=== PATIENT | male | born 1960 | race Caucasian/White ===

== ENCOUNTER 2021-02-22 09:54 | Emergency (ER) | payer BC, MEDICARE ==
--- NOTE | 2021-02-22 12:00 | RAD REPORT ---
EXAM DESCRIPTION: RAD - Wrist Right 3 View - 02/22/2021 10:33 am CLINICAL HISTORY: Right wrist pain status post injury FINDINGS: Moderately displaced fracture involves the distal radius. A 3 centimeter lucency is present at the fracture site which may indicate a fractures pathologic. No dislocation
--- NOTE | 2021-02-22 13:39 | ER ---
Nurse's Notes [facility] Name: Andrés Medellin Age: 60 yrs Sex: Male : 1960 Arrival Date: 02/22/2021 Time: 09:57 Bed 23 Private MD: Diagnosis: Pathological fracture, right radius-closed Presentation: 02/22 10:12 Chief complaint: Patient states: "I tripped and fell today and landed right onto my aa5 right wrist". Pt c/o pain to right wrist. Coronavirus screen: At this time, the client does not indicate any symptoms associated with coronavirus-19. Ebola Screen: Patient negative for fever greater than or equal to 101.5 degrees Fahrenheit, and additional compatible Ebola Virus Disease symptoms. Initial Sepsis Screen: Does the patient meet any 2 criteria? No. Patient's initial sepsis screen is negative. Does the patient have a suspected source of infection? No. Patient's initial sepsis screen is negative. Risk Assessment: Do you want to hurt yourself or someone else? Patient reports no desire to harm self or others. Onset of symptoms was February 2021. 10:12 Method Of Arrival: Wheelchair aa5 10:12 Acuity: INGRIS 4 aa5 Historical: - Allergies: 10:14 No Known Allergies; aa5 - PMHx: 10:14 Hypertension; aa5 - PSHx: 10:14 jaw sx; rotator cuff sx; aa5 - Immunization history:: Adult Immunizations unknown. - Social history:: Smoking status: Patient/guardian denies using tobacco, the patient reports quitting approximately 2 years ago. Screenin:40 Abuse screen: Denies threats or abuse. Nutritional screening: No deficits noted. aa5 Tuberculosis screening: No symptoms or risk factors identified. Fall Risk Fall in past 12 months (25 points). Ambulatory Aid- Crutches/Cane/Walker (15 pts). Assessment: 12:40 General: Appears comfortable, Behavior is calm, cooperative. Pain: Complains of pain in aa5 right wrist. Neuro: Level of Consciousness is awake, alert, obeys commands, Oriented to person, place, time, situation. Cardiovascular: Capillary refill < 3 seconds is brisk in bilateral fingers Patient's skin is warm and dry. Respiratory: Airway is patent Respiratory effort is even, unlabored, Respiratory pattern is regular, symmetrical. GI: No signs and/or symptoms were reported involving the gastrointestinal system. : No signs and/or symptoms were reported regarding the genitourinary system. EENT: No signs and/or symptoms were reported regarding the EENT system. Derm: Skin is pink, warm \\T\\ dry. Musculoskeletal: Swelling present in right wrist Reports pain in right wrist. 13:30 Reassessment: Patient is alert, oriented x 3, equal unlabored respirations, skin aa5 warm/dry/pink. 14:00 Reassessment: Patient is alert, oriented x 3, equal unlabored respirations, skin aa5 warm/dry/pink. 14:30 Reassessment: Patient is alert, oriented x 3, equal unlabored respirations, skin aa5 warm/dry/pink. Vital Signs: 10:12 BP 135 / 69; Pulse 83; Resp 18 S; Temp 97.9(TE); Pulse Ox 97% on R/A; Weight 115.67 kg aa5 (R); Height 5 ft. 11 in. (180.34 cm) (R); Pain 8/10; 13:30 BP 151 / 69; Pulse 85; Resp 16 S; Pulse Ox 98% on R/A; aa5 10:12 Body Mass Index 35.57 (115.67 kg, 180.34 cm) aa5 ED Course: 09:57 Patient arrived in ED. as 10:12 Arm band placed on. aa5 10:13 Triage completed. aa5 10:20 X-ray completed. Patient tolerated procedure well. md1 10:33 Wrist Right 3 View XRAY In Process Unspecified. EDMS 12:40 Patient has correct armband on for positive identification. Bed in low position. Call aa5 light in reach. Side rails up X 1. 12:41 Vincent Glasgow MD is Attending Physician. kdr 12:46 Katrin Hardy RN is Primary Nurse. aa5 13:38 Kole Huynh MD is Referral Physician. kdr 14:10 Orthoglass splint: Sugar tong splint applied on right arm. Sling applied to right arm. dh4 14:30 No provider procedures requiring assistance completed. Patient did not have IV access aa5 during this emergency room visit. Administered Medications: 13:30 Drug: TORadol - Ketorolac 15 mg Route: IM; Site: right deltoid; aa5 14:00 Follow up: Response: No adverse reaction aa5 Outcome: 13:38 Discharge ordered by . kdr 14:30 Discharged to home via wheelchair. aa5 14:30 Condition: stable 14:30 Discharge instructions given to patient, Instructed on discharge instructions, follow up and referral plans. medication usage, Demonstrated understanding of instructions, follow-up care, medications, Prescriptions given X 1. 14:32 Patient left the ED. aa5 Signatures: Dispatcher [employer] EDMS Vincent Glasgow MD MD kdr Martinez, Amelia as Calderon, Audri RN RN aa5 Lorene Arcos md1 Praneeth Issa 4 Corrections: (The following items were deleted from the chart) 10:16 10:14 Pulse 83bpm; Resp 18bpm; Spontaneous; Pulse Ox 97% RA; 115.67 kg Reported; Height aa5 5 ft. 11 in. Reported; BMI: 35.5; Pain 8/10; aa5 10:16 10:12 BP 135 / 69; Pulse 83bpm; Resp 18bpm; Spontaneous; Pulse Ox 97% RA; 115.67 kg aa5 Reported; Height 5 ft. 11 in. Reported; BMI: 35.5; Pain 8/10; aa5
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
[2021-02-22] MEDS ORDERED: KETOROLAC 30 MG/ML INJ ONE (13:46)
== END 2021-02-22 14:32 | disposition home or self-care (01) ==
LOC: ER 09:54
PROC: 2W3CX1Z Immobilization of Right Lower Arm using Splint (ICD-10-PCS; principal; 2021-02-22)
DX: S52.91XA Unspecified fracture of right forearm, initial encounter for closed fracture (principal); W19.XXXA Unspecified fall, initial encounter; Y93.9 Activity, unspecified; Y92.009 Unspecified place in unspecified non-institutional (private) residence as the place of occurrence of the external cause; I10 Essential (primary) hypertension
CPT/HCPCS: 96372; 99284

== ENCOUNTER 2022-04-11 13:25 | Emergency (ER) | payer OTHER ==
--- OUTSIDE RECORDS SUMMARY | 2022-04-11 13:30 | XMS REPORT | Continuity of Care Document ---
:1960 Author Organization [facility] t Address [address] [place] [address] Care Team Providers Name Role Phone VLAD DAVIS Primary Care Physician Unavailable SHILO Attending Clinician Unavailable SYSTEM, NOT IN Attending Clinician Unavailable Only, Test Attending Clinician Unavailable Ama GONZALEZ Attending Clinician AMA Attending Clinician Unavailable AMIRA Attending Clinician Unavailable KRISTIN Attending Clinician Unavailable OBEY PERDUE Attending Clinician Unavailable Galileo PARK Attending Clinician Unavailable DESHAUN Attending Clinician Unavailable DESHAUN Attending Clinician Unavailable Doctor Unassigned, Name Attending Clinician Unavailable Jarod GENTILE Attending Clinician Unavailable SETH URIAS Attending Clinician Unavailable Jarod Gentile MD Attending Clinician Gilberto PAZ Attending Clinician Unavailable Javier GONZALEZ Attending Clinician Nick TIWARI Attending Clinician August Varghese MD Attending Clinician Marcelo Grissom Attending Clinician Bolivar Ramírez MD Attending Clinician BOLIVAR RAMÍREZ Attending Clinician Unavailable [place] MD Attending Clinician Delmi Whitman MD Attending Clinician Delmi WHITMAN Attending Clinician Unavailable Marcelo FUNES Attending Clinician Unavailable Marcelo Lloyd Attending Clinician Tangela GONZALEZ Attending Clinician Nick TIWARI Admitting Clinician Payers Payer Name Policy Type Policy Number Effective Date Expiration Date Marcelo BOATENG/REGIS [id number] 2021 MEDICARE ADVANTAGE 00:00:00 [facility] KILO [id number] 2020 00:00:00 Problems Condition Condition Condition Status Onset Resolution Last Treating Co mments Source Name Details Category Date Date Treatment Clinician Date Coronary Coronary Disease Active Unive rs artery artery 6-18 [place] [facility] Atypical Atypical Disease Active Unive rs chest pain chest pain 6-17 it y of 00:00: [address] Obesity Obesity Disease Active Univers (BMI (BMI 6-17 ity of 30-39.9) 30-39.9) 00:00: [address] Essential Essential Disease Active Uni vers hypertensi hypertensi 6-17 it y of on on 00:00: [address] Dyslipidem Dyslipidem Disease Active U elida ia ia 6-17 ity of 00:00: [address] Lung Lung Disease Active Univers cancer cancer 6-15 ity of 00:00: [address] Lung mass Lung mass Disease Active Uni vers 5-20 ity of 00:00: [address] 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 00:00: [place] of right of right 00 Medica l radius due radius due Br anch to to neoplastic neoplastic disease disease with with routine routine healing, healing, subsequent subsequent encounter encounter No known No known Disease Unive rs active active ity of problems problems [facility] Allergies, Adverse Reactions, Alerts Allergy Allergy Status Severity Reaction(s) Onset Inactive Treating Comm ents Source Name Type Date Date Clinician NO KNOWN Drug Active Univers ALLERGIE Class ity of S [facility] Social History Social Habit Start Date Stop Date Quantity Comments Source Exposure to Not sure University of SARS-CoV-2 [facility] (event) Branch Education 2021-05-03 2021-05-03 15 University of 00:00:00 00:00:00 [facility] Tobacco Comment 2021-05-03 2021-05-03 Quit 2.5 years Unive rsity of 00:00:00 00:00:00 ago [facility] Tobacco use and 2021-02-05 2021-02-05 Never used [facility] llege of exposure 00:00:00 00:00:00 Medicine Alcohol intake 2021-02-05 2021-02-05 Current drinker [facility] of 00:00:00 00:00:00 of alcohol Medicine (finding) Sex Ass[birth year] [facility] llege of 00:00:00 00:00:00 Medicine Smoking Status Start Date Stop Date Source Current some day 2021-04-04 00:00:00 [facility] smoker [facility] Former smoker 2021-02-05 00:00:00 2021-02-05 00:00:00 [facility] home of [facility] Medications Ordered Filled Start Stop Current Ordering Indication Dosage Frequency Signature Comments Components Source Medication Medication Date Date Medication? Clinician (SIG) Name Name gadoteridol 2020- No [id number] .2mL/kg 21.7 mL Univers (PROHANCE-2 05-09 (0.2 mL/kg i ty of 0 mL) 16:30: 16:21 ?108.5 [place] injection 00 :00 kg), Medical 21.7 mL Intravenou Branch s, ONCE, 1 dose, Fri05/09/21 at 1130, Routine tc 2020- No [id number] 25i 25 Univer s 99m-medrona 05-07 millicurie i ty of te 16:00: 15:55 , [place] (DRAXIMAGE 00 :00 Intravenou Med ical MDP-25) s, ONCE, 1 Branch injection dose, 05/07/21 at millicurie 1100, Routine aspirin 81 Yes [id number] 81mg Take 1 U nivers mg chewable 6-19 tablet by ity of tablet 00:00: mouth [place] 00 daily. [facility] Branch aspirin 81 Yes [id number] 81mg Take 1 U nivers mg chewable 6-19 tablet by ity of tablet 00:00: mouth [place] 00 daily. [facility] aspirin 81 Yes [id number] 81mg Take 1 U nivers mg chewable 6-19 tablet by ity of tablet 00:00: mouth [place] 00 daily. [facility] aspirin 81 2020-0 Yes [id number] 81mg Take 1 U nivers mg chewable 6-19 tablet by ity of tablet 00:00: mouth [place] 00 daily. Medical Branch aspirin 81 2020-0 Yes [id number] 81mg Take 1 U nivers mg chewable 6-19 tablet by ity of tablet 00:00: mouth [place] 00 daily. Medical Branch aspirin 81 2020-0 Yes [id number] 81mg Take 1 U nivers mg chewable 6-19 tablet by ity of tablet 00:00: mouth [place] 00 daily. Medical Branch aspirin 81 2020-0 Yes [id number] 81mg Take 1 U nivers mg chewable 6-19 tablet by ity of tablet 00:00: mouth [place] 00 daily. Medical Branch aspirin 81 2020-0 Yes [id number] 81mg Take 1 U nivers mg chewable 6-19 tablet by ity of tablet 00:00: mouth [place] 00 daily. [facility] Branch diazePAM 5 0 Yes 10mg Take 10 mg U nivers mg tablet 6-18 by mouth. ity o f 18:53: [address] thyroid 60 2020-0 Yes 60mg Take 60 mg U nivers mg tablet 6-18 by mouth. ity o f 18:53: [address] diazePAM 5 2020-0 Yes 10mg Take 10 mg U nivers mg tablet 6-18 by mouth. ity o f 18:53: [address] thyroid 60 2020-0 Yes 60mg Take 60 mg U nivers mg tablet 6-18 by mouth. ity o f 18:53: [address] diazePAM 5 0 Yes 10mg Take 10 mg U nivers mg tablet 6-18 by mouth. ity o f 18:53: [address] thyroid 60 2020-0 Yes 60mg Take 60 mg U nivers mg tablet 6-18 by mouth. ity o f 18:53: [address] diazePAM 5 2020-0 Yes 10mg Take 10 mg U nivers mg tablet 6-18 by mouth. ity o f 18:53: [address] thyroid 60 2020-0 Yes 60mg Take 60 mg U nivers mg tablet 6-18 by mouth. ity o f 18:53: [address] diazePAM 5 2020-0 Yes 10mg Take 10 mg U nivers mg tablet 6-18 by mouth. ity o f 18:53: [address] thyroid 60 2020-0 Yes 60mg Take 60 mg U nivers mg tablet 6-18 by mouth. ity o f 18:53: [address] diazePAM 5 2020-0 Yes 10mg Take 10 mg U nivers mg tablet 6-18 by mouth. ity o f 18:53: [address] thyroid 60 2020-0 Yes 60mg Take 60 mg U nivers mg tablet 6-18 by mouth. ity o f 18:53: [address] diazePAM 5 2020-0 Yes 10mg Take 10 mg U nivers mg tablet 6-18 by mouth. ity o f 18:53: [address] thyroid 60 2020-0 Yes 60mg Take 60 mg U nivers mg tablet 6-18 by mouth. ity o f 18:53: [address] diazePAM 5 2020-0 Yes 10mg Take 10 mg U nivers mg tablet 6-18 by mouth. ity o f 18:53: [address] thyroid 60 2020-0 Yes 60mg Take 60 mg U nivers mg tablet 6-18 by mouth. ity o f 18:53: [address] sulfur 2020-0 2020- No [id number] 5mL 5 mL, Unive rs hexafluorid 18 05-04 Intravenou i ty of e microsphr 15:30: 15:30 s, ONCE, 1 [place] (LUMASON) 00 :00 dose, Fri Medic al injection 5 05/04/21 at Br anch mL 1030, Routine
cleaning crew member approving Restricted medication : CHINTAN FORD lisinopriL Yes 40mg 40 mg, Unive rs (PRINIVIL,Z 18 Oral, ity of ESTRIL) 14:00: DAILY, [place] tablet 40 00 First dose Medi frances mg on Fri Branch 05/04/21 at 0900, Until Discontinu ed fenofibrate Yes 67mg 67 mg, Univ ers micronized 18 Oral, ity of (LOFIBRA) 14:00: DAILY, [place] capsule 67 00 First dose Med ical mg on Fri Branch 05/04/21 at 0900, Until Discontinu ed aspirin Yes 81mg 81 mg, Univers chewable 6-18 Oral, ity of tablet 81 14:00: DAILY, [place] mg 00 First dose Medical on Fri Branch 05/04/21 at 0900, Until Discontinu ed, Routine diazePAM 5 Yes 10mg Take 10 mg U nivers mg tablet 6-18 by mouth. ity o f 13:53: [address] thyroid 60 2020-0 Yes 60mg Take 60 mg U nivers mg tablet 6-18 by mouth. ity o f 13:53: [address] carvediloL Yes 12.5mg 12.5 mg, U nivers (COREG) 6-18 Oral, BID ity of tablet 12.5 13:00: [place] 00 First dose Medical on Fri Branch 05/04/21 at 0800, Until Discontinu ed, Routine thyroid Yes 60mg 60 mg, Univers (ARMOUR 6-18 Oral, ity of THYROID) 11:00: QAM-0600, [place] tablet 60 00 First dose Medi frances mg on Fri Branch 05/04/21 at 0600, Until Discontinu ed, Routine carvediloL Yes [id number] 12.5mg Take 1 Univers 12.5 mg 6-18 tablet by ity of tablet 00:00: mouth (two) Medical times Branch daily with meals. carvediloL Yes [id number] 12.5mg Take 1 Univers 12.5 mg 6-18 tablet by ity of tablet 00:00: mouth (two) Medical times Branch daily with meals. carvediloL Yes [id number] 12.5mg Take 1 Univers 12.5 mg 6-18 tablet by ity of tablet 00:00: mouth 2 (two) Medical times Branch daily with meals. carvediloL 0 Yes [id number] 12.5mg Take 1 Univers 12.5 mg 6-18 tablet by ity of tablet 00:00: mouth (two) Medical times Branch daily with meals. carvediloL Yes [id number] 12.5mg Take 1 Univers 12.5 mg 6-18 tablet by ity of tablet 00:00: mouth 2 (two) Medical times Branch daily with meals. carvediloL Yes [id number] 12.5mg Take 1 Univers 12.5 mg 6-18 tablet by ity of tablet 00:00: mouth 2 [place] (two) Medical times Branch daily with meals. carvediloL Yes [id number] 12.5mg Take 1 Univers 12.5 mg 6-18 tablet by ity of tablet 00:00: mouth 2 [place] 00 (two) Medical times Branch daily with meals. carvediloL Yes [id number] 12.5mg Take 1 Univers 12.5 mg 6-18 tablet by ity of tablet 00:00: mouth 2 [place] (two) Medical times Branch daily with meals. diazePAM Yes 5mg 5 mg, Univers (VALIUM) 05-03 Oral, ity of tablet 5 mg 23:32: BIDPRN, [place] 44 Starting [facility] 05/03/21 at 1832, Until Discontinu ed, Routine, Agitation, Anxiety hydralAZINE Yes 10mg 10 mg, Univ ers (APRESOLINE 05-03 Slow IV ity o f ) injection 23:21: Push, [place] 10 mg 02 Q6HPRN, Medical Starting Branch [facility] 05/03/21 at 1821, Until Discontinu ed, Routine, DBP=>100; SBP=>160, For SBP > 160
Ind ication: Hypertensi ve Emergency enoxaparin Yes 40mg 40 mg, Unive rs (LOVENOX) 05-03 Subcutaneo ity of injection 22:00: [place], [place], [place] 40 mg 00 First dose Medical on [facility] Branch 05/03/21 at 1700, Until Discontinu ed, Routine morpHINE 2020- No 4mg 4 mg, Slow Un cat injection 4 05-0318 IV Push, ity of mg 21:28: 21:27 Q3HPRN, [place] 53 :53 Starting [facility] 05/03/21 at 1628, Until Fri05/04/21 at 1627, Routine, Pain (scale 7-10) HYDROcodone 2020- No 1{tbl} 1 tablet, Univers -acetaminop 05-0319 Oral, ity of hen (NORCO 21:28: 21:27 Q6HPRN, [place] 5) 5-325 mg 43 :43 Starting Medi frances tablet 1 [facility] [place] tablet 05/03/21 at 1628, Until 05/05/21 at 1627, Routine, Pain (scale 4-6) acetaminoph Yes 650mg 650 mg, Un cat en 05-03 Oral, ity of (TYLENOL) 21:28: Q6HPRN, [place] tablet 650 40 Starting Medic al mg [facility]ie [place] 05/03/21 at 1628, Until Discontinu ed, Routine, Pain (scale 1-3) aspirin 2020- No 325mg 325 mg, Unive rs tablet 325 05-03 Oral, ity of mg 19:15: 18:39 ONCE, 1 [place] 00 :00 dose, [facility] 05/03/21 at [place] 1415, STAT cloNIDine 2020- No .1mg 0.1 mg, Univ ers (CATAPRES) 05-03 Oral, ity of tablet 0.1 19:00: 18:39 ONCE, 1 [place] mg 00 :00 dose, [facility] 05/03/21 at [place] 1400, STAT iopamidol 2020- No [id number] 100mL 100 mL, Univers (ISOVUE 05-03 Intravenou ity o f 370-500 mL) 18:30: 17:21 s, ONCE, 1 [place] injection 00 :00 dose, Jessie Medic al 100 mL 05/03/21 at [place] 1330, Routine hydralAZINE 2020- No PRN, Unive rs (APRESOLINE 5-25 05-25 Starting ity of ) injection 18:40: 18:40 [facility] 00 :00 04/10/21 at [facility] 1340, Branch Until [facility] 04/10/21 at 1340, STAT hydralAZINE 2020- No PRN, Unive rs (APRESOLINE 5-25 05-25 Starting ity of ) injection 18:40: 18:40 [facility] 00 :00 04/10/21 at Medical 1340, Branch Until [facility] 04/10/21 at 1340, STAT gadoteridol 2020- No [id number] .2mL/kg 0.2 mL/kg, Univers (PROHANCE-2 03-29 Intravenou i ty of 0 mL) 20:15: 20:14 s, ONCE, 1 [place] injection 00 :00 dose, Jessie Medic al 0.2 mL/kg 03/29/21 at [facility] 1515, Routine iohexol 2020- No [id number] 120mL 120 mL, Univers (OMNIPAQUE 03-15 Intravenou it y of 350 18:15: 17:50 s, ONCE, 1 [place] BULK-150 00 :00 dose, Jessie Medica l mL) 03/15/21 at Branch injection 1315, 120 mL Routine diazePAM 5 Yes 10mg Take 10 mg U nivers mg tablet 4-13 by mouth. ity o f 19:40: [address] thyroid 60 2020-0 Yes 60mg Take 60 mg U nivers mg tablet 4-13 by mouth. ity o f 19:40: [address] diazePAM 5 0 Yes 10mg Take 10 mg U nivers mg tablet 4-13 by mouth. ity o f 19:40: [address] thyroid 60 0 Yes 60mg Take 60 mg U nivers mg tablet 4-13 by mouth. ity o f 19:40: [address] diazePAM 5 2020-0 Yes 10mg Take 10 mg U nivers mg tablet 4-13 by mouth. ity o f 19:40: [address] thyroid 60 2020-0 Yes 60mg Take 60 mg U nivers mg tablet 4-13 by mouth. ity o f 19:40: [address] diazePAM 5 0 Yes 10mg Take 10 mg U nivers mg tablet 4-13 by mouth. ity o f 19:40: [address] thyroid 60 2020-0 Yes 60mg Take 60 mg U nivers mg tablet 4-13 by mouth. ity o f 19:40: [address] diazePAM 5 2020-0 Yes 10mg Take 10 mg U nivers mg tablet 4-13 by mouth. ity o f 19:40: [address] thyroid 60 2020-0 Yes 60mg Take 60 mg U nivers mg tablet 4-13 by mouth. ity o f 19:40: [address] diazePAM 5 2020-0 Yes 10mg Take 10 mg U nivers mg tablet 4-13 by mouth. ity o f 19:40: [address] thyroid 60 2020-0 Yes 60mg Take 60 mg U nivers mg tablet 4-13 by mouth. ity o f 19:40: [address] diazePAM 5 2020-0 Yes 10mg Take 10 mg U nivers mg tablet 4-13 by mouth. ity o f 19:40: [address] thyroid 60 2020-0 Yes 60mg Take 60 mg U nivers mg tablet 4-13 by mouth. ity o f 19:40: [address] diazePAM 5 2020-0 Yes 10mg Take 10 mg U nivers mg tablet 4-13 by mouth. ity o f 19:40: [address] thyroid 60 2020-0 Yes 60mg Take 60 mg U nivers mg tablet 4-13 by mouth. ity o f 19:40: [address] diazePAM 5 2020-0 Yes 10mg Take 10 mg U nivers mg tablet 4-13 by mouth. ity o f 19:40: [address] thyroid 60 2020-0 Yes 60mg Take 60 mg U nivers mg tablet 4-13 by mouth. ity o f 19:40: [address] diazePAM 5 2020-0 Yes 10mg Take 10 mg U nivers mg tablet 4-13 by mouth. ity o f 19:40: [address] thyroid 60 2020-0 Yes 60mg Take 60 mg U nivers mg tablet 4-13 by mouth. ity o f 19:40: [address] diazePAM 5 2020-0 Yes 10mg Take 10 mg U nivers mg tablet 4-13 by mouth. ity o f 19:40: [address] thyroid 60 2020-0 Yes 60mg Take 60 mg U nivers mg tablet 4-13 by mouth. ity o f 19:40: [address] diazePAM 5 2020-0 Yes 10mg Take 10 mg U nivers mg tablet 4-13 by mouth. ity o f 19:40: [address] thyroid 60 2020-0 Yes 60mg Take 60 mg U nivers mg tablet 4-13 by mouth. ity o f 19:40: [address] diazePAM 5 2020-0 Yes 10mg Take 10 mg U nivers mg tablet 4-13 by mouth. ity o f 19:40: [address] thyroid 60 2020-0 Yes 60mg Take 60 mg U nivers mg tablet 4-13 by mouth. ity o f 19:40: [address] diazePAM 5 2020-0 Yes 10mg Take 10 mg U nivers mg tablet 4-13 by mouth. ity o f 19:40: [address] thyroid 60 2020-0 Yes 60mg Take 60 mg U nivers mg tablet 4-13 by mouth. ity o f 19:40: [address] diazePAM 5 2020-0 Yes 10mg Take 10 mg U nivers mg tablet 4-13 by mouth. ity o f 19:40: [address] thyroid 60 2020-0 Yes 60mg Take 60 mg U nivers mg tablet 4-13 by mouth. ity o f 19:40: [address] diazePAM 5 2020-0 Yes 10mg Take 10 mg U nivers mg tablet 4-13 by mouth. ity o f 19:40: [address] thyroid 60 2020-0 Yes 60mg Take 60 mg U nivers mg tablet 4-13 by mouth. ity o f 19:40: [address] diazePAM 5 2020-0 Yes 10mg Take 10 mg U nivers mg tablet 4-13 by mouth. ity o f 19:40: [address] thyroid 60 2020-0 Yes 60mg Take 60 mg U nivers mg tablet 4-13 by mouth. ity o f 19:40: [address] diazePAM 5 2020-0 Yes 10mg Take 10 mg U nivers mg tablet 4-13 by mouth. ity o f 19:40: [address] thyroid 60 2020-0 Yes 60mg Take 60 mg U nivers mg tablet 4-13 by mouth. ity o f 19:40: [address] diazePAM 5 2020-0 Yes 10mg Take 10 mg U nivers mg tablet 4-13 by mouth. ity o f 19:40: [address] thyroid 60 2020-0 Yes 60mg Take 60 mg U nivers mg tablet 4-13 by mouth. ity o f 19:40: [address] diazePAM 5 2020-0 Yes 10mg Take 10 mg U nivers mg tablet 4-13 by mouth. ity o f 19:40: [address] Branch thyroid 60 2020-0 Yes 60mg Take 60 mg U nivers mg tablet 4-13 by mouth. ity o f 19:40: [address] Branch diazePAM 5 2020-0 Yes 10mg Take 10 mg U nivers mg tablet 4-13 by mouth. ity o f 19:40: [address] thyroid 60 2020-0 Yes 60mg Take 60 mg U nivers mg tablet 4-13 by mouth. ity o f 19:40: [place] [id number] Medical Branch acetaminoph 2020-0 Yes Univer s en-codeine 4-08 ity of 300-30 mg 00:00: [place] tablet 00 Medical Branch acetaminoph 2020-0 Yes Univer s en-codeine 4-08 ity of 300-30 mg 00:00: [place] tablet Medical Branch acetaminoph 2020-0 Yes Univer s en-codeine 4-08 ity of 300-30 mg 00:00: [place] tablet 00 Medical Branch acetaminoph 2021-0 Yes Univer s en-codeine 4-08 ity of 300-30 mg 00:00: [place] tablet 00 Medical Branch acetaminoph 2020-0 Yes Univer s en-codeine 4-08 ity of 300-30 mg 00:00: [place] tablet 00 Medical Branch acetaminoph 1-0 Yes Univer s en-codeine 4-08 ity of 300-30 mg 00:00: [place] tablet 00 Medical Branch acetaminoph 1-0 Yes Univer s en-codeine 4-08 ity of 300-30 mg 00:00: [place] tablet 00 Medical Branch acetaminoph 2021-0 Yes Univer s en-codeine 4-08 ity of 300-30 mg 00:00: [place] tablet 00 Medical Branch acetaminoph 1-0 Yes Univer s en-codeine 4-08 ity of 300-30 mg 00:00: [place] tablet 00 Medical Branch acetaminoph 2021-0 Yes Univer s en-codeine 4-08 ity of 300-30 mg 00:00: [place] tablet 00 Medical Branch acetaminoph 2021-0 Yes Univer s en-codeine 4-08 ity of 300-30 mg 00:00: [place] tablet 00 Medical Branch acetaminoph 2021-0 Yes Univer s en-codeine 4-08 ity of 300-30 mg 00:00: [place] tablet 00 Medical Branch acetaminoph 2021-0 Yes Univer s en-codeine 4-08 ity of 300-30 mg 00:00: [place] tablet 00 Medical Branch acetaminoph 2021-0 Yes Univer s en-codeine 4-08 ity of 300-30 mg 00:00: [place] tablet 00 Medical Branch acetaminoph 2021-0 Yes Univer s en-codeine 4-08 ity of 300-30 mg 00:00: [place] tablet 00 Medical Branch acetaminoph 2021-0 Yes Univer s en-codeine 4-08 ity of 300-30 mg 00:00: [place] tablet 00 Medical Branch acetaminoph 2021-0 Yes Univer s en-codeine 4-08 ity of 300-30 mg 00:00: [place] tablet 00 Medical Branch acetaminoph 2021-0 Yes Univer s en-codeine 4-08 ity of 300-30 mg 00:00: [place] tablet 00 Medical Branch acetaminoph 2021-0 Yes Univer s en-codeine 4-08 ity of 300-30 mg 00:00: [place] tablet 00 Medical Branch acetaminoph 2021-0 Yes Univer s en-codeine 4-08 ity of 300-30 mg 00:00: [place] tablet 00 Medical Branch acetaminoph 2021-0 Yes Univer s en-codeine 4-08 ity of 300-30 mg 00:00: [place] tablet 00 Medical Branch acetaminoph 2021-0 1- No Unive rs en-codeine 4-08 -17 ity of 300-30 mg 00:00: 00:00 [place] tablet 00 :00 Medical Branch acetaminoph 2021-0 1- No Unive rs en-codeine 4-08 -17 ity of 300-30 mg 00:00: 00:00 [place] tablet 00 :00 Medical Branch methylPREDN 2020-0 1- No [id number] B ten [place] 02-05 [employer] acetate 19:30: 19:38 of (DEPO-MEDRO 00 :00 Medicin L) 40 MG/ML e 80 mg, lidocaine 1% (10 mg/mL) 2 mL, bupivacaine (MARCAINE) 0.5 % 2 mL methylPREDN 2020- No [id number] Intra-chance [facility] ISolone 3-22 22 cular, [place] acetate 19:30: 19:38 ONCE, 1 of (DEPO-MEDRO 00 :00 dose, Mon Med icin L) 40 MG/ML 02/05/21 at e 80 mg, 1430 lidocaine 1% (10 mg/mL) 2 mL, bupivacaine (MARCAINE) 0.5 % 2 mL metformin Yes 1000mg Take 1,000 Julio (GLUCOPHAGE 3-22 mg by [place] ) 1000 MG 18:32: mouth. of tablet 37 Medicin e thyroid Yes 60mg Take 60 mg [place] (ARMOUR) 60 -22 by mouth. Col lege MG tablet 18:32: of 37 Medicin e ramipril Yes [facility] (ALTACE) 10 2- College MG capsule 00:00: of 00 Medicin e fenofibrate Yes [facility] (TRICOR) 2- College 145 MG 00:00: of tablet 00 Medicin e fenofibrate Yes Univer s 145 mg 2- ity of tablet 00:00: [place] Medical Branch metformin 2020-0 Yes Univers ER 750 mg 2- ity of 24 hr 00:00: [place] tablet Medical Branch ramipriL 10 0 Yes Univer s mg capsule 2- ity of 00:00: Medical Branch fenofibrate 2020-0 Yes Univer s 145 mg 2- ity of tablet 00:00: [place] Medical Branch metformin 2020-0 Yes Univers ER 750 mg 2- ity of 24 hr 00:00: [place] tablet Medical Branch ramipriL 10 0 Yes Univer s mg capsule 2- ity of 00:00: [place] Medical [facility] fenofibrate 2020-0 Yes Univer s 145 mg 2-01 ity of tablet 00:00: [place] Medical Branch metformin 2020-0 Yes Univers ER 750 mg 2- ity of 24 hr 00:00: [place] tablet 00 Medical Branch ramipriL 10 0 Yes Univer s mg capsule 2- ity of 00:00: Medical Branch fenofibrate 2020-0 Yes Univer s 145 mg 2-01 ity of tablet 00:00: [place] 00 Medical Branch metformin 2021-0 Yes Univers ER 750 mg 2-01 ity of 24 hr 00:00: [place] tablet 00 Medical Branch ramipriL 10 2020-0 Yes Univer s mg capsule 2-01 ity of 00:00: [place] Medical Branch fenofibrate 1-0 Yes Univer s 145 mg 2-01 ity of tablet 00:00: [place] Medical [facility] metformin 1-0 Yes Univers ER 750 mg 2-01 ity of 24 hr 00:00: [place] tablet Medical Branch ramipriL 10 2020-0 Yes Univer s mg capsule 2-01 ity of 00:00: [place] Medical Branch fenofibrate 1-0 Yes Univer s 145 mg 2-01 ity of tablet 00:00: [place] Medical [facility] metformin 1-0 Yes Univers ER 750 mg 2-01 ity of 24 hr 00:00: [place] tablet Medical Branch ramipriL 10 2020-0 Yes Univer s mg capsule 2- ity of 00:00: [place] Medical Branch fenofibrate 1-0 Yes Univer s 145 mg 2-01 ity of tablet 00:00: [place] Medical Branch metformin 1-0 Yes Univers ER 750 mg 2-01 ity of 24 hr 00:00: [place] tablet Medical Branch ramipriL 10 2020-0 Yes Univer s mg capsule 2-01 ity of 00:00: [place] [facility] fenofibrate 1-0 Yes Univer s 145 mg 2-01 ity of tablet 00:00: [place] [facility] metformin 2021-0 Yes Univers ER 750 mg 2-01 ity of 24 hr 00:00: [place] tablet Medical Branch ramipriL 10 1-0 Yes Univer s mg capsule 2-01 ity of 00:00: [place] [facility] fenofibrate 2021-0 Yes Univer s 145 mg 2-01 ity of tablet 00:00: [place] [facility] metformin 2021-0 Yes Univers ER 750 mg 2-01 ity of 24 hr 00:00: [place] tablet 00 Medical Branch ramipriL 10 1-0 Yes Univer s mg capsule 2-01 ity of 00:00: [place] [facility] fenofibrate 2021-0 Yes Univer s 145 mg 2-01 ity of tablet 00:00: [place] 00 Medical Branch metformin 2021-0 Yes Univers ER 750 mg 2-01 ity of 24 hr 00:00: [place] tablet Medical Branch ramipriL 10 1-0 Yes Univer s mg capsule 2- ity of 00:00: [place] [facility] fenofibrate 2021-0 Yes Univer s 145 mg 2-01 ity of tablet 00:00: [place] [facility] metformin 1-0 Yes Univers ER 750 mg 2-01 ity of 24 hr 00:00: [place] tablet Medical Branch ramipriL 10 2020-0 Yes Univer s mg capsule 2- ity of 00:00: [place] [facility] fenofibrate 1-0 Yes Univer s 145 mg 2- ity of tablet 00:00: [place] [facility] metformin 1-0 Yes Univers ER 750 mg 2- ity of 24 hr 00:00: [place] tablet Medical Branch ramipriL 10 2020-0 Yes Univer s mg capsule 2- ity of 00:00: [place] [facility] fenofibrate 1-0 Yes Univer s 145 mg 2- ity of tablet 00:00: [place] Medical Branch metformin 2021-0 Yes Univers ER 750 mg 2-01 ity of 24 hr 00:00: [place] [facility] ramipriL 10 1-0 Yes Univer s mg capsule 2- ity of 00:00: [place] [facility] fenofibrate 2021-0 Yes Univer s 145 mg 2- ity of tablet 00:00: [place] [facility] metformin 2021-0 Yes Univers ER 750 mg 2-01 ity of 24 hr 00:00: [place] [facility] ramipriL 10 1-0 Yes Univer s mg capsule 2-01 ity of 00:00: [place] [facility] fenofibrate 2021-0 Yes Univer s 145 mg 2-01 ity of tablet 00:00: [place] [facility] metformin 2021-0 Yes Univers ER 750 mg 2-01 ity of 24 hr 00:00: [place] [facility] ramipriL 10 1-0 Yes Univer s mg capsule 2-01 ity of 00:00: [place] [facility] fenofibrate 2021-0 Yes Univer s 145 mg 2-01 ity of tablet 00:00: [place] 00 [facility] metformin 2021-0 Yes Univers ER 750 mg 2-01 ity of 24 hr 00:00: [place] tablet 00 Medical Branch ramipriL 10 1-0 Yes Univer s mg capsule 2-01 ity of 00:00: Medical Branch fenofibrate 2021-0 Yes Univer s 145 mg 2-01 ity of tablet 00:00: [place] [facility] metformin 2021-0 Yes Univers ER 750 mg 2-01 ity of 24 hr 00:00: [place] tablet 00 Medical Branch ramipriL 10 1-0 Yes Univer s mg capsule 2- ity of 00:00: [place] [facility] fenofibrate 2021-0 Yes Univer s 145 mg 2-01 ity of tablet 00:00: [place] [facility] metformin 1-0 Yes Univers ER 750 mg 2- ity of 24 hr 00:00: [place] [facility] ramipriL 10 1-0 Yes Univer s mg capsule 2- ity of 00:00: [place] [facility] fenofibrate 1-0 Yes Univer s 145 mg 2- ity of tablet 00:00: [place] [facility] metformin 2021-0 Yes Univers ER 750 mg 2-01 ity of 24 hr 00:00: [place] [facility] ramipriL 10 1-0 Yes Univer s mg capsule 2- ity of 00:00: [place] [facility] fenofibrate 2021-0 Yes Univer s 145 mg 2-01 ity of tablet 00:00: [place] [facility] metformin 2021-0 Yes Univers ER 750 mg 2-01 ity of 24 hr 00:00: [place] [facility] ramipriL 10 1-0 Yes Univer s mg capsule 2-01 ity of 00:00: [place] [facility] fenofibrate 2021-0 Yes Univer s 145 mg 2-01 ity of tablet 00:00: [place] [facility] metformin 2021-0 Yes Univers ER 750 mg 2-01 ity of 24 hr 00:00: [place] [facility] ramipriL 10 1-0 Yes Univer s mg capsule 2-01 ity of 00:00: [place] [facility] fenofibrate 2021-0 Yes Univer s 145 mg 2-01 ity of tablet 00:00: [place] [facility] metformin 2021-0 Yes Univers ER 750 mg 2-01 ity of 24 hr 00:00: [place] [facility] ramipriL 10 2020-0 Yes Univer s mg capsule 2-01 ity of 00:00: Medical Branch fenofibrate 2021-0 Yes Univer s 145 mg 2-01 ity of tablet 00:00: [place] [facility] metformin 2021-0 Yes Univers ER 750 mg 2-01 ity of 24 hr 00:00: [place] [facility] ramipriL 10 2020-0 Yes Univer s mg capsule 2-01 ity of 00:00: [place] [facility] fenofibrate 1-0 Yes Univer s 145 mg 2-01 ity of tablet 00:00: [place] [facility] metformin 1-0 Yes Univers ER 750 mg 2- ity of 24 hr 00:00: [place] [facility] ramipriL 10 2020-0 Yes Univer s mg capsule 2- ity of 00:00: [place] [facility] fenofibrate 1-0 Yes Univer s 145 mg 2-01 ity of tablet 00:00: [place] [facility] metformin 1-0 Yes Univers ER 750 mg 2-01 ity of 24 hr 00:00: [place] [facility] ramipriL 10 2020-0 Yes Univer s mg capsule 2-01 ity of 00:00: [place] [facility] fenofibrate 1-0 Yes Univer s 145 mg 2-01 ity of tablet 00:00: [place] [facility] metformin 2021-0 Yes Univers ER 750 mg 2-01 ity of 24 hr 00:00: [place] [facility] ramipriL 10 1-0 Yes Univer s mg capsule 2-01 ity of 00:00: [place] [facility] fenofibrate 2021-0 Yes Univer s 145 mg 2-01 ity of tablet 00:00: [place] [facility] metformin 2021-0 Yes Univers ER 750 mg 2-01 ity of 24 hr 00:00: [place] [facility] ramipriL 10 2020-0 Yes Univer s mg capsule 2-01 ity of 00:00: [place] [facility] fenofibrate 2021-0 Yes Univer s 145 mg 2-01 ity of tablet 00:00: [place] [facility] metformin 2020-0 Yes Univers ER 750 mg 2-01 ity of 24 hr 00:00: [place] [facility] ramipriL 10 2020-0 Yes Univer s mg capsule 2- ity of 00:00: [place] [facility] fenofibrate 2020-0 Yes Univer s 145 mg 2- ity of tablet 00:00: [place] [facility] metformin 2020-0 Yes Univers ER 750 mg 2- ity of 24 hr 00:00: [place] [facility] ramipriL 10 2020-0 Yes Univer s mg capsule 2- ity of 00:00: [place] [facility] fenofibrate 2020-0 Yes Univer s 145 mg 2- ity of tablet 00:00: [place] [facility] metformin 2020-0 Yes Univers ER 750 mg 2- ity of 24 hr 00:00: [place] [facility] ramipriL 10 2020-0 Yes Univer s mg capsule 2- ity of 00:00: [place] [facility] metoprolol 2020-0 Yes Julio (LOPRESSOR) 1-27 College 50 MG 00:00: of tablet 00 Medicin e metoprolol 0 Yes Univers tartrate 50 1-27 ity of mg tablet 00:00: [place] [facility] metoprolol 2020-0 Yes Univers tartrate 50 1-27 ity of mg tablet 00:00: [place] [facility] metoprolol 2020-0 Yes Univers tartrate 50 1-27 ity of mg tablet 00:00: [place] [facility] metoprolol 2020-0 Yes Univers tartrate 50 1-27 ity of mg tablet 00:00: [place] [facility] metoprolol 2020-0 Yes Univers tartrate 50 1-27 ity of mg tablet 00:00: [place] [facility] [place] metoprolol 2020-0 Yes Univers tartrate 50 1-27 ity of mg tablet 00:00: [place] [facility] metoprolol 2020-0 Yes Univers tartrate 50 1-27 ity of mg tablet 00:00: [place] [facility] metoprolol 2020-0 Yes Univers tartrate 50 1-27 ity of mg tablet 00:00: [place] [facility] metoprolol 2020-0 Yes Univers tartrate 50 1-27 ity of mg tablet 00:00: [place] [address] [facility] [place] metoprolol 0 Yes Univers tartrate 50 1-27 ity of mg tablet 00:00: [place] [facility] metoprolol 2020-0 Yes Univers tartrate 50 1-27 ity of mg tablet 00:00: [place] [facility] metoprolol 2020-0 Yes Univers tartrate 50 1-27 ity of mg tablet 00:00: [place] [facility] metoprolol 2020-0 Yes Univers tartrate 50 1-27 ity of mg tablet 00:00: [place] [facility] metoprolol 2020-0 Yes Univers tartrate 50 1-27 ity of mg tablet 00:00: [place] [facility] metoprolol 0 Yes Univers tartrate 50 1-27 ity of mg tablet 00:00: [place] [facility] metoprolol 0 Yes Univers tartrate 50 1-27 ity of mg tablet 00:00: [place] [facility] metoprolol 2020-0 Yes Univers tartrate 50 1-27 ity of mg tablet 00:00: [place] [facility] metoprolol 0 Yes Univers tartrate 50 1-27 ity of mg tablet 00:00: [place] [facility] metoprolol 0 Yes Univers tartrate 50 1-27 ity of mg tablet 00:00: [place] [facility] metoprolol 2020-0 Yes Univers tartrate 50 1-27 ity of mg tablet 00:00: [place] [facility] metoprolol 0 Yes Univers tartrate 50 1-27 ity of mg tablet 00:00: [place] [facility] metoprolol 0 1- No Univer s tartrate 50 1-27 06-18 ity of mg tablet 00:00: 00:00 [place] 00 :00 [facility] [place] metoprolol 0 1- No Univer s tartrate 50 1-27 06-18 ity of mg tablet 00:00: 00:00 [place] 00 :00 [facility] Vital Signs Vital Name Observation Time Observation Value Comments Source Systolic blood 2021-05-04 12:05:00 131 mm[Hg] Univer sity of pressure [facility] Diastolic blood 2021-05-04 12:05:00 88 mm[Hg] Unive rsity of pressure [facility] Heart rate 2021-05-04 12:05:00 69 /min [facility] [place] [facility] Body temperature 2021-05-04 12:05:00 36.56 Analia Univ ersity of [place] [facility] Respiratory rate 2021-05-04 12:05:00 16 /min Univ ersity of [place] [facility] Oxygen saturation in 2021-05-04 12:05:00 99 /min University of Arterial blood by [place] [facility] Pulse oximetry Branch Body weight 2021-05-04 10:00:00 108.5 kg [facility]i ty [facility] [place] [facility] BMI 2021-05-04 10:00:00 33.38 kg/m2 [facility] [place] [facility] Body height 2021-05-04 01:00:00 180.3 cm [facility]i [facility] [place] [facility] Systolic blood 2021-05-01 19:26:00 232 mm[Hg] Univer sity of pressure [place] [facility] Diastolic blood 2021-05-01 19:26:00 114 mm[Hg] Unive rsity of pressure [place] [facility] Heart rate 2021-05-01 19:26:00 90 /min [facility]i [facility] [place] [facility] Body temperature 2021-05-01 19:26:00 35.78 Analia Univ ersity [facility] [place] [facility] Respiratory rate 2021-05-01 19:26:00 19 /min Univ ersity of [place] [facility] Body height 2021-05-01 19:26:00 180.3 cm [facility] [place] [facility] Body weight 2021-05-01 19:26:00 110.179 kg [facility] [place] [facility] BMI 2021-05-01 19:26:00 33.88 kg/m2 Universi ty [facility] [place] [facility] Oxygen saturation in 2021-05-01 19:26:00 98 /min University of Arterial blood by [facility] frances Pulse oximetry Branch Systolic blood 2021-04-10 18:33:00 212 mm[Hg] Univer sity of pressure [place] [facility] Diastolic blood 2021-04-10 18:33:00 125 mm[Hg] Unive rsity of pressure [place] [facility] Heart rate 2021-04-10 18:33:00 64 /min Universi ty [facility] [place] [facility] Respiratory rate 2021-04-10 18:33:00 16 /min Univ ersity of [place] [facility] Oxygen saturation in 2021-04-10 18:33:00 97 /min University of Arterial blood by [facility] Pulse oximetry Branch Systolic blood 2021-03-12 18:54:00 183 mm[Hg] Univer sity of pressure [facility] Diastolic blood 2021-03-12 18:54:00 81 mm[Hg] Unive rsity of pressure [facility] Heart rate 2021-03-12 18:54:00 66 /min Universi ty of [facility] Body height 2021-03-12 18:48:00 185.4 cm Universi ty of [facility] Body weight 2021-03-12 18:48:00 117.028 kg [facility]i ty [facility] [place] [facility] BMI 2021-03-12 18:48:00 34.04 kg/m2 Universi ty of [facility] Systolic blood 2021-02-27 19:36:00 144 mm[Hg] Univer sity of pressure [facility] Diastolic blood 2021-02-27 19:36:00 90 mm[Hg] Unive rsity of pressure [facility] Heart rate 2021-02-27 19:36:00 66 /min Universi ty of [place] [facility] [place] Body height 2021-02-27 19:36:00 185.4 cm Universi ty of [place] [facility] [place] Body weight 2021-02-27 19:36:00 113.399 kg [facility]i [facility] [place] [facility] BMI 2021-02-27 19:36:00 32.98 kg/m2 Universi ty of [facility] Systolic blood 2021-02-05 18:28:00 196 mm[Hg] [facility] pressure Medicine Diastolic blood 2021-02-05 18:28:00 96 mm[Hg] [facility] of pressure Medicine Heart rate 2021-02-05 18:28:00 66 /min [facility] Body height 2021-02-05 18:28:00 [facility] 2021-02-05 18:28:00 122.471 kg [facility] BMI 2021-02-05 18:28:00 37.66 kg/m2 [facility] Procedures Procedure Date / Time Performing Clinician Source Performed AUTHORIZATION FOR RELEASE 2021-05-24 05:01:00 Doctor Unassigned, [facility] [place] [facility] SCANNED LAB RESULTS 2021-05-10 05:01:00 Doctor Unassigned, [facility] [place] MR BRAIN W WO CONTRAST 2021-05-09 16:39:21 BrendaJovi [facility] NM BONE WHOLE BODY 2021-05-07 19:40:22 [facility] NM BONE WHOLE BODY 2021-05-07 19:40[facility]22 [facility] TRANSTHORACIC ECHO (TTE) 2021-05-04 15:18:16 Austin Romero [facility] COMPLETE W/ CONTRAST Medical [facility] CBC WITH DIFF 2021-05-04 11:09:00 Austin Romero [facility] MAGNESIUM 2021-05-04 11:07:00 Austin Romero [facility] BASIC METABOLIC PANEL 2021-05-04 11:07:00 Austin Romero [facility] (NA, K, CL, CO2, GLUCOSE, Medica l Branch BUN, CREATININE, CA) TROPONIN I 2021-05-04 00:34:00 Austin Romero [facility] LIPID PANEL (70659)(TOTAL 2021-05-04 00:34:00 Austin Romero [facility] CHOLESTEROL, [facility] TRIGLYCERIDES, HDL) CT CHEST PULMONARY 2021-05-03 17:25:18 Demarco Herrera [facility] ANGIOGRAM Medical Branch XR CHEST 1 VW 2021-05-03 16:18:35 Javier Demarco [facility] COVID-19 (ID NOW RAPID 2021-05-03 16:18:00 Demarco Herrera [facility] TESTING) Medical Branch LAB ONLY COVID 2021-05-03 16:18:00 Javier Demarco [facility] INTERPRETATION [facility] TROPONIN I 2021-05-03 16:03:00 Javier Demarco [facility] HEPATIC FUNCTION PANEL 2021-05-03 16:03:00 Demarco Herrera [facility] ([id number]) (ALB,T.PRO,BILI Medical Branch T,BU/BC,ALT,AST,ALK PHOS) BASIC METABOLIC PANEL 2021-05-03 16:03:00 Demarco Herrera [facility] (NA, K, CL, CO2, GLUCOSE, Medica l Branch BUN, CREATININE, CA) LIPID PANEL ([id number])(TOTAL 2021-05-03 16:03:00 Ramu Taylor [facility] CHOLESTEROL, [facility] TRIGLYCERIDES, HDL) CBC WITH DIFF 2021-05-03 16:03:00 Demarco Herrera [facility] GLYCOSYLATED HEMOGLOBIN 2021-05-03 16:03:00 Ramu Taylor [facility] (A1C) [facility] PROTHROMBIN TIME / INR 2021-05-03 16:03:00 Javier Demarco [facility] ACTIVATED PARTIAL 2021-05-03 16:03:00 Demarco Herrera [facility] THRMPLAS TATUM [facility] N-TERMINAL PRO-BNP 2021-05-03 16:03:00 Demarco Herrera [facility] HB ECG ROUTINE & RHYTHM 2021-05-03 15:58:19 Demarco Herrera [facility] STRIP [facility] CONSENT/REFUSAL FOR 2021-05-03 15:44:24 Doctor Krystian, [facility] DIAGNOSIS AND TREATMENT [place] [facility] COVID-19 (ID NOW RAPID 2021-04-30 19:17:00 Maddy Gentile [facility] TESTING) [facility] IR BIOPSY MUSCLE 2021-04-10 19:39:16 Aimee gallagher [facility] PERCUTANEOUS WITH Chloe Bari [facility] ULTRASOUND CYTO ORGAN ASPIRATION-FNA 2021-04-10 19:23:00 Jesus Lind [facility] CT ABDOMEN PELVIS W 2021-03-15 18:08:35 Corey Meade [facility] CONTRAST [facility] CT THORAX W CONTRAST 2021-03-15 18:05:16 Corey Meade [facility] NOTICE OF PRIVACY 2021-03-15 17:17:11 Doctor Krystian, [facility] PRACTICES [place] [facility] [place] CONSENT/REFUSAL FOR 2021-03-15 17:16:56 Doctor Krystian, [facility] DIAGNOSIS AND TREATMENT [place] [facility] [place] ASSIGNMENT OF BENEFITS 2021-03-15 17:16:23 Doctor Unassigned, [facility] [place] [facility] EXTERNAL PROVIDER RECORDS 2021-03-08 05:01:00 Doctor Unassigned, [facility] [place] [facility] Plan of Care Planned Activity Planned Date Details Comments Source Future Scheduled ORT - XR HIP LEFT 2V Ordered: [employer] [facility] (CHARGE ONLY) [code = 02/05/2021 of Med icine 99447] Future Scheduled ORT - XR PELVIS AP Ordered: [employer] [facility] (CHARGE ONLY) [code = 02/05/2021 of Med icine 31183] Future Scheduled Screening for malignant [facility] Test neoplasm of colon of Medicin e (procedure) [code = 899874263] Future Scheduled TETANUS SHOT (ADULT) [employer] [code = TETANUS SHOT of Medi cine (ADULT)] Future Scheduled COVID-19 Vaccine (1) [employer] [facility] [code = COVID-19 Vaccine of Medicine (1)] Future Scheduled BMI FOLLOW UP PLAN [code Julio [employer] Test = BMI FOLLOW UP PLAN] of Med icine Future Scheduled Hepatitis C screening [facility] [employer] [facility] (procedure) [code = of Medic ine 367118304] Future Scheduled Human immunodeficiency [employer] virus screening of Medicine (procedure) [code = 857424751] Future Scheduled ZOSTER VACCINE (1 of 2) [facility] Test [code = ZOSTER VACCINE of Me dicine (1 of 2)] Future Scheduled FLU VACCINE > 6 MONTHS [employer] [facility] [code = FLU VACCINE > 6 of M edicine MONTHS] Future Scheduled MEDICARE IPPE (WELCOME [employer] TO MEDICARE) [code = of Medi cine MEDICARE IPPE (WELCOME TO MEDICARE)] Encounters Start End Encounter Admission Attending Care Care Encounter Source Date/Time Date/Time Type Type Clinicians Facility Department ID 2021-09-17 Emergency [facility] [id number] [facility]05 [facility] LAO, [facility] [id number] [place] 15:40:59 [facility] 2021-03-02 Outpatient SYSTEM, YANDEL HUMPHRIES [id number] 14:18:22 PROVIDER Domingo rowell 2022-01-25 2022-01-25 Laboratory Only, Adc Test [facility] 1.2.840. [id number] Univers 13:00:00 13:15:00 Only Dmitri Serrato [id number] [facility] [id number] [facility] [id number] [address] 2022-01-25 2022-01-25 Outpatient R [facility] [id number] [facility] 13:00:00 13:00:00 [id number] [facility] 2022-01-25 2022-01-25 Outpatient R AMA [facility] [id number] [facility] 13:00:00 13:00:00 DMITRI [facility] 2022-01-23 2022-01-23 Outpatient AMIRA [facility] [id number] [place] 00:00:00 00:00:00 JOANN 281 Method i 2022-01-21 2022-01-21 Outpatient FOSTER, [facility] [id number] [place] 00:00:00 00:00:00 ANDRE 963 Method i 2022-01-21 2022-01-21 Outpatient KRISTIN [facility] [id number] [place] 00:00:00 00:00:00 ANDRE 941 Method i 2021-12-31 2021-12-31 Outpatient [facility] [id number] [place] 00:00:00 00:00:00 544 Method i 2021-12-31 2021-12-31 Outpatient KRISTIN [facility] [id number] [place] 00:00:00 00:00:00 ANDRE 139 Method i 2021-12-31 2021-12-31 Outpatient [facility] [id number] [place] 00:00:00 00:00:00 573 Method i 2021-12-31 2021-12-31 Outpatient [facility] [id number] [place] 00:00:00 00:00:00 535 Method i 2021-08-28 2021-08-28 Outpatient Balaji PERDUE [facility] [id number] Univers 10:30:00 10:30:00 SYLVIA [id number] cece mckoy [facility] 2021-08-23 2021-08-23 Outpatient R MARCO [facility] [id number] Univers 08:00:00 08:00:00 GUILHERME [id number] ity [facility] 2021-06-22 2021-06-22 Outpatient R DESHAUNNADIASorin [facility] [id number] Univers 14:00:00 14:00:00 EDOUARD MEADE [id number] i ty of [facility] 2021-06-22 2021-06-22 Outpatient R DESHAUNNADIASorin [facility] [id number] Univers 14:00:00 14:00:00 EDOUARD MEADE i ty [facility] 2021-05-24 2021-05-24 Orders Doctor JUN [id number] Univers 00:00:00 00:00:00 Only Unassigned, TALHA [id number] ity of [place] [facility] [id number] Jese as [phone] [address] 2021-05-22 2021-05-22 Outpatient R [facility] [id number] Univers 13:00:00 13:00:00 [id number] ity [facility] 2021-05-22 2021-05-22 [facility] [id number] Univers 13:00:00 13:00:00 MADDY [facility] 2021-05-22 2021-05-22 Outpatient R BRIDGETT [facility] [id number] Univers 11:00:00 11:00:00 JOVANNI [facility] 2021-05-22 2021-05-22 Outpatient R BRIDGETT [facility] [id number] Univers 10:00:00 10:00:00 JOVANNI [facility] 2021-05-22 2021-05-22 [facility] [id number] Univers 10:00:00 10:00:00 JOVANNI [facility] 2021-05-10 2021-05-10 Orders Doctor JUN Jaquez.[id number] Univers 00:00:00 00:00:00 Only Unassigned, TALHA [id number] ity of [place] [facility] [id number] Jese as [id number] [address] 2021-05-09 2021-05-09 [facility] 1.2.840.114 [id number] Univers 10:25:57 23:59:00 Encounter Maddy Jarod Ma [id number] ity of [place] [id number] [facility] [id number] [facility] 804 Branch 2021-05-09 2021-05-09 [facility] [id number] Univers 11:00:00 11:00:00 MADDY [id number] ity [facility] 2021-05-09 2021-05-09 [facility] [id number] Univers 00:00:00 00:00:00 MADDY ity [facility] 2021-05-07 2021-05-07 [facility] [id number] [id number] Univers 10:45:56 23:59:00 Encounter Maddy Ma [id number] ity of [place] [id number] [place] [address] [id number] [facility] [address] [place] 2021-05-07 2021-05-07 [facility] 1.2.840.114 [id number] Univers 10:15:00 10:44:00 Encounter Maddy Ma [id number] ity of [place] [id number] [facility] [id number] [facility] 805 Branch 2021-05-07 2021-05-07 [facility] [id number] Univers 10:15:00 10:15:00 MADDY ity [facility] 2021-05-07 2021-05-07 Transition Linh Maciassorin 1.2.840.114 [id number] Univers 00:00:00 00:00:00 of Warren Cruz [id number] it y of [place] [id number] [facility] [id number] [facility] 403 Branch 2021-05-03 2021-05-04 Emergency Demarco Herrera [facility] 1.2.840. 114 [id number] Univers 10:50:00 12:33:00 Austin Romero [id number] ity of [place] [id number] [facility] [id number] [facility] 080 Branch 2021-05-03 2021-05-03 Orders Doctor JUN 1.2.840.114 [id number] Univers 00:00:00 00:00:00 Only Unassigned, TALHA [id number] ity of [place] [facility] [id number] Jese as [id number] [facility] 009 Branch 2021-05-01 2021-05-01 Office Jovi Varghese 1.2.840. 114 [id number] Univers 13:32:13 14:32:13 Visit Maddy Gentile [id number] ity of [facility] [id number] Jese as [id number] [facility] [address] [place] 2021-05-01 2021-05-01 Outpatient R [facility] [id number] Univers 14:00:00 14:00:00 [id number] ity [facility] 2021-05-01 2021-05-01 Outpatient R SEFERINO [facility] [id number] Univers 14:00:00 14:00:00 [facility] 2021-04-30 2021-04-30 Laboratory Only, Adc Test [facility] 1.2.840. 114 [id number] Univers 13:59:04 14:14:04 Only Maddy Gentile [id number] ity of [place] [id number] [facility] [id number] [facility] 353 Branch 2021-04-30 2021-04-30 Outpatient R [facility] [id number] Univers 14:00:00 14:00:00 ity [facility] 2021-04-30 2021-04-30 Outpatient R [facility] [id number] Univers 11:00:00 11:00:00 [id number] ity [facility] 2021-04-25 2021-04-25 Radhames Moura [facility] [id number] Univers 00:00:00 00:00:00 Management Roshan Robertson [facility] [id number] ity of Cancer [id number] [facility] Center - [id number] Med ical [facility] 188 Branch 2021-04-23 2021-04-23 Telephone NARESH Ramírez 1.2.840.114 [id number] Univers 00:00:00 00:00:00 Matthew HEALTH [id number] i ty of [facility] [id number] [facility] [id number] [facility] 188 Branch 2021-04-10 2021-04-10 [facility] 1.2.840.114 [id number] Univers 13:07:15 23:59:00 Encounter Matthew [facility] 350.1.13.10 ity of [facility] 4.2.7.2.686 [facility] AT [phone] Ne aurelianojen TATIANNACarol 803 [facility] 2021-04-10 2021-04-10 Outpatient Balaji RAMÍREZ [facility] [id number] Univers 14:00:00 14:00:00 [facility] [id number] [facility] 2021-04-10 Outpatient Balaji RAMÍREZ [facility] [id number] Univers 00:00:00 00:00:00 MATTHEW [facility] 2021-04-05 2021-04-05 [facility] [id number] Univers 00:00:00 00:00:00 Guilherme BARRONPEC 350.1.13.10 ity of IALTY 4.2.7.2.686 [facility] [id number] [facility] AND PIA [facility] [facility] 2021-04-04 2021-04-04 Outpatient Balaji RAMÍREZ [facility] [id number] Univers 16:15:00 16:15:00 [facility]THEW [id number] [facility] 2021-04-04 2021-04-04 Outpatient Balaji RAMÍREZ [facility] [id number] Univers 16:15:00 16:15:00 MATTHEW itcarol [facility] 2021-04-02 2021-04-02 [facility] [id number] Univers 00:00:00 00:00:00 Matthew Talmage 350.1.13.10 i ty [place] [id number] [address] 2021-04-02 2021-04-02 [facility] [id number] Univers 00:00:00 00:00:00 Matthew Talmage 350.1.13.10 i ty [place] [id number] [address] 2021-03-29 2021-03-29 [facility] [id number] Univers 12:31:22 23:59:00 Encounter Matthew SPECIALTY 350.1.13.10 [place] AT [id number] Ne aureliano[address] 2021-03-29 2021-03-29 [facility] [id number] Univers 14:30:00 14:30:00 [facility] [id number] [facility] 2021-03-29 2021-03-29 [facility] [id number] Univers 12:30:43 12:30:43 Encounter Matthew SPECIALTY 350.1.13.10 it[place] [id number] [address] 2021-03-29 2021-03-29 [facility] [id number] Univers 12:28:47 12:29:00 Encounter Matthew SPECIALTY 350.1.13.10 [place] [phone] Ne dic[address] 2021-03-29 2021-03-29 [facility] [id number] Univers 00:00:00 00:00:00 MATTHEW ity [facility] 2021-03-21 2021-03-21 Outpatient RHYS [facility] [id number] Univers 15:15:00 15:15:00 MATTHEW [id number] ity [facility] 2021-03-15 2021-03-15 [facility] [id number] Univers 12:29:31 23:59:00 Encounter Matthew Talmage 350.1.13.10 ity [facility] 4.2.7.2.686 [facility] [id number] [address] 2021-03-15 2021-03-15 [facility] [id number] Univers 15:30:00 15:30:00 MATTHEW [id number] ity [facility] 2021-03-15 2021-03-15 [facility] [id number] Univers 12:20:40 12:28:00 Encounter Matthew Talmage 350.1.13.10 ity [facility] 4.2.7.2.686 [facility] [id number] [address] 2021-03-15 2021-03-15 [facility] [id number] Univers 00:00:00 00:00:00 MATTHEW [facility] 2021-03-12 2021-03-12 Office [facility] [id number] Univers 13:46:55 14:01:55 Visit [facility] 350.1.13.10 it of Surgical 4.2.7.2.686 [facility] [id number] Ne dical es 198 [facility] 2021-03-12 2021-03-12 Outpatient Balaji RAMÍREZ [facility] [id number] -[id number] Univers 08:30:00 08:30:00 MATTHEW [id number] ity [facility] 2021-03-12 2021-03-12 [facility] [id number] Univers 08:30:00 08:30:00 [facility] 2021-03-08 2021-03-08 Orders Doctor JUN [id number] Univers 00:00:00 00:00:00 Only Unassigned, TALHA 350.1.13.10 ity of [place] [facility] 4.2.7.2.686 Jese as [id number] [facility] [address] 2021-03-01 2021-03-01 Outpatient R ANTONETTE, [facility] [id number] Univers 13:00:00 13:00:00 OTIS [id number] [facility] 2021-02-27 2021-02-27 Outpatient R MARIN [facility] [id number] Univers 15:00:00 15:00:00 CONRADO [facility] 2021-02-27 2021-02-27 Office Marin [facility] [id number] Univers 14:27:47 14:42:47 Visit Conrado [facility] 350.1.13.10 it y of Surgical 4.2.7.2.686 Jese as Specialti [id number] Ne dical es 198 [facility] 2021-02-05 2021-02-05 Office XANDER Honeycutt 1.2.840.114 [id number] [facility] 12:35:44 14:38:10 Visit Ramos AMBULATOR 350.1.13.21 College Y 0.2.7.2.686 of [id number] [facility] 600 e Results Test Description Test Test Results Result Source Time Comments Comments MR BRAIN W WO 2021-04 No acute intracranial University CONTRAST -23 findings or evidence of o f [place] 16:58:3 metastasis. A small Medic al 0 arachnoid cyst is seen in Branch the prepontine region. This is anincidental finding.HISTORY:lung ca mets TECHNIQUE: MRI of the brain was performed with and without IV contrast. COMPARISON: None. FINDINGS: No abnormal intracranial enhancement is seen. A small pre-pontine collection is seen in the prepontine region measuringapproximately 2.5 x 1.1 cm (8:11). This is consistent with an arachnoidcyst, as no enhancement diffusion restriction of gradient blooming is seen. The ventricles and sulci are within normal limits for patient's age. There is no midline shift. The basal cisterns are preserved. There is no diffusion restriction to suggest an acute infarct. No abnormal foci of gradient blooming is identified. Motion degradation is seen on the current exam. [facility], Radiant Results Inft User - 05/09/2021 11:59 AM CDT HISTORY:lung ca mets TECHNIQUE: MRI of the brain was performed with and without IV contrast. COMPARISON: None.FINDINGS:No abnormal intracranial enhancement is seen. A small pre-pontine collection is seen in the prepontine region measuringapproximately 2.5 x 1.1 cm (8:11). This is consistent with an arachnoidcyst, as no enhancement diffusion restriction of gradient blooming is seen.The ventricles and sulci are within normal limits for patient's age.There is no midline shift. The basal cisterns are preserved.There is no diffusion restriction to suggest an acute infarct.No abnormal foci of gradient blooming is identified.Motion degradation is seen on the current exam.IMPRESSIONNo acute intracranial findings or evidence of metastasis.A small arachnoid cyst is seen in the prepontine region. This is anincidental finding. NM BONE WHOLE 2020- 1. ?Increased uptake in University BODY -21 the left iliac bone of [place] 20:34:1 suggests osseous Medical 9 metastasis.This corresponds Branch to the lytic lesion seen on the CT from March 15, 2021. 2. ?Focal uptake seen in the right distal radius corresponds to the massseen on the MRI from March 2021, the biopsy-positive metastatic squamous cellcarcinoma. Preliminary Report Dictated by Resident: Niki Mcclure ?MD. Elma, have reviewed this study and agree with theabove report.EXAM DESCRIPTION: Whole Body Bone Scan INDICATION: Metastatic lung cancer COMPARISON: MR 03/29/2021, CT abdomen pelvis 03/15/2021 RADIOPHARMACEUTICAL: 25 mCi technetium 99m MDP administered intravenously. TECHNIQUE:Anterior and posterior whole body images were acquired 3 hours afterradiopharmaceutical administration. Additional anterior and posterior viewsof the pelvis and upper extremities were obtained. FINDINGS: Increased radiotracer uptake is noted in the left iliac bone and rightradius compatible with the known metastatic lesion seen on the comparisonCT and MR. No additional foci of metastatic disease are identified. Normal physiologic uptake is seen in the soft tissues, kidneys, and urinarybladder. [facility], Radiant Results Inft User - 05/07/2021 3:35 PM CDT EXAM DESCRIPTION: Whole Body Bone ScanINDICATION: Metastatic lung cancerCOMPARISON: MR 03/29/2021, CT abdomen pelvis 1RADIOPHARMACEUTICA L: 25 mCi technetium 99m MDP administered intravenously.TECHNIQUE:Ant erior and posterior whole body images were acquired 3 hours afterradiopharmaceutical administration. Additional anterior and posterior viewsof the pelvis and upper extremities were obtained.FINDINGS:Increased radiotracer uptake is noted in the left iliac bone and rightradius compatible with the known metastatic lesion seen on the comparisonCT and MR. No additional foci of metastatic disease are identified. Normal physiologic uptake is seen in the soft tissues, kidneys, and urinarybladder. IMPRESSION1. Increased uptake in the left iliac bone suggests osseous metastasis.This corresponds to the lytic lesion seen on the CT from March 15, 2021.2. Focal uptake seen in the right distal radius corresponds to the massseen on the MRI from March 2021, the biopsy-positive metastatic squamous cellcarcinoma.Preliminary Report Dictated by Resident: Niki Gonzalez MD., have reviewed this study and agree with theabove report. LAB ONLY COVID 2021-04 [facility] INTERPRETATION -18 InterpretationInterpretatio [facility] 15:18:4 n/Recommendations: Medica l 4 Molecular NAAT Tests for Branch Active Infection with the SARS-CoV-2 Virus: The patient has currently tested negative for the SARS-CoV-2 virus that causes COVID-19 illness. This most likely indicates that the patient does not have an active infection with the SARS-CoV-2 virus. However, infection is not completely ruled out as the false negative rate for molecular NAAT testing using a nasopharyngeal sample can be up to 30%, mostly dependent on the timing of sample collection in relation to illness onset and any deficiencies in sampling techniques. If the patient has symptoms concerning for COVID-19 illness, a repeat NAAT test (PCR, Rapid ID Now, etc.) should be performed, at which time the SARS-CoV-2 virus - if present - may have reached a detectable viral load (usually peaking by the end of the first week of symptoms). Tests for IgM and/or IgG Antibodies to the SARS-CoV-2 Virus: If the patient develops COVID-19 illness in the future, testing for IgM and IgG antibodies approximately 3 weeks after illness onset will likely indicate if the patient has produced antibodies to the SARS-CoV-2 virus. However, some patients may take longer to develop detectable antibodies, while some patients who were infected with SARS-CoV-2 may never develop antibodies. While antibodies to SARS-CoV-2 may provide some degree of immunity, at this time the strength and duration of the antibody response is unknown. Interpretation Result Comments:These interpretation comments are based upon all COVID-19 testing the patient has had at [facility], including molecular NAAT testing (more commonly known as PCR testing and Rapid ID Now testing) and antibody testing. It does not take into account any testing that a patient has had outside of the [facility] medical record. [facility] LABORATORY SERVICESCOVID [id number] Rapid ID NOW (no units) ? ? Date ? Value ? 05/03/2021 ? Not Detected ? ? ? 04/30/2021 ? Not Detected ? [facility] LABORATORY SERVICES CBC WITH DIFF 2021-05-04 12:44:08 Test Item Value Reference Range Interpretation Comme nts WBC (test code = 6690-2) See_Comment L [A utomated message] The system which ge nerated this result transmit bernard reference range: 4.20 - 1 0.70 10*3/?L. The reference r silva was not used to interpr et this result as normal/abnor mal. RBC (test code = 789-8) See_Comment [Au tomated message] The system which ge nerated this result transmit bernard reference range: 4.26 - 5 .52 10*6/?L. The reference r silva was not used to interpr et this result as normal/abnor mal. HGB (test code = 718-7) 13.6 g/dL 12.2-16.4 HCT (test code = 4544-3) 39.0 % 38.4-49.3 MCV (test code = 787-2) 91.5 fL 81.7-95.6 MCH (test code = 785-6) 31.9 pg 26.1-32.7 MCHC (test code = 786-4) 34.9 g/dL 31.2-35.0 RDW-SD (test code = 99945-3) 41.5 fL 38.5-51.6 RDW-CV (test code = 788-0) 12.6 % 12.1-15.4 PLT (test code = 777-3) See_Comment [Au tomated message] The system which ge nerated this result transmit bernard reference range: 150 - 32 8 10*3/?L. The reference range was not used to interpret th is result as normal/abnormal . MPV (test code = 87894-6) 9.2 fL 9.8-13.0 L NRBC/100 WBC (test code = See_Comment [ Automated message] The 1521084610) system which ge nerated this result transmit bernard reference range: 0.0 - 10 .0 /100 WBCs. The reference r silva was not used to interpr et this result as normal/abnor mal. NRBC x10^3 (test code = <0.01 See_Comment [Au tomated message] The 8400977221) system which ge nerated this result transmit bernard reference range: 10*3/?L. The reference range was not u sed to interpret this result as normal/abnormal . GRAN MAT (NEUT) % (test code 42.5 % = 770-8) IMM GRAN % (test code = 0.00 % 7762619005) LYMPH % (test code = 736-9) 35.4 % MONO % (test code = 5905-5) 18.0 % EOS % (test code = 713-8) 3.3 % BASO % (test code = 706-2) 0.8 % GRAN MAT x10^3(ANC) (test 1.56 10*3/uL 1.99-6.95 L code = 4050452697) IMM GRAN x10^3 (test code = <0.03 0.00-0.06 9027509161) LYMPH x10^3 (test code = 1.30 10*3/uL 1.09-3.23 731-0) MONO x10^3 (test code = 0.66 10*3/uL 0.36-1.02 742-7) EOS x10^3 (test code = 0.12 10*3/uL 0.06-0.53 711-2) BASO x10^3 (test code = 0.03 10*3/uL 0.01-0.09 704-7) Lab Interpretation (test Abnormal code = 43380-5) [facility] 12[facility]04:44 Test Item Value Reference Range Interpretation Comments MAGNESIUM (test code = 5389856404) 1.5 mg/dL 1.7-2.4 L Lab Interpretation (test code = Abnormal 33615-1) [facility] (NA, K, CL, CO2, GLUCOSE, BUN, CREATININE, CA)2021-05-04 12:04:29 Test Item Value Reference Range Interpretation Comments NA (test code = 137 mmol/L 135-145 9753065659) K (test code = 3.8 mmol/L 3.5-5.0 9497528487) CL (test code = 105 mmol/L 98-108 2031095509) CO2 TOTAL (test code = 27 mmol/L 23-31 4932677187) AGAP (test code = 2-16 5604105150) BUN (test code = 13 mg/dL 7-23 5001952450) GLUCOSE (test code = 101 mg/dL 70-110 6137540817) CREATININE (test code = 0.67 mg/dL 0.60-1.25 6572950772) CALCIUM (test code = 10.7 mg/dL 8.6-10.6 H 4068254276) eGFR (test code = mL/min/1.73m2 5173121788) VICENTE (test code = VICENTE) Association of Glomerular Filtration Rate (GFR) and Staging of Kidney Disease* + --+ --+ ------+| GFR (mL/min/1.73 m2) ?| With Kidney Damage ?| ?Without Kidney Damage+ --------+ --------+ +| ?>90 ?| ?Stage one ?| ? Normal ?+ ---+ ---+ -------+| ?60-89 ?| ?Stage two ?| ? Decreased GFR ? + --+ --+ ------+| ?30-59 ?| ?Stage three ?| ? Stage three ? + --+ --+ ------+| ?15-29 ?| ?Stage four ? | ? Stage four ?+ ---+ ---+ -------+| ?<15 (or dialysis) ? ?| ?Stage five ? | ? Stage five ?+ ---+ ---+ -------+ *Each stage assumes the associated GFR level has been in effect for at least three months. ?Stages 1 to 5, with or without kidney disease, indicate chronic kidney disease. Notes: Determination of stages one and two (with eGFR >59mL/min/1.73 m2) requires estimation of kidney damage for at least three months as defined by structural or functional abnormalities of the kidney, manifested by either:Pathological abnormalities or Markers of kidney damage (including abnormalities in the composition of the blood or urine or abnormalities in imaging tests). Lab Interpretation Abnormal (test code = 10743-5) [facility] [id number] 01:31:30 Test Item Value Reference Range Interpretation Comments TROPONIN I (test 0.009 ng/mL See_Comment [Automated code = 1827666349) message] The system which generated this result transmitted reference range : <=0.034. The reference range was not used to interpret this result as normal/abnormal . VICENTE (test code = Equal or Less than VICENTE) 0.034 ng/ml---Normal ?Note: Cardiac troponin begins to rise 3-4 hours after the onset of ischemia. Repeat in 4-6 hours if the sample was drawn within 3-4 hours of the onset of the symptom and found normal. Between 0.035 and 0.120 ng/mL--- Borderline. Questionable myocardial injury or necrosis ? ?Note: Serial measurement may be necessary to confirm or exclude the diagnosis of myocardial injury or necrosis; Clinical correlation (symptoms, EKGs, imaging studies, and others) required; Repeat in 4-6 hours if clinically indicated. ? Equal or Higher than 0.121 ng/mL---Abnormal. Myocardial Injury or Necrosis Likely ? Biotin has been reported to cause a negative bias, interpret results relative to patient's use of biotin. ? Lab Interpretation Normal (test code = 63339-5) [facility] (27557)(TOTAL CHOLESTEROL, TRIGLYCERIDES, HDL)2021-05-04 01:19:31 Test Item Value Reference Range Interpretation Comments CHOL (test code = 147 mg/dL 120-200 0806185757) HDL (test code = 37 mg/dL >40 L 6481074214) HDLC RATIO (test code = See_Comment [Au tomated message] 6526236238) The system [employer] generated this result transmit bernard reference range : <=5.0. The refe rence range was not u sed to interpret th is result as normal/abnormal . TRIG (test code = 140 mg/dL 30-170 5134654256) LDL CHOL (test code = 82 mg/dL See_Comment [Auto mated message] 14596-1) The system [employer] generated this result transmit bernard reference range : <=160. The refe rence range was not u sed to interpret th is result as normal/abnormal . VLDL (test code = 28 mg/dL 5-60 6505790440) Lab Interpretation (test Abnormal code = 80938-1) [facility]YCOSYL[facility] HEMOGLOBIN (A1C)2021-05-03 23:30:45 Test Item Value Reference Range Interpretation Comments HGB A1C (test code = 4.9 % 4.0-5.7 4548-4) VICENTE (test code = VICENTE) Reference RangesNormal: <5.7%Prediabetes: 5.7 - 6.4%Diabetes: > 6.5% Lab Interpretation (test Normal code = 05603-5) [facility] (10480)(TOTAL CHOLESTEROL, TRIGLYCERIDES, HDL)2021-05-03 23:08:32 Test Item Value Reference Range Interpretation Comments CHOL (test code = 174 mg/dL 120-200 2793176838) HDL (test code = 42 mg/dL >40 3983533866) HDLC RATIO (test code = See_Comment [Au tomated message] 6433576067) The system [employer] generated this result transmit bernard reference range : <=5.0. The refe rence range was not u sed to interpret th is result as normal/abnormal . TRIG (test code = 154 mg/dL 30-170 8507350337) LDL CHOL (test code = 101 mg/dL See_Comment [Auto mated message] 82385-2) The system [employer] generated this result transmit bernard reference range : <=160. The refe rence range was not u sed to interpret th is result as normal/abnormal . VLDL (test code = 31 mg/dL 5-60 7368012505) Lab Interpretation (test Normal code = 89496-7) [facility] (ID NOW RAPID TESTING)2021-05-03 17:45:21 Test Item Value Reference Range Interpretation Comments SARS-CoV-2 Rapid ID NOW Not Detected Not Detected (test code = 19398-3) VICENTE (test code = VICENTE) ID NOW COVID-19 Assay is an isothermal nucleic acid amplification test intended for the qualitative detection of nucleic acid from SARS-CoV-2 viral RNA in nasopharyngeal (PHARMACIST IN CHARGE OWNER) specimens. It is used under Emergency Use Authorization (EUA) by FDA. The limit of detection (LOD) of the assay is 125 Genome Equivalents/mL. A positive result is indicative of the presence of SARS-CoV-2 RNA. ?Clinical correlation with patient history and other diagnostic information is necessary to determine patient infection status. A negative (Not Detected) result does not preclude SARS-CoV-2 infection. In patients with clinical symptoms and other tests that are consistent with SARS-CoV-2 infection, negative results should be treated as presumptive negative and a new specimen should be tested with alternative PCR molecular test. Invalid: Please collect a new specimen for repeat patient testing if clinically indicated. Lab Interpretation Normal (test code = 98777-8) [facility] [id number] 17:36:29HISTORY: Rule out out P.E. TECHNIQUE: Contrast-enhanced 64-mutidetector CT scan of the chest wascompleted with intravenous injection of ?non ionic contrast medium.Subsequently numerous sagittal, coronal and MIP reformations weregenerated. FINDINGS: Comparison made with 03/15/2021 CT chest study. Visuali zed portions of the thyroid gland appear unremarkable. Trachea andcentral bronchial airways appear normal. Air is detected throughoutesophagus which could be a sign of gastroesophageal reflux. No acutepulmonary thromboembolism detected. Diffuse triple vessel coronaryatherosclerosis noted including frances cifications seen in the left maincoronary artery. Focal saccular aneurysm, diffuse moderately enlarged hilar/mediastinallymph nodes, infiltrating tumor in the left suprahilar region noted. Thereis someinterval improvement in the infiltrating tumor of the leftsuprahilar region. No other significant interval change is detected. Numerous scattered bilateral pulmonary nodules again noted, largest is inthe right lower lung near the diaphragm. No pleural effusion or pericardialeffusion. Visualized upper abdominal organs show diffuse hepatic steatosis. Normaladrenal glands are seen.Unchanged lesion in the right humerus again noted. CONCLUSIONS:1. No acute pulmonary thromboembolism.2. Slight interval improvement suspected in the infiltrating leftsuprahilar tumor 03/15/2021 study.3. No significant interval change in enlarged hilar/mediastinal lymph nodesand bilateral pulmonary nodules.4. Triple vessel coronary atherosclerosis including calcification noted inleft main coronary artery. [facility], Radiant Results Inft User - 05/03/2021 12:37 PM CDT HISTORY: Rule out out P.E.TECHNIQUE: Contrast-enhanced 64-mutidetector CT scan of the chest wascompleted with intravenous injection of non ionic contrast medium.Subsequently numerous sagittal, coronaland MIP reformations weregenerated.FINDINGS: Comparison made with 03/15/2021 CT chest study.Visualized portions of the thyroid gland appear unremarkable. Trachea andcentral bronchial airways appear normal. Air is detected throughoutesophagus which could be a sign of gastroesophageal reflux.No acute pulmonary thromboembolism detected. Diffuse triple vessel coronaryatherosclerosis noted including calcifications seen in the left maincoronary artery.Focal saccular aneurysm, diffuse moderately enlarged hil ar/mediastinallymph nodes, infiltrating tumor in the left suprahilar region noted. Thereis some interval improvement in the infiltrating tumor of the leftsuprahilar region. No other significant interval change is detected.Numerous scattered bilateral pulmonary nodules again noted, largest is inthe right lower lung near the diaphragm. No pleural effusion or pericardialeffusion.Visualized upper abdominal organs show diffuse hepatic steatosis. Normaladrenal glands are seen.Unchanged lesion in the righthumerus again noted.CONCLUSIONS:1. No acute pulmonary thromboembolism.2. Slight interval improvementsuspected in the infiltrating leftsuprahilar tumor 03/15/2021 study.3. No significant interval changein enlarged hilar/mediastinal lymph nodesand bilateral pulmonary nodules.4. Triple vessel coronary atherosclerosis including calcification noted inleft main coronary artery.[facility] NorthwestTrop[facility] I 2021-05-03 16:38:15 Test Item Value Reference Range Interpretation Comments TROPONIN I (test 0.012 ng/mL See_Comment [Automated code = [id number]) message] The system which generated this result transmitted reference range : <=0.034. The reference range was not used to interpret this result as normal/abnormal . VICENTE (test code = Equal or Less than VICENTE) 0.034 ng/ml---Normal ?Note: Cardiac troponin begins to rise 3-4 hours after the onset of ischemia. Repeat in 4-6 hours if the sample was drawn within 3-4 hours of the onset of the symptom and found normal. Between 0.035 and 0.120 ng/mL--- Borderline. Questionable myocardial injury or necrosis ? ?Note: Serial measurement may be necessary to confirm or exclude the diagnosis of myocardial injury or necrosis; Clinical correlation (symptoms, EKGs, imaging studies, and others) required; Repeat in 4-6 hours if clinically indicated. ? Equal or Higher than 0.121 ng/mL---Abnormal. Myocardial Injury or Necrosis Likely ? Biotin has been reported to cause a negative bias, interpret results relative to patient's use of biotin. ? Lab Interpretation Normal (test code = 25527-4) [id number] 16:34:52 Test Item Value Reference Range Interpretation Comments NT-proBNP (test code 226 pg/mL See_Comment H [Autom ated = [id number]) message] The system which generated this result transmitted reference range : <=125. The reference range was not used to interpret this result as normal/abnormal . VICENTE (test code = VICENTE) Biotin has been reported to cause a negative bias, interpret results relative to patient's use of biotin. Lab Interpretation Abnormal (test code = 61781-4) [facility] (NA, K, CL, CO2, GLUCOSE, BUN, CREATININE, CA)2021-05-03 16:28:54 Test Item Value Reference Range Interpretation Comments NA (test code = 137 mmol/L 135-145 4368842490) K (test code = 3.7 mmol/L 3.5-5.0 8606572931) CL (test code = 104 mmol/L 98-108 1238435648) CO2 TOTAL (test code = 23 mmol/L 23-31 1264781951) AGAP (test code = 2-16 7209352571) BUN (test code = 13 mg/dL 7-23 8948371137) GLUCOSE (test code = 123 mg/dL 70-110 H 3211613755) CREATININE (test code = 0.82 mg/dL 0.60-1.25 1719595594) CALCIUM (test code = 12.0 mg/dL 8.6-10.6 H 7885496222) eGFR (test code = mL/min/1.73m2 0167145375) VICENTE (test code = VICENTE) Association of Glomerular Filtration Rate (GFR) and Staging of Kidney Disease* + --+ --+ ------+| GFR (mL/min/1.73 m2) ?| With Kidney Damage ?| ?Without Kidney Damage+ --------+ --------+ +| ?>90 ?| ?Stage one ?| ? Normal ?+ ---+ ---+ -------+| ?60-89 ?| ?Stage two ?| ? Decreased GFR ? + --+ --+ ------+| ?30-59 ?| ?Stage three ?| ? Stage three ? + --+ --+ ------+| ?15-29 ?| ?Stage four ? | ? Stage four ?+ ---+ ---+ -------+| ?<15 (or dialysis) ? ?| ?Stage five ? | ? Stage five ?+ ---+ ---+ -------+ *Each stage assumes the associated GFR level has been in effect for at least three months. ?Stages 1 to 5, with or without kidney disease, indicate chronic kidney disease. Notes: Determination of stages one and two (with eGFR >59mL/min/1.73 m2) requires estimation of kidney damage for at least three months as defined by structural or functional abnormalities of the kidney, manifested by either:Pathological abnormalities or Markers of kidney damage (including abnormalities in the composition of the blood or urine or abnormalities in imaging tests). Lab Interpretation Abnormal (test code = 11488-1) [facility] (ALB, T.PRO, BILI T, BU/BC, ALT, AST, ALK PHOS)2021-05-03 16:28:14 Test Item Value Reference Range Interpretation Comments TOTAL BILI (test code = 5547037952) 1.2 mg/dL 0.1-1.1 H BILI UNCON (test code = 1435901431) 1.0 mg/dL 0.1-1.1 BILI CONJ (test code = 2823942439) 0.0 mg/dL 0.0-0.3 T PROTEIN (test code = 7813845608) 8.2 g/dL 6.3-8.2 ALBUMIN (test code = 3844522389) 4.6 g/dL 3.5-5.0 ALK PHOS (test code = 8490840789) 93 U/L 34-122 ALTv (test code = 1742-6) 41 U/L 5-50 AST(SGOT) (test code = 8657107757) 44 U/L 13-40 H Lab Interpretation (test code = Abnormal 04608-9) [facility]2021-[facility] 16:27:33 Test Item Value Reference Range Interpretation Comments APTT Patient (test See_Comment [Automat ed code = 3173-2) message] The system which generated this result transmitted reference range : 23 - 38 Seconds . The reference range was not used to interpr et this result as normal/abnormal . VICENTE (test code = VICENTE) The [facility] patient population mean normal value for aPTT is 30 seconds. Lab Interpretation Normal (test code = 38250-3) [facility]thrombin Time (PT) / [id number] 16:25:10 Test Item Value Reference Range Interpretation Comments PROTIME PATIENT (test See_Comment [Auto mated message] code = 5964-2) The system wh ich generated this result transmitted ref erence range: 12.0 - 1 4.7 Seconds. The re ference range was not u sed to interpret this result as normal/abnor mal. INR (test code = 6301-6) Nor mal INR <1.1; Warfarin Therap eutic range 2.0 to 3. 0 or 2.5 to 3.5, dep ending upon the indica tions. Lab Interpretation (test Normal code = 91791-3) [facility] 1 [id number] 16:19:49HISTORY: Chest pain. TECHNIQUE: Portable AP erect view of the chest is obtained. No prior cheststudyavailable for comparison. FINDINGS: No acute pneumonia. No pneumothorax or pleural effusion orpulmonary congestion detected. Cardiac size is within normal limits. Smallcalcified granulomas noted in left upper lung and right lower lung.Metallic anchors are seen in the head of the right humerus. CONCLUSIONS: No signs of acute cardiopulmonary disease.[facility], Radiant Results Inft User - 05/03/2021 11:20 AMCDT HISTORY: Chest pain.TECHNIQUE: Portable AP erect view of the chest is obtained. No prior cheststudy available for comparison.FINDINGS: No acute pneumonia. No pneumothorax or pleural effusion orpulmonary congestion detected. Cardiac size is within normal limits. Smallcalcified granulomas noted in left upper lung and right lower lung.Metallic anchors are seen in the head of the right humerus.CONCLUSIONS: No signs of acute cardiopulmonary disease. [facility] with [id number] 16:11:47 Test Item Value Reference Range Interpretation Comments WBC (test code = See_Comment [Automated 4090-2) message] The sy stem which generated this result transmitted reference range : 4.20 - 10.70 10*3/?L. The reference range was not used to interpret this result as normal/abnormal . RBC (test code = See_Comment [Automated 269-8) message] The sy stem which generated this result transmitted reference range : 4.26 - 5.52 10*6/?L. The reference range was not used to interpret this result as normal/abnormal . HGB (test code = 15.2 g/dL 12.2-16.4 718-7) HCT (test code = 42.5 % 38.4-49.3 4544-3) MCV (test code = 89.3 fL 81.7-95.6 787-2) MCH (test code = 31.9 pg 26.1-32.7 785-6) MCHC (test code = 35.8 g/dL 31.2-35.0 H 786-4) RDW-SD (test code = 40.7 fL 38.5-51.6 15929-1) RDW-CV (test code = 12.3 % 12.1-15.4 788-0) PLT (test code = See_Comment [Automated 777-3) message] The sy stem which generated this result transmitted reference range : 150 - 328 10*3/ ?L. The reference r silva was not used to interpret this result as normal/abnormal . MPV (test code = 9.1 fL 9.8-13.0 L 37798-9) NRBC/100 WBC (test See_Comment [Automat ed code = 5685089952) message] The system which generated this result transmitted reference range : 0.0 - 10.0 /100 WBCs. The refer ence range was not u sed to interpret th is result as normal/abnormal . NRBC x10^3 (test code <0.01 See_Comment [Auto mated = 7492033835) message] The s ystem which generated this result transmitted reference range : 10*3/?L. The reference range was not used to interpret this result as normal/abnormal . GRAN MAT (NEUT) % 61.5 % (test code = 770-8) IMM GRAN % (test code 0.20 % = 6935691652) LYMPH % (test code = 18.0 % 736-9) MONO % (test code = 18.0 % 5905-5) EOS % (test code = 1.7 % 713-8) BASO % (test code = 0.6 % 706-2) GRAN MAT x10^3(ANC) 2.96 10*3/uL 1.99-6.95 (test code = 4240376340) IMM GRAN x10^3 (test <0.03 0.00-0.06 code = 7344187639) LYMPH x10^3 (test code 0.87 10*3/uL 1.09-3.23 L = 731-0) MONO x10^3 (test code 0.87 10*3/uL 0.36-1.02 = 742-7) EOS x10^3 (test code = 0.08 10*3/uL 0.06-0.53 711-2) BASO x10^3 (test code 0.03 10*3/uL 0.01-0.09 = 704-7) Lab Interpretation Abnormal (test code = 18405-7) [facility] (ID NOW RAPID TESTING)2021-04-30 19:37:46 Test Item Value Reference Range Interpretation Comments SARS-CoV-2 Rapid ID NOW Not Detected Not Detected (test code = 86821-0) VICENTE (test code = VICENTE) ID NOW COVID-19 Assay is an isothermal nucleic acid amplification test intended for the qualitative detection of nucleic acid from SARS-CoV-2 viral RNA in nasopharyngeal (PHARMACIST IN CHARGE OWNER) specimens. It is used under Emergency Use Authorization (EUA) by FDA. The limit of detection (LOD) of the assay is 125 Genome Equivalents/mL. A positive result is indicative of the presence of SARS-CoV-2 RNA. ?Clinical correlation with patient history and other diagnostic information is necessary to determine patient infection status. A negative (Not Detected) result does not preclude SARS-CoV-2 infection. In patients with clinical symptoms and other tests that are consistent with SARS-CoV-2 infection, negative results should be treated as presumptive negative and a new specimen should be tested with alternative PCR molecular test. Invalid: Please collect a new specimen for repeat patient testing if clinically indicated. Lab Interpretation Normal (test code = 10242-8) [facility] NorthwestCY[facility] ORGAN [id number] 15:11:44 Test Item Value Reference Range Interpretation Comments Case Report (test FNA Cytology ? code = 2480834442) ?Case: [id number] ?Authorizing Provider: ?Jesus Lind MD ? ? Collected: ? 04/10/2021 1423 ?Ordering Location: ? ? [facility] ? ?Received: ?04/10/2021 1445 ? [place] [facility] ? Radiology ?Specimen: ? ?SOFT TISSUE, OTHER, FOREARM, RIGHT; ULTRASOUND (US) IMAGE-GUIDED FINE NEEDLE ? ASPIRATION ? Final Diagnosis (test r8qfnEDoKVYlp4inRWEdwMFu code = 2229351178) ZzEwMzNcZnRuYmpcdWMxIHtc cnRmMVxlcGljOTQwMlxhbnNp JYVkrLJuI8BlkodbYZihXM1y DK3zzLingMRbzHUdIZRzCmLe h4ueh587xTSgl1iyURDCmnvb bHf7tXjnH19ir4A4ObbrY54e jVZsVBW1EIXcBQOnhIGqVPRy CGX3VJCkyMNoT6doNAUsGW4n bffyUJjhXOckFCSywQO1BCFf fGNpD3TbTZInVZnjOPWvnkp5 YkNgVb5svSQktFxfFUsfPMYl XHBsYWluXGJcZnMyMCBBLiAg M59VMTZIVNAPQMWpFR6RBARY ZBUTO3ESMIFNAHDAS5xAVaAQ BFLCASMUDQ5OAArVFqarQF2X B0KaC4XTHTQLOWOGRmEzRhSG NNrMIKUMWWbFMQSFH30oFZ5V IENPUkUgQklPUFNZXHBhciAg MWEcDG6hD5RCGG4JNUCyL5DP MANUTTNJOI6XYYMeFL7JFFGQ FONSOZSqRToQUOEpP69XPHMP KZsyLRHseq51SUD4BsSxx2X5 LEKdDiOyYTLlAF1nvKdrFXRo SH1jAHDvO9gcjQ9cvxy2YeLg EDNeIcO2PSGlakQ0Zkk1LQHg SOioz8baz2KxE8IddHIsvGc6 d9exMGInHxE2jLGyNFkzO2jf ehFesYEeHOSqSRu0yMfsYwTq QXYwk1edapPxObLvZPUhPMRs RTFuqPormii7yM88CSVegK0j lUApPHrydaCcFdJ5AGkyPXVe UhL8BVQidBFqPTVoQ9vkCKGa HKyqPOQwTPbfoZMmKPS4eDoy o2Q5wIZwnDWodPavLsOhXcZw QLZOr8TtDPz6gDaeJ6LoQSDi FfC1xGTxTPRnFOlyXIUaGZRl wcO1sC62NVyqvxF1cCEli6Jm g38xd703wG1dlSOzCWB4MEYj KUYjiPZiLURaNAQ0XMXdjBEo L8lpZBLpGD7wcqdcYBwuIUzm PGQpsSY1AUGbbEQbD6GvJDSs UEryPJRxyyw2FqSgDq7oqIQh nDceDJyrs4ycw3qicVObWtz6 OZUfGiVyQdrlKWmku7Vri7xd ZQKitd6jLNW7eFOtqNrrc9M9 bGUxXGRudGJsbnNiZGJcZmV0 YNtxMI0suo20DMSqRBZ3nn8q kTTrsHduvzJtmGZtSNlzY3Hb IWWqz020NZJtQ6CeCMLde9H1 drJhHiBqQRSadIE5ggV5XYTt YEn7zYVxkmF1yvWhmVHkQ3xa vQ1eHEExQU4dutrvo5anYNqf VVlhUSSjtGS3tzK3ZGJqaOBh X1JhmZ3mIJBxETlkHUSfgze1 VuScUs1gxOCxhVstMJsdNsid YWdlXHBnbmNvbnRccGduZGVj XHBsYWluXHBsYWluXGYwXGZz LeYqyGltiOhwmC2mPyDnKsNg SXgmWW9yOUCvH0gpvRYrWGAz SOUgK5pkOgZjiL9niRyhEKfq ZjJcZnMyMFxwYXIgSSBoYXZl IWPjncRxscRznLnkmzB1gVL7 PBPzZQzmVDIgVESopLVxhp1s gRzeYDVmQP8zIRHnegByDVsc fGqoHSlrREV6UODftTDxoLYg bWFkZSBieSByZXNpZGVudHMs KXKulBpoh3Hxr1KmiSS2mI9t q5aha2BnYFTafJO7KM49dzW3 zL0aWZMxBY8qWTBhHC4jiSMy tNMpLVTxq70ivAbxudMaEJSf cnQuXHBsYWluXGYyXGZzMjhc bGFuZzEwMzNcaGljaFxmMlxk AaRoCILpDWnpI8rzCkClFaJa PSitSEV4oE== Final Diagnosis y1kwhIAlANUojHQ6LATeQATa Comment (test code = c5bdg5FvjXLdtLTdXXusiHPa 1497165746) jxZbzy08sSA1mT26MP9yRGPn SiA8HCRhuoH4Mcl4MWKtMCBa rJAsU233k0iru9uzomFpkYR7 dIeaNKRoklbkPeR7UFfkHGVu xrscHJy7PLvvTTAhrJD8BYAq lCNuM7JpVONpLJ7gryf9HSX3 HZfjAIZzVdD4TOBuvLGgJEFi fSiwQJsca891PFX1JkEeUUSy kbWsy3fuWxQwh9zubNg9YTrc bGFpblxmczIwIFRoZSBzbWVh ohVjw3lzlyKfLBbjK72ahnEl V8OsfBJdnR3fnCeiIHNmR4uu om70ioPdl0CnGBJ8seOuuuBn oiCbqw6ehTFmVWJIfHRryGEx mCvwJR23OBRgdZpiBYLike0s j7kbXSEmMZSrFMDmsE8ugUPo Q6GjyUSsKJFxAFLmnF84UHFm rXDzq7OyRGXyIiLvjkYkdCqm uScnwhvew0z0dHWyxONybPdz a23xh3CeUHQbger7DVNwe22l w9k4bYAck14eOVNbnZ6kmBch OtXcuwJpoUPjSTu1fCPjAWOu bmxhcmdlZCwgaHlwZXJjaHJv fQP6cJSpsfHzlFSiEiVLeJLd E1QpuMPbdZ4bnvLpheYgU83f JMVqzH3nq0tls5hrw9KcrQUk gKooWJ30DOFvcKxtTQwkPDSd VXY8uvJ4jTAhIDDtg04tnHR8 XTDmmaArrn2ukCQtUHUkacje RHWcq1ilEGIxzFQgsCJhADmm RCJnqXhjf1waUhOdrH93tw3r wZHftdMgu8HiDVCwZDVoj5Oq OUPkl16uSvhsO1ifGLIdt8f2 fDP5kUGlUq1acK06yO5fSDBs f0XgyNJ3MGZhxlszWVYcZKRN QAQvMsZ1HASou7a4iUMbZPYv uqNfKZ8lzTKuBiHQe8MzsCd1 SS0oSRVwusywWOKmNH9qL1ib NzogTmVnYXRpdmUuIFxwYXIg ICAtIENLIDIwOiBOZWdhdGl2 FR5eZIXfjaCyCM5iDHOMEJG9 XZ3nL4G6kMMdDqAedWYmWYOr bvFSuEVxYKTeHAE9jHPrSAE0 cMPzfeXduDibCEVpr9VnOUGv KOzqs8Fwqq6wxVOjCIZqlepv hsVnWjUbt2ByePb5CGLlzpIf jnRsJXKwjjZyU43tnGMxxMWo y8PjWOCikEiuWqRmbS9jfO7q lSUgUXMgehTDhAUhxO9zyPec sG0ljFKuzIKculBmwZ4msR9f sVlzcZ7bdFXqbWHxnUWfji5n rFawDXncAIKaorPeb5CzuzWq s9r3jWJeIPYoh3ZmrKgsTAGz lPCgi3EkFODzxFdhM9RnZ3re o15qKxPKrAwdgYJbhNYjauOh msDcvI0it5pzR3LuMGVfzcRm rEA6zC7gQZhiLYD0R9fht1Pl UOZ2mmXoHMOmkh0elcOmhIjp NIIcqVQot1Mdj5LdY8ntQsQp cGFyXHBhclxmMCBUaGlzIGNh e4FhbOGiFBXfIM8oozR6gGD9 THVaKancJEJfJkQ0C2dgqObs e4mvKXWlriJ3izOri9o7uME5 yHOrOKuhD24xc4bfZLOkqlkj gYO4FrbalJ05qUEtHNSzhr4= Clinical Information Right forearm mass, (test code = involving distal radius [id number]) Gross Description y7ubtSLmQYHopBIJLJXgSxdd (test code = suWkOKMsfWXvW1KgulryJNso 8740370825) RB9rJR4vyGkxlBLdxFWkNI0J XGRlZmYxXHBhcGVydzEyMjQw NHTmqAUkfQT0RTEpTI7jidhb KFixDCfiTEMbjnX6GGIbpKDo Q5MzXAIhKG8dfcqxQKB0XMko rL6eobEUDdyyUr7gmPRvhWci ZjFcZmNoYXJzZXQwXGZuaWwg SCYaVJx6pE4FPrucRVR3EDKH FgvfMJUtDO6Vu4nbQJDilVJg UNY1LGhtnPQtUSXcIOKmLGy1 JAVfTGkohGHzOC5wnYrzZsku dZxei1GbuVBdRArkTBXcUXVd OWglLDVeJD9MGzNfKTi5QtD6 LgEwIHs3JLn2LX3OGzMoEMDq EIF7QSZ1IaEsGVj9SChnQO5G YXWoEiJ9CFv9EqBlTKK3ZDBo KZh3AHOaTJieSLQoyQPgSHei IbIjUBKtHFsgdZNvPY3lyYak bGFpblxmczIwXHBhciANClxw bGFpblxlcGljTmVzdERvYzEg DQpcbHRycGFyXGxpbjBccmlu MCANClxsdHJjaFxmczIwIEEx EmTwM15ADWGPSAPLJPDcRM4S BENITOAIN8EZPYJNYBKDS4p0 MAABPCNZU73LZqLaILWYGMJG TUFHRSBHVUlERUQgRklORSBO RUVETEUgQVNQSVJBVElPTlxw YXIgDQpSZWNlaXZlZCBmcmVz qTFpqmWoHiRhM4FslxDvTjNq RG4wnBljw9HbIX9ztXKtmFEz VT1zuDUncpUgAGP7FCRgyFwo RRPfs33oFRFnsgDyHLmyMERn z1IfDCSlHWmpOPGzKOrIxjTf YXJlZCAyIHNsaWRlcyAoMSBS a39qpc38f0h4HLJ6CMlhQTSh k74cDENfofnaWK9oOEOaKOOg HI7jZ88xSV25LRB6AOhmUEKq r96rBCXjjdgkJIYcjxCUBepl XLStXDkNWv4iAEOZXbJlIYaT J8PGYVFISKlRBevmMv8ZWFZR GPYHRCrLIcPKYPPSEIJSIL5W VTrVEixaLM0CT8WcP8IHGXBR KtVXC0FGUZSNS0OFVRfcLWSb FWnoKUC9JLoztLelADOtAQud OJ51BAVwr7zgmCGcXoKiXBJb S22lNSMtqD2je9wxayPiTH5f wX0rBUjyNIkappk2yZAqjn5w PKKySMV6bzVvYgkpP22lxHug H1PnWJruLORpyg6woFxzXK7l IDUvMjUvMjAyMSAxNDMwIGhv uHKdEjMhQ7Jip1NePKIxL1Ji lMKnp17mmOWvNv7nuHYrDCG1 ATscC9yikghnQF2utL1hwf6b wBXnPE9EJYCnaPNdXXHpNvBf bGlkZXMgKDIgSCZFIGFuZCA0 ZCczmGNyf7F8HCzlPQMdXXBE IDcsIENLIDIwLCBUVEYtMSwg mZYqCMpolRUiOM1RWWSlzxEJ TdIbStBjX29KJQTBOQVGKTKu UO3PXWGPWRNMU4GLDDXUKQZC O3f6UOAXSYBKS46LPvPeVOEK JPSAJOYDQVECFZeZZTR3ZXBU UkUgQklPUFNZXHBhciANCjIg BXliV6N2D6UmErYsA45oatPk BUD9sHe7GVFnBZGaYTDdq3Rt ZTPbe5GhbKKjLKGllljimwho pU1hcWXwA1IqKEDfv06vXP3n IHRvIDAuNiBjbSBwbGFjZWQg kS0hJc8jnUXmaT7ko82jRZ0a EG2pEUOjOGK1DcZkwJ47eeEc YNVDqi4jbsBvHGDmolammBss sxSxQUQzg5GhWWFwSefuAxUt iRBetATUk1hjw9IrUbsjEYLh DQpQcmVwYXJlZCAyIHNsaWRl cyAoMiBIJkUpXHBhciANClxw BZFvKGvDCA6vMTOUCdFhBAbF T0JVLDMXNWnXYjfwQk5AKVHP OYEURZrHSmFMEKIXPXAJIE7A JTaDFhsbYY1AE3MqO2KBOQYA IEZJTkUgTkVFRExFIEFTUElS SZZPQ915UINLJFqsIstOY4fp dOPbDW9NLjSyEOlxXJZervSg URNgHCfrXV69RZIqKZHbIARb mrPcd5GnSRczhiTqzjM8VrQ0 GaItQrSlAKXtDXSjf0Rqdzyn NR9zNSAcHJPomI3qLCfhhG2u JEblqZi3DVAmKPy3HXfjUO4b VTU8Ho7jnSKcVSReu4EiS3Wr tUHokM3bd7noVDGtEQjGrrNb YXJlZCAyIHNsaWRlcyAoMiBI JkUpXHBhciANClxwYXIgDQpU a6MpaPI2EYEdDHWwaDXye2yy OSKdNIxxvRNqKH1EF0toGYMa UOJsHFWry0mcYUL7zV4rAFF2 YmVzIHdlcmUgbGFiZWxlZCBv qeViiXFvh0b5tJTwTZPgJV12 KY9nqIIjFH4mFGSraLZ6FPIu WKVyyIjiwQUacTywpaJmqJ3w WUDbJDZ6KQIeraFaaUUjQ0F6 kS6eMM9rNQGclZadgxEdlSPo bnRpdHkuIFxmczIyICANClxw bGFpblxlcGljTmVzdERvYzBc jVxnyE23RYCoqPCjBFP8BB0d VHXkytydENUbEKIvIPJ0BLra qH44dIYaCFCaTJVplHFotT7N WXXkGQH4CAejmT80dVGuWN6V DKTwYDJ2YSAwyNJvHOU7VU7k fQ0KfQ== Cytology Rapid x6mndALqYHVdyHOIFCAlRjem Assessment (test code mmJnBJDenPTaN5HlsoraOOpp = [id number]) GO5eGN2jrDyfnYPyqBGfEU2N XGRlZmYxXHBhcGVydzEyMjQw DEQxxDNyfIP6TIYpWA3zhvym QPpzUFvrMZFlqhU0HDWapVOy P7UdJYGiNP7vmlxyXZX9XQdh uM1hafYCXxlqOp0kkAYccSxa ZjFcZmNoYXJzZXQwXGZuaWwg JBCvDBa2aT2GCpsaEEQ4DABX EchiRDHoDT2Uy4qnNYShqVIz GWL5EGdptGTvSLEhQDLdXJp9 MHEfAFkfhNPfZB9vqGhhMtjf yJloq9KjhRFeTIekNGRkEYEr GBiuGRRkKQ8NJaVaKDs2GjL3 OmOdHHm5KOx9JT7YEvZyTBVw XID7QXU6KiZkRMw9VQyaTT8D EEXsYoS4GPX4BCHmOCM4LPTp OOh4HCIlEXvoBWNvgEXkRMig JvWhJHFfEOcwwEGbTS6puWuz bGFpblxmczIwXHBhciANClxw bGFpblxlcGljTmVzdERvYzEg DQpcbHRycGFyXGxpbjBccmlu MCANClxsdHJjaFxmczIwIEEx ItTsB50NXMQAGTEEPKPzEQ3H KCWGWFZEO4XCJJGPSJYJA5d1 OQMLOYUAB39VWfRmRQFOKVYL TUFHRSBHVUlERUQgRklORSBO RUVETEUgQVNQSVJBVElPTlxw QFCiUZoTMBYfVNRudc7acKFy MXD7PJk2VSUlx84dxCZhIj9g cTMtJOE8DQBhEW3ry8frcfeq qMClRH3OCBDjmXUxmOzqidTT tPrlp6QwRIWiGMTjmZVvboHk CZPaYLp6COUHo4ZcwCw0SPMh j2IuoAOycCqfSL40FEUlyLyg DjPhhVZhJZ0KQZAvBWhibMqe GEZ8VPGvnEcaUED2DDl4SBMk p326POEkKFSlyC7wwQRwtgRr iyDgXEWxzBfovaHngoIwH27t eTKhnCEeqCHqlkRmCq13SPvD ClxwbGFpblxlcGljTmVzdERv BpVacPhbwC52KYEozDGkGZY5 AA8pFLFzypmrDUMxJYRdKHE5 IMruoU95pRSmXBVtLUCevOYk gW0LLNMyQEA5RYayzI47sDOy WA8XEWLnLYF3MGUxoOThRDK2 VG3vnI0ZwC== Embedded Images (test code = [id number]) [facility] 2021-04-11 15:25:59Ultrasound and fluoroscopically guided biopsy of right forearmmass, fine-needle aspirate and cores were obtained.Fluoroscopy GUIDED RIGHT FOREARM MASS BIOPSY HISTORY: Biopsy is requested.Right forearm mass with pathologic fx. Pleasebiopsy to establish diagnosis MEDICATIONS: Lidocaine for local analgesia. No moderate sedation wasrequired. I reviewed the patient?s current medication list as noted in thenursing assessment, and the following actions were taken: None [] ATTENDING PRESENCE: ?As the attending radiologist, I was present in theroom during the entire procedure. PROCEDURE: After witnessed signed informed consent, the patient's rightforearm was placed on the table in pronated position and dorsal forearmprepped and draped in the usual sterile fashion. [place] protocol timeoutwas performed verifying correct patient, correct site, and correctprocedure. Fluoroscopy was utilized to localize the lesion, image wassaved. Local lidocaine was administered at the biopsy site under ultrasoundguidance. Using ultrasound guidance, a 25-gauge needle was used to obtain fine needleaspiration, this was submitted to cytopathology who confirmed appropriatelocation for cores. Then, via a 17-gauge coaxial needle, five 18-gaugecores were obtained and submitted in formalin. The patient tolerated the procedure well. COMPLICATIONS: None. ?Estimated Blood Loss : <5 cc [facility], Radiant Results Inft User - 04/11/2021 10:27 AM CDT Fluoroscopy GUIDED RIGHT FOREARM MASS BIOPSYHISTORY: Biopsy is requested.Right forearm mass with pathologic fx. Pleasebiopsy to establish diagnosis MEDICATIONS: Lidocaine for local analgesia. No moderate sedation wasrequired. I reviewed the patient?s current medication list as noted in thenursing assessment, and the following actions were taken: None []ATTENDING PRESENCE: As the attending radiologist, I was present in [facility] during the entire procedure.PROCEDURE: After witnessed signed informed consent, the patient's rightforearm was placed on the table in pronated position and dorsal forearmprepped and draped in theusual sterile fashion. [place] protocol timeoutwas performed verifying correct patient, correct site, and correctprocedure. Fluoroscopy was utilized to localize the lesion, image wassaved. Local lidocaine was administered at the biopsy site under ultrasoundguidance. Using ultrasound guidance, a 25-gauge needle was used to obtain fine needleaspiration, this was submitted to cytopathology who confirmed appropriatelocation for cores. Then, via a 17-gauge coaxial needle, five 18- gaugecores were obtained and submitted in formalin. The patient tolerated the procedure well.COMPLICATIONS: None. Estimated Blood Loss : <5 ccIMPRESSIONUltrasound and fluoroscopically guided biopsy of right forearmmass, fine-needle aspirate and cores were obtained.[facility] CT ABDOMEN PELVIS W [id number] 18:35:31CT Abdomen and Pelvis with intravenous contrast. CLINICAL HISTORY: Assess for metastatic disease. DOSE: Up-to-date CT equipment and radiation dose reduction techniques wereemployed. TECHNIQUE : Contiguous axial imaging from the level of the lung basesthrough the pubic symphysis were performed after the uncomplicatedadministration of Omnipaque contrast material. ?Coronal and sagittalreconstructions were obtained. Auto mA and/or iterative reconstruction wereused to reduce radiation dose. FINDINGS: ? Liver, Gallbladder and Spleen: Liver is enlarged, 20 cm in length andshowed mild diffuse steatosis. Spleen measures approximately 13.5 x 5.5 cm.No focal lesions visualized in the liver or in the spleen.Minimalthickening of the gallbladder wall is noted without any calcifiedgallstones. Biliary ducts and the pancreatic duct appear of normal size. Peritoneum: ?No free air or free fluid. No lymphadenopathy. Pancreas and Adrenals: ?Unremarkable pancreas and adrenal glands. Kidneys and Ureters: Multiple hypodense lesions detected in both kidneys,largest irregular shaped 17 mm lesion in the anterior cortex of the upperpole of the right kidney and the largest lesion is in the anteriorinterpolar left kidney of 25 mm size. Lesions are consistent with Bosniaktype I and type II. 3 mm stone noted in the middle pole of the left kidney. No hydronephrosis. Vessels: Mlkz-gh-prfmbpzf atherosclerosis in the aorta and iliac arteries.Patent hepatic/portal venous circulation and renal veins. Retroperitoneum: No abnormal fluid or lymphadenopathy. Bowel: Mild constipation, diverticulosis of the large bowel noted, moreaffecting the sigmoid and descending colon without any acute changes ofdiverticulitis. Normal appendi x visualized. Bladder and Reproductive Organs:Grossly unremarkable under distended and unopacified urinary bladder.Prostate gland is mildly enlarged. Bones: 3.5 cm size osteolytic lesion in the left iliac bone extending intothe acetabulum.Degenerative disc disease at L4-L5, L5-S1.7 mm dense lesion in the left iliac bone is likely incidental bone island.Bilateral sacroiliac joint arthritis is noted. Soft tissues: Small indirect type of fat-containing bilateral inguinalhernias and 2 x 1 cm size fat-containing umbilical hernia. CONCLUSION:1. 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 Hepatosplenomegaly with hepatic steatosis.3. Multiple Bosniak type I and Bosniak type II bilateral renal cysticlesions. Bosniak type II lesion should be monitored by follow up CT scan in6 months.4. 3 mm nonobstructing stone in the left kidney. [facility], Radiant Results Inft User - 03/15/2021 1:36 PM CDTCT Abdomen and Pelvis with intravenous contrast.CLINICAL HISTORY: Assess for metastatic disease.DOSE: Up-to-date CT equipment and radiation dose reduction techniques wereemployed. TECHNIQUE : Contiguous axial imaging from the levelof the lung basesthrough the pubic symphysis were performed after the uncomplicatedadministration ofOmnipaque contrast material. Coronal and sagittalreconstructions were obtained. Auto mA and/or iterative reconstruction wereused to reduce radiation dose.FINDINGS: Liver, Gallbladder and Spleen: Liver is enlarged, 20 cm in length andshowed mild diffuse steatosis. Spleen measures approximately 13.5 x5.5 cm.No focal lesions visualized in the liver or in the spleen. Minimalthickening of the gallbladder wall is noted without any calcifiedgallstones. Biliary ducts and the pancreatic duct appear of normal size.Peritoneum: No free air or free fluid. No lymphadenopathy.Pancreas and Adrenals: Unremarkable pancreas and adrenal glands.Kidneys and Ureters: Multiple hypodense lesions detected in both kidneys,largest irregular shaped 17 mm lesion in the anterior cortex of the upperpole of the right kidneyand the largest lesion is in the anteriorinterpolar left kidney of 25 mm size. Lesions are consistent with Bosniaktype I and type II.3 mm stone noted in the middle pole of the left kidney. No hydronephrosis. Vessels: [id number] atherosclerosis in the aorta and iliac arteries.Patent hepatic/portal venous circulation and renal veins.Retroperitoneum: No abnormal fluid or lymphadenopathy.Bowel: Mild constipation, diverticulosis of the large bowel noted, moreaffecting the sigmoid and descending colon without any acute changes ofdiverticulitis. Normal appendix visualized.Bladder and Reproductive Org ans:Grossly unremarkable under distended and unopacified urinary bladder.Prostate gland is mildly enlarged.Bones: 3.5 cm size osteolytic lesion in the left iliac bone extending intothe acetabulum.Degenerative disc disease at L4-L5, L5-S1.7 mm dense lesion in the left iliac bone is likely incidental bone island.Bilateral sacroiliac joint arthritis is noted.Soft tissues: Small indirect type of fat-containing bilateral inguinalhernias and 2 x 1 cm size fat- containing umbilical hernia.CONCLUSION:1. 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 Hepatosplenomegaly with hepatic steatosis.3. Multiple Bosniak type I and Bosniak type II bilateral renal cysticlesions. Bosniak type II lesion should be monitored by follow up CTscan in6 months.4. 3 mm nonobstructing stone in the left kidney.[facility] 2021-03-15 18:26:49HISTORY: Evaluate for metastatic disease, pathological fracture of distalright radius TECHNIQUE: Contrast-enhanced 64-mutidetector CT scan of the chest wascompleted with intravenous injection of ?non ionic contrast medium.Subsequently numerous sagittal, coronal and MIP reformations weregenerated. FINDINGS: Visualized thyroid gland showed no focal lesions. Trachea andcentral bronchial airways appear normal.Enlarged lymph nodes are seen surrounding the trachea, in the AP windowregion, in the dhaval and subcarinal space (ranging from less than 1 cm up to1.8 cm in size). Several 2 mm size to 10 mm size nodules detected scattered throughout bothlungs (at least 26 nodules noted in the right lung and at least 17 nodulesin the left lung). An irregular shaped tumor suspected adjacent to left suprahilar regionwhich is encasing left upper lobe bronchial airways causing minimal distalatelectasis. This tumor is approximately 2.9 x 2.1 cm in size. Triple-vessel coronary atherosclerosis is noted. Atherosclerosis is alsonoted in the aortic arch with irregular shaped 2.7 cm size saccularaneurysm along the inferolateral wall of the mid aortic arch. The aneurysmis located adjacent to remote focal aortic dissection. Head of the right humerus showed an irregular shaped 3.2 cm lesion but thelesion appears benign. Prominent Schmorl's node seen in the upper and lowerplates of some of the middle thoracic vertebral bodies. No pathologicallesion or fracture is seen in the thoracic vertebral bodies. CONCLUSIONS:1. 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 Enlarged hilar/mediastinal lymph nodes, worrisome for metastaticdisease.3. Numerous bilateral pulmonary nodules ranging from 2 mm to 1 cm in size,worrisome for metastatic disease.4. 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 Triple vessel coronary atherosclerosis. [facility], Radiant Results Inft User - 03/15/2021 1:27 PM CDTHISTORY: Evaluate for metastatic disease, pathological fracture of distalright radiusTECHNIQUE: Contrast-enhanced 64-mutidetector CT scan of the chest wascompleted with intravenous injection of non ionic contrast medium.Subsequently numerous sagittal, coronal and MIP reformations weregenerated.FINDINGS: Visualized thyroid gland showed no focal lesions. Trachea andcentral bronchial airways appear normal.Enlarged lymph nodes are seen surrounding the trachea, in the AP windowregion, in the dhaval and subcarinal space (ranging from less than 1 cm up to1.8 cm in size).Several 2 mm size to 10 mm size nodules detected scattered throughout bothlungs (at least 26 nodules noted in the right lung and at least 17 nodulesin the left lung).An irregular shaped tumor suspected adjacent to left suprahilar regionwhich is encasing left upper lobe bronchial airways causing minimal distalatelectasis. This tumor is approximately 2.9 x 2.1 cm in size.Triple-vessel coronary atherosclerosis is noted. Atherosclerosis is alsonoted in the aortic arch with irregular shaped 2.7 cm size saccularaneurysm along the inferolateral wall of the mid aortic arch. The aneurysmis located adjacent to remote focal aorticdissection.Head of the right humerus showed an irregular shaped 3.2 cm lesion but thelesion appears benign. Prominent Schmorl's node seen in the upper and lowerplates of some of the middle thoracic vertebral bodies. No pathologicallesion or fracture is seen in the thoracic vertebral bodies.CONCLUSIONS:1. 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 Enlarged hilar/mediastinal lymph nodes, worrisome for metastaticdisease.3. Numerous bilateral pulmonary nodules ranging from 2 mm to 1 cm in size,worrisome for metastatic disease.4. Probable old,healed dissection in the inferolateral wall of the aorticarch with development of saccular 2.7 cm aneurysm in the vicinity.5. Triple vessel coronary atherosclerosis.[facility]"
[2022-04-11] MEDS ORDERED: ONDANSETRON 4 MG (ODT) TAB ONE (15:14)
[2022-04-11] MEDS ORDERED: HYDROMORPHONE HCL 2 MG/ML inj ONE (15:14)
--- NOTE | 2022-04-11 15:35 | ER ---
Nurse's Notes [facility] Name: Andrés Medellin Age: 61 yrs Sex: Male : 1960 Arrival Date: 04/11/2022 Time: 13:27 Bed 11 Private MD: J Carlos Gant Diagnosis: Low back pain Presentation: 04/11 13:47 Chief complaint: Chief complaint: Patient states: lower back pain x 1 month; states had vg1 a MRI done here and was told by Enrique had a bulging disc; states pain has become worse; also states numbness and tingling to Left leg. 13:48 Coronavirus screen: Vaccine status: Patient reports receiving the 2nd dose of the covid vg1 vaccine. Client denies travel out of the [place] in the last 14 days. Ebola Screen: Patient denies exposure to infectious person. Patient denies travel to an Ebola-affected area in the 21 days before illness onset. Initial Sepsis Screen: Does the patient meet any 2 criteria? No. Patient's initial sepsis screen is negative. Does the patient have a suspected source of infection? No. Patient's initial sepsis screen is negative. Risk Assessment: Do you want to hurt yourself or someone else? Patient reports no desire to harm self or others. Onset of symptoms was March 11, 2022. 13:48 Method Of Arrival: Wheelchair vg1 13:48 Acuity: INGRIS 4 vg1 Triage Assessment: 14:01 General: Appears uncomfortable, Behavior is cooperative. Pain: Complains of pain in vg1 back and left leg Pain currently is 10 out of 10 on a pain scale. Musculoskeletal: Circulation, motion, and sensation intact. Historical: - Allergies: 13:57 No Known Allergies; vg1 - PMHx: 13:56 Hypertension; Lung Cancer; vg1 - Immunization history:: Client reports receiving the 2nd dose of the Covid vaccine. - Social history:: Smoking status: Patient/guardian denies using tobacco, the patient reports quitting approximately 4 years ago. Assessment: 13:59 Reassessment: received VO from Edgar MELCHOR to administer Dilaudid 2 mg IM x1. vg1 Vital Signs: 13:48 BP 125 / 80; Pulse 82; Resp 16; Temp 98.8; Pulse Ox 99% ; Weight 90.72 kg; Height 5 ft. vg1 11 in. (180.34 cm); Pain 10/10; 13:48 Body Mass Index 27.89 (90.72 kg, 180.34 cm) vg1 ED Course: 13:27 Patient arrived in ED. mr 13:27 J Carlos Gant is Private Physician. mr 13:49 Triage completed. vg1 13:55 Teo Hernández [facility]. jr8 13:55 Errol Vega MD is Attending Physician. jr8 14:01 Arm band placed on. vg1 14:17 Vernell Garcia, RN is Primary Nurse. iw Administered Medications: 15:13 Drug: Dilaudid (HYDROmorphone) 2 mg Route: IM; Site: left deltoid; iw 15:13 Drug: Ondansetron 4 mg Route: PO; iw Outcome: 15:35 Discharge ordered by . jr8 15:47 Patient left the ED. iw Signatures: Sarah Buchanan mr Vernell Garcia, RN RN iw Teo Hernández PA PA 8 Maxine Kimble RN RN vg1 Corrections: (The following items were deleted from the chart) 13:56 13:47 Chief complaint: vg1 vg1
--- NOTE | 2022-04-11 15:35 | EDPHYS ---
Physician Documentation [facility] Name: Andrés Medellin Age: 61 yrs Sex: Male : 1960 Arrival Date: 04/11/2022 Time: 13:27 Bed 11 Private MD: J Carlos Gant ED Physician Errol Vega HPI: 04/11 15:32 This 61 yrs old Male presents to ER via Wheelchair with complaints of Back Pain. jr8 15:32 The patient presents with pain that is chronic, with no known mechanism of injury. The jr8 symptoms are located in the low back. The pain radiates to the left leg. Associated signs and symptoms: The patient has no apparent associated signs or symptoms. Modifying factors: The patient symptoms are alleviated by nothing, the patient symptoms are aggravated by any movement. Severity of symptoms: At their worst the symptoms were moderate, in the emergency department the symptoms are unchanged. The patient has experienced similar episodes in the past, several times. The patient has not recently seen a physician. Patient stated that he deals with pinched nerve and herniated disc low back. Is set to have another injection this upcoming Friday but cannot tolerate the pain. Denies any acute injury. Denies any bowel or bladder dysfunction.. Historical: - Allergies: 13:57 No Known Allergies; vg1 - PMHx: 13:56 Hypertension; Lung Cancer; vg1 - Immunization history:: Client reports receiving the 2nd dose of the Covid vaccine. - Social history:: Smoking status: Patient/guardian denies using tobacco, the patient reports quitting approximately 4 years ago. ROS: 15:32 Eyes: Negative for injury, pain, redness, and discharge, ENT: Negative for injury, jr8 pain, and discharge, Neck: Negative for injury, pain, and swelling, Cardiovascular: Negative for chest pain, palpitations, and edema, Respiratory: Negative for shortness of breath, cough, wheezing, and pleuritic chest pain, Abdomen/GI: Negative for abdominal pain, nausea, vomiting, diarrhea, and constipation, MS/Extremity: Negative for injury and deformity, Skin: Negative for injury, rash, and discoloration, Neuro: Negative for headache, weakness, numbness, tingling, and seizure. 15:32 Back: Positive for pain at rest, pain with movement, radiated pain, of the low back area. Exam: 15:32 Constitutional: This is a well developed, well nourished patient who is awake, alert, jr8 and in no acute distress. Cardiovascular: Regular rate and rhythm with a normal S1 and S2. No gallops, murmurs, or rubs. Normal PMI, no JVD. No pulse deficits. Respiratory: Lungs have equal breath sounds bilaterally, clear to auscultation and percussion. No rales, rhonchi or wheezes noted. No increased work of breathing, no retractions or nasal flaring. Abdomen/GI: Soft, non-tender, with normal bowel sounds. No distension or tympany. No guarding or rebound. No evidence of tenderness throughout. Skin: Warm, dry with normal turgor. Normal color with no rashes, no lesions, and no evidence of cellulitis. MS/ Extremity: Pulses equal, no cyanosis. Neurovascular intact. Full, normal range of motion. 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 Cranial nerves II-XII grossly intact. Motor strength 5/5 in all extremities. Sensory grossly intact. 15:32 Back: pain, that is moderate, of the low back area, ROM is painful, normal spinal alignment noted, vertebral tenderness, is not appreciated. Vital Signs: 13:48 BP 125 / 80; Pulse 82; Resp 16; Temp 98.8; Pulse Ox 99% ; Weight 90.72 kg; Height 5 ft. vg1 11 in. (180.34 cm); Pain 10/10; 13:48 Body Mass Index 27.89 (90.72 kg, 180.34 cm) vg1 MDM: 13:55 Patient medically screened. jr8 15:32 Data reviewed: vital signs, nurses notes. Data interpreted: Pulse oximetry: on room air jr8 is 99 %. Interpretation: normal. Counseling: I had a detailed discussion with the patient and/or guardian regarding: the historical points, exam findings, and any diagnostic results supporting the discharge/admit diagnosis, the need for outpatient follow up, a painting department supervisor, to return to the emergency department if symptoms worsen or persist or if there are any questions or concerns that arise at home. Administered Medications: 15:13 Drug: Dilaudid (HYDROmorphone) 2 mg Route: IM; Site: left deltoid; iw 15:13 Drug: Ondansetron 4 mg Route: PO; iw Disposition Summary: 04/11/22 15:35 Discharge Ordered Location: Home jr8 Problem: new jr8 Symptoms: have improved jr8 Condition: Stable jr8 Diagnosis - Low back pain jr8 Followup: jr8 - With: Private Physician - When: 5 - 6 days - Reason: Recheck today's complaints, Continuance of care, Re-evaluation by your physician Discharge Instructions: - Discharge Summary Sheet jr8 - Chronic Back Pain jr8 - Musculoskeletal Pain jr8 Forms: - Medication Reconciliation Form jr8 - Thank You Letter jr8 - Antibiotic Education jr8 - Prescription Opioid Use jr8 Signatures: Vernell Garcia RN RN iw Teo Hernández PA PA jr8 Maxine Kimble RN RN vg1
[2022-04-11 15:52] VITALS: BP 125/80; TEMP 98.8; O2SAT 99
== END 2022-04-11 15:47 | disposition home or self-care (01) ==
LOC: ER 13:25
DX: M54.50 Low back pain, unspecified (principal); I10 Essential (primary) hypertension; Z85.118 Personal history of other malignant neoplasm of bronchus and lung
CPT/HCPCS: 96372; 99282; J1170

== ENCOUNTER 2022-04-12 10:27 | Emergency (ER) | payer OTHER ==
--- OUTSIDE RECORDS SUMMARY | 2022-04-12 10:32 | XMS REPORT | Continuity of Care Document ---
:1960 Author Organization [facility] t Address [address] [place] [address] Care Team Providers Name Role Phone VALD DAVIS Primary Care Physician Unavailable SHILO Attending [...] Number Effective Date Expiration Date Marcelo BOATENG/REGIS [id number] 2021 MEDICARE ADVANTAGE 00:00:00 [facility] KILO [id number] 2020 00:00:00 Problems Condition Condition Condition Status Onset Resolution Last Treating Co mments Source Name Details Category Date Date Treatment Clinician Date Coronary Coronary Disease Active Unive rs artery artery 6-18 [place] [facility] Atypical Atypical Disease Active Unive rs chest pain chest pain 6-17 it y of 00:00: [address] Obesity Obesity Disease Active Univers (BMI (BMI 6-17 ity of 30-39.9) 30-39.9) 00:00: [address] Essential Essential Disease Active Uni vers hypertensi hypertensi 6-17 it y of on on 00:00: [address] Dyslipidem Dyslipidem Disease Active U elida ia ia 6-17 ity of 00:00: [address] Lung Lung Disease Active Univers cancer cancer 6-15 ity of 00:00: [address] Lung mass Lung mass Disease Active Uni vers 5-20 ity of 00:00: [address] 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 00:00: [place] of right of right 00 Medica l radius due radius due Br anch to to neoplastic neoplastic disease disease with with routine routine healing, healing, subsequent subsequent encounter encounter No known No known Disease Unive rs active active ity of problems problems [facility] Allergies, Adverse Reactions, Alerts Allergy Allergy Status Severity Reaction(s) Onset Inactive Treating Comm ents Source Name Type Date Date Clinician NO KNOWN Drug Active Univers ALLERGIE Class ity of S [facility] Social History Social Habit Start Date Stop Date Quantity Comments Source Exposure to Not sure University of SARS-CoV-2 [facility] (event) Branch Education 2021-05-03 2021-05-03 15 University of 00:00:00 00:00:00 [facility] Tobacco Comment 2021-05-03 2021-05-03 Quit 2.5 years Unive rsity of 00:00:00 00:00:00 ago [facility] Tobacco use and 2021-02-05 2021-02-05 Never used [facility] llege of exposure 00:00:00 00:00:00 Medicine Alcohol intake 2021-02-05 2021-02-05 Current drinker [facility] of 00:00:00 00:00:00 of alcohol Medicine (finding) Sex Ass[birth year] At [birth year] [facility] llege of 00:00:00 00:00:00 Medicine Smoking Status Start Date Stop Date Source Current some day 2021-04-04 00:00:00 [facility] smoker [facility] Former smoker 2021-02-05 00:00:00 2021-02-05 00:00:00 [facility] home of [facility] Medications Ordered Filled Start Stop Current Ordering Indication Dosage Frequency Signature Comments Components Source Medication Medication Date Date Medication? Clinician (SIG) Name Name gadoteridol 2020- No [id number] .2mL/kg 21.7 mL Univers (PROHANCE-2 05-09 (0.2 mL/kg i ty of 0 mL) 16:30: 16:21 ?108.5 [place] injection 00 :00 kg), Medical 21.7 mL Intravenou Branch s, ONCE, 1 dose, Fri05/09/21 at 1130, Routine tc 2020- No [id number] 25i 25 Univer s 99m-medrona 05-07 millicurie i ty of te 16:00: 15:55 , [place] (DRAXIMAGE 00 :00 Intravenou Med ical MDP-25) s, ONCE, 1 Branch injection dose, 05/07/21 at millicurie 1100, Routine aspirin 81 Yes [id number] 81mg Take 1 U nivers mg chewable 6-19 tablet by ity of tablet 00:00: mouth [place] 00 daily. [facility] Branch aspirin 81 Yes [id number] 81mg Take 1 U nivers mg chewable 6-19 tablet by ity of tablet 00:00: mouth [place] 00 daily. [facility] aspirin 81 Yes [id number] 81mg Take 1 U nivers mg chewable 6-19 tablet by ity of tablet 00:00: mouth [place] 00 daily. [facility] aspirin 81 2020-0 Yes [id number] 81mg Take 1 U nivers mg chewable 6-19 tablet by ity of tablet 00:00: mouth [place] 00 daily. Medical Branch aspirin 81 2020-0 Yes [id number] 81mg Take 1 U nivers mg chewable 6-19 tablet by ity of tablet 00:00: mouth [place] 00 daily. Medical Branch aspirin 81 2020-0 Yes [id number] 81mg Take 1 U nivers mg chewable 6-19 tablet by ity of tablet 00:00: mouth [place] 00 daily. Medical Branch aspirin 81 2020-0 Yes [id number] 81mg Take 1 U nivers mg chewable 6-19 tablet by ity of tablet 00:00: mouth [place] 00 daily. Medical Branch aspirin 81 2020-0 Yes [id number] 81mg Take 1 U nivers mg chewable 6-19 tablet by ity of tablet 00:00: mouth [place] 00 daily. [facility] Branch diazePAM 5 0 Yes 10mg Take 10 mg U nivers mg tablet 6-18 by mouth. ity o f 18:53: [address] thyroid 60 2020-0 Yes 60mg Take 60 mg U nivers mg tablet 6-18 by mouth. ity o f 18:53: [address] diazePAM 5 2020-0 Yes 10mg Take 10 mg U nivers mg tablet 6-18 by mouth. ity o f 18:53: [address] thyroid 60 2020-0 Yes 60mg Take 60 mg U nivers mg tablet 6-18 by mouth. ity o f 18:53: [address] diazePAM 5 0 Yes 10mg Take 10 mg U nivers mg tablet 6-18 by mouth. ity o f 18:53: [address] thyroid 60 2020-0 Yes 60mg Take 60 mg U nivers mg tablet 6-18 by mouth. ity o f 18:53: [address] diazePAM 5 2020-0 Yes 10mg Take 10 mg U nivers mg tablet 6-18 by mouth. ity o f 18:53: [address] thyroid 60 2020-0 Yes 60mg Take 60 mg U nivers mg tablet 6-18 by mouth. ity o f 18:53: [address] diazePAM 5 2020-0 Yes 10mg Take 10 mg U nivers mg tablet 6-18 by mouth. ity o f 18:53: [address] thyroid 60 2020-0 Yes 60mg Take 60 mg U nivers mg tablet 6-18 by mouth. ity o f 18:53: [address] diazePAM 5 2020-0 Yes 10mg Take 10 mg U nivers mg tablet 6-18 by mouth. ity o f 18:53: [address] thyroid 60 2020-0 Yes 60mg Take 60 mg U nivers mg tablet 6-18 by mouth. ity o f 18:53: [address] diazePAM 5 2020-0 Yes 10mg Take 10 mg U nivers mg tablet 6-18 by mouth. ity o f 18:53: [address] thyroid 60 2020-0 Yes 60mg Take 60 mg U nivers mg tablet 6-18 by mouth. ity o f 18:53: [address] diazePAM 5 2020-0 Yes 10mg Take 10 mg U nivers mg tablet 6-18 by mouth. ity o f 18:53: [address] thyroid 60 2020-0 Yes 60mg Take 60 mg U nivers mg tablet 6-18 by mouth. ity o f 18:53: [address] sulfur 2020-0 2020- No [id number] 5mL 5 mL, Unive rs hexafluorid 18 05-04 Intravenou i ty of e microsphr 15:30: 15:30 s, ONCE, 1 [place] (LUMASON) 00 :00 dose, Fri Medic al injection 5 05/04/21 at Br anch mL 1030, Routine
production team member approving Restricted medication : CHINTAN FORD lisinopriL Yes 40mg 40 mg, Unive rs (PRINIVIL,Z 18 Oral, ity of ESTRIL) 14:00: DAILY, [place] tablet 40 00 First dose Medi frances mg on Fri Branch 05/04/21 at 0900, Until Discontinu ed fenofibrate Yes 67mg 67 mg, Univ ers micronized 18 Oral, ity of (LOFIBRA) 14:00: DAILY, [place] capsule 67 00 First dose Med ical [...] 6-18 by mouth. ity o f 13:53: [address] thyroid 60 2020-0 Yes 60mg Take 60 mg U nivers mg tablet 6-18 by mouth. ity o f 13:53: [address] carvediloL Yes 12.5mg 12.5 mg, U [...] 0600, Until Discontinu ed, Routine carvediloL Yes [id number] 12.5mg Take 1 Univers 12.5 mg 6-18 tablet by ity of tablet 00:00: mouth (two) Medical times Branch daily with meals. carvediloL Yes [id number] 12.5mg Take 1 Univers 12.5 mg 6-18 tablet by ity of tablet 00:00: mouth (two) Medical times Branch daily with meals. carvediloL Yes [id number] 12.5mg Take 1 Univers 12.5 mg 6-18 tablet by ity of tablet 00:00: mouth 2 (two) Medical times Branch daily with meals. carvediloL 0 Yes [id number] 12.5mg Take 1 Univers 12.5 mg 6-18 tablet by ity of tablet 00:00: mouth (two) Medical times Branch daily with meals. carvediloL Yes [id number] 12.5mg Take 1 Univers 12.5 mg 6-18 tablet by ity of tablet 00:00: mouth 2 (two) Medical times Branch daily with meals. carvediloL Yes [id number] 12.5mg Take 1 Univers 12.5 mg 6-18 tablet by ity of tablet 00:00: mouth 2 [place] (two) Medical times Branch daily with meals. carvediloL Yes [id number] 12.5mg Take 1 Univers 12.5 mg 6-18 tablet by ity of tablet 00:00: mouth 2 [place] 00 (two) Medical times Branch daily with meals. carvediloL Yes [id number] 12.5mg Take 1 Univers 12.5 mg 6-18 tablet by ity of tablet 00:00: mouth 2 [place] (two) Medical times Branch daily with meals. diazePAM Yes 5mg 5 mg, Univers (VALIUM) 05-03 Oral, ity of tablet 5 mg 23:32: BIDPRN, [place] as 45 Starting [facility] 05/03/21 at 1832, Until Discontinu ed, Routine, Agitation, Anxiety hydralAZINE Yes 10mg 10 mg, Univ ers (APRESOLINE 05-03 Slow IV ity o f ) injection 23:21: Push, [place] 10 mg 02 Q6HPRN, Medical Starting Branch [facility] 05/03/21 at 1821, Until Discontinu ed, Routine, DBP=>100; SBP=>160, For SBP > 160
Ind ication: Hypertensi ve Emergency enoxaparin Yes 40mg 40 mg, Unive rs (LOVENOX) 05-03 Subcutaneo ity of injection 22:00: [place] 00 First dose Medical on [facility] Branch 05/03/21 at 1700, Until Discontinu ed, Routine morpHINE 2020- No 4mg 4 mg, Slow Un cat injection 4 05-0318 IV Push, ity of mg 21:28: 21:27 Q3HPRN, [place] 53 :53 Starting [facility] 05/03/21 at 1628, Until Fri05/04/21 at 1627, Routine, Pain (scale 7-10) HYDROcodone 2020- No 1{tbl} 1 tablet, Univers -acetaminop 05-0319 Oral, ity of hen (NORCO 21:28: 21:27 Q6HPRN, Jese as 5) 5-325 mg 43 :43 Starting Medi frances tablet 1 [facility] tablet 05/03/21 at 1628, Until 05/05/21 at 1627, Routine, Pain (scale 4-6) acetaminoph Yes 650mg 650 mg, Un cat en 05-03 Oral, ity of (TYLENOL) 21:28: Q6HPRN, [place] tablet 650 40 Starting Medic al mg [facility]ie [facility] 05/03/21 at 1628, Until Discontinu ed, Routine, Pain (scale 1-3) aspirin 2020- No 325mg 325 mg, Unive rs tablet 325 05-03 Oral, ity of mg 19:15: 18:39 ONCE, 1 [place] 00 :00 dose, [facility] 05/03/21 at [facility] 1415, STAT cloNIDine 2020- No .1mg 0.1 mg, Univ ers (CATAPRES) 05-03 Oral, ity of tablet 0.1 19:00: 18:39 ONCE, 1 [place] as mg 00 :00 dose, [facility] 05/03/21 at [facility] 1400, STAT iopamidol 2020- No [id number] 100mL 100 mL, Univers (ISOVUE 05-03 Intravenou ity o f 370-500 mL) 18:30: 17:21 s, ONCE, 1 [place] injection 00 :00 dose, [facility] Medic al 100 mL 05/03/21 at [facility] 1330, Routine hydralAZINE 2020- No PRN, Unive rs (APRESOLINE 5-25 05-25 Starting ity of ) injection 18:40: 18:40 Counts Include 234 Beds At [facility] 00 :00 04/10/21 at [facility] 1340, Branch Until [facility] 04/10/21 at 1340, STAT hydralAZINE 2020- No PRN, Unive rs (APRESOLINE 5-25 05-25 Starting ity of ) injection 18:40: 18:40 Counts Include 234 Beds At [facility] 00 :00 04/10/21 at Medical 1340, Branch Until [facility] 04/10/21 at 1340, STAT gadoteridol 2020- No [id number] .2mL/kg 0.2 mL/kg, Univers (PROHANCE-2 03-29 Intravenou i ty of 0 mL) 20:15: 20:14 s, ONCE, 1 [place] injection 00 :00 dose, Jessie Medic al 0.2 mL/kg 03/29/21 at [facility] ch 1515, Routine iohexol 2020- No [id number] 120mL 120 mL, Univers (OMNIPAQUE 03-15 Intravenou it y of 350 18:15: 17:50 s, ONCE, 1 [place] BULK-150 00 :00 dose, Jessie Medica l mL) 03/15/21 at Branch injection 1315, 120 mL Routine diazePAM 5 Yes 10mg Take 10 mg U nivers mg tablet 4-13 by mouth. ity o f 19:40: [address] thyroid 60 2020-0 Yes 60mg Take 60 mg U nivers mg tablet 4-13 by mouth. ity o f 19:40: [address] diazePAM 5 0 Yes 10mg Take 10 mg U nivers mg tablet 4-13 by mouth. ity o f 19:40: [address] thyroid 60 0 Yes 60mg Take 60 mg U nivers mg tablet 4-13 by mouth. ity o f 19:40: [address] diazePAM 5 2020-0 Yes 10mg Take 10 mg U nivers mg tablet 4-13 by mouth. ity o f 19:40: [address] thyroid 60 2020-0 Yes 60mg Take 60 mg U nivers mg tablet 4-13 by mouth. ity o f 19:40: [address] diazePAM 5 0 Yes 10mg Take 10 mg U nivers mg tablet 4-13 by mouth. ity o f 19:40: [address] thyroid 60 2020-0 Yes 60mg Take 60 mg U nivers mg tablet 4-13 by mouth. ity o f 19:40: [address] diazePAM 5 2020-0 Yes 10mg Take 10 mg U nivers mg tablet 4-13 by mouth. ity o f 19:40: [address] thyroid 60 2020-0 Yes 60mg Take 60 mg U nivers mg tablet 4-13 by mouth. ity o f 19:40: [address] diazePAM 5 2020-0 Yes 10mg Take 10 mg U nivers mg tablet 4-13 by mouth. ity o f 19:40: [address] thyroid 60 2020-0 Yes 60mg Take 60 mg U nivers mg tablet 4-13 by mouth. ity o f 19:40: [address] diazePAM 5 2020-0 Yes 10mg Take 10 mg U nivers mg tablet 4-13 by mouth. ity o f 19:40: [address] thyroid 60 2020-0 Yes 60mg Take 60 mg U nivers mg tablet 4-13 by mouth. ity o f 19:40: [address] diazePAM 5 2020-0 Yes 10mg Take 10 mg U nivers mg tablet 4-13 by mouth. ity o f 19:40: [address] thyroid 60 2020-0 Yes 60mg Take 60 mg U nivers mg tablet 4-13 by mouth. ity o f 19:40: [address] diazePAM 5 2020-0 Yes 10mg Take 10 mg U nivers mg tablet 4-13 by mouth. ity o f 19:40: [address] thyroid 60 2020-0 Yes 60mg Take 60 mg U nivers mg tablet 4-13 by mouth. ity o f 19:40: [address] diazePAM 5 2020-0 Yes 10mg Take 10 mg U nivers mg tablet 4-13 by mouth. ity o f 19:40: [address] thyroid 60 2020-0 Yes 60mg Take 60 mg U nivers mg tablet 4-13 by mouth. ity o f 19:40: [address] diazePAM 5 2020-0 Yes 10mg Take 10 mg U nivers mg tablet 4-13 by mouth. ity o f 19:40: [address] thyroid 60 2020-0 Yes 60mg Take 60 mg U nivers mg tablet 4-13 by mouth. ity o f 19:40: [address] diazePAM 5 2020-0 Yes 10mg Take 10 mg U nivers mg tablet 4-13 by mouth. ity o f 19:40: [address] thyroid 60 2020-0 Yes 60mg Take 60 mg U nivers mg tablet 4-13 by mouth. ity o f 19:40: [address] diazePAM 5 2020-0 Yes 10mg Take 10 mg U nivers mg tablet 4-13 by mouth. ity o f 19:40: [address] thyroid 60 2020-0 Yes 60mg Take 60 mg U nivers mg tablet 4-13 by mouth. ity o f 19:40: [address] diazePAM 5 2020-0 Yes 10mg Take 10 mg U nivers mg tablet 4-13 by mouth. ity o f 19:40: [address] thyroid 60 2020-0 Yes 60mg Take 60 mg U nivers mg tablet 4-13 by mouth. ity o f 19:40: [address] diazePAM 5 2020-0 Yes 10mg Take 10 mg U nivers mg tablet 4-13 by mouth. ity o f 19:40: [address] thyroid 60 2020-0 Yes 60mg Take 60 mg U nivers mg tablet 4-13 by mouth. ity o f 19:40: [address] diazePAM 5 2020-0 Yes 10mg Take 10 mg U nivers mg tablet 4-13 by mouth. ity o f 19:40: [address] thyroid 60 2020-0 Yes 60mg Take 60 mg U nivers mg tablet 4-13 by mouth. ity o f 19:40: [address] diazePAM 5 2020-0 Yes 10mg Take 10 mg U nivers mg tablet 4-13 by mouth. ity o f 19:40: [address] thyroid 60 2020-0 Yes 60mg Take 60 mg U nivers mg tablet 4-13 by mouth. ity o f 19:40: [address] diazePAM 5 2020-0 Yes 10mg Take 10 mg U nivers mg tablet 4-13 by mouth. ity o f 19:40: [address] thyroid 60 2020-0 Yes 60mg Take 60 mg U nivers mg tablet 4-13 by mouth. ity o f 19:40: [address] diazePAM 5 2020-0 Yes 10mg Take 10 mg U nivers mg tablet 4-13 by mouth. ity o f 19:40: [address] thyroid 60 2020-0 Yes 60mg Take 60 mg U nivers mg tablet 4-13 by mouth. ity o f 19:40: [address] diazePAM 5 2020-0 Yes 10mg Take 10 mg U nivers mg tablet 4-13 by mouth. ity o f 19:40: [address] Branch thyroid 60 2020-0 Yes 60mg Take 60 mg U nivers mg tablet 4-13 by mouth. ity o f 19:40: [address] Branch diazePAM 5 2020-0 Yes 10mg Take 10 mg U nivers mg tablet 4-13 by mouth. ity o f 19:40: [address] thyroid 60 2020-0 Yes 60mg Take 60 mg U nivers mg tablet 4-13 by mouth. ity o f 19:40: [place] [address] Medical Branch acetaminoph 2020-0 Yes Univer s [...] :00 Medical Branch methylPREDN 2020-0 1- No [id number] B ten [place] 02-05 College acetate 19:30: 19:38 of (DEPO-MEDRO 00 :00 Medicin L) 40 MG/ML e 80 mg, lidocaine 1% (10 mg/mL) 2 mL, bupivacaine (MARCAINE) 0.5 % 2 mL methylPREDN 2020- No [id number] Intra-chance [facility] ISolone 3-22 22 cular, [place] acetate 19:30: 19:38 ONCE, 1 of (DEPO-MEDRO 00 :00 dose, Mon Med icin L) 40 MG/ML 02/05/21 at e 80 mg, 1430 lidocaine 1% (10 mg/mL) 2 mL, bupivacaine (MARCAINE) 0.5 % 2 mL metformin Yes 1000mg Take 1,000 Julio (GLUCOPHAGE 3-22 mg by [place] ) 1000 MG 18:32: mouth. of tablet 37 Medicin e thyroid Yes 60mg Take 60 mg [place] (ARMOUR) 60 -22 by mouth. Col lege MG tablet 18:32: of 37 Medicin e ramipril Yes [facility] (ALTACE) 10 2- College MG capsule 00:00: of 00 Medicin e fenofibrate Yes [facility] (TRICOR) 2- College 145 MG 00:00: of tablet 00 Medicin e fenofibrate Yes Univer s 145 mg 2- ity of tablet 00:00: [place] [facility] metformin 2020-0 Yes Univers ER 750 mg 2- ity of 24 hr 00:00: [place] tablet Medical Branch ramipriL 10 0 Yes Univer s mg capsule 2- ity of 00:00: Medical Branch fenofibrate 2020-0 Yes Univer s 145 mg 2- ity of tablet 00:00: [place] [facility] metformin 2020-0 Yes Univers ER 750 mg 2- ity of 24 hr 00:00: [place] tablet Medical Branch ramipriL 10 0 Yes Univer s mg capsule 2- ity of 00:00: [place] [facility] fenofibrate 2020-0 Yes Univer s 145 mg 2-01 ity of tablet 00:00: [place] [facility] metformin 2020-0 Yes Univers ER 750 mg 2- ity of 24 hr 00:00: [place] tablet 00 Medical Branch ramipriL 10 0 Yes Univer s mg capsule 2- ity of 00:00: Medical Branch fenofibrate 2020-0 Yes Univer s 145 mg 2-01 ity of tablet 00:00: [place] 00 Medical Branch metformin 2021-0 Yes Univers ER 750 mg 2-01 ity of 24 hr 00:00: [place] tablet 00 Medical Branch ramipriL 10 2020-0 Yes Univer s mg capsule 2-01 ity of 00:00: [place] [facility] fenofibrate 1-0 Yes Univer s 145 mg 2-01 ity of tablet 00:00: [place] [facility] metformin 1-0 Yes Univers ER 750 mg 2-01 ity of 24 hr 00:00: [place] tablet Medical Branch ramipriL 10 2020-0 Yes Univer s mg capsule 2-01 ity of 00:00: [place] [facility] fenofibrate 1-0 Yes Univer s 145 mg 2-01 ity of tablet 00:00: [place] [facility] metformin 1-0 Yes Univers ER 750 mg 2-01 ity of 24 hr 00:00: [place] tablet Medical Branch ramipriL 10 2020-0 Yes Univer s mg capsule 2- ity of 00:00: [place] [facility] fenofibrate 1-0 Yes Univer s 145 mg 2-01 ity of tablet 00:00: [place] [facility] metformin 1-0 Yes Univers ER 750 mg 2-01 ity of 24 hr 00:00: [place] tablet Medical Branch ramipriL 10 2020-0 Yes Univer s mg capsule 2-01 ity of 00:00: [place] [facility] fenofibrate 1-0 Yes Univer s 145 mg 2-01 ity of tablet 00:00: [place] [facility] metformin 2021-0 Yes Univers ER 750 mg 2-01 ity of 24 hr 00:00: [place] tablet Medical Branch ramipriL 10 1-0 Yes Univer s mg capsule 2-01 ity of 00:00: [place] [facility] fenofibrate 2021-0 Yes Univer s 145 mg 2-01 ity of tablet 00:00: [place] [facility] metformin 2021-0 Yes Univers ER 750 mg 2-01 ity of 24 hr 00:00: [place] tablet 00 Medical Branch ramipriL 10 1-0 Yes Univer s mg capsule 2-01 ity of 00:00: [place] [facility] fenofibrate 2021-0 Yes Univer s 145 mg 2-01 ity of tablet 00:00: [place] 00 Medical Branch metformin 2021-0 Yes Univers ER 750 mg 2-01 ity of 24 hr 00:00: [place] tablet Medical Branch ramipriL 10 1-0 Yes Univer s mg capsule 2- ity of 00:00: [place] [facility] fenofibrate 2021-0 Yes Univer s 145 mg 2-01 ity of tablet 00:00: [place] [facility] metformin 1-0 Yes Univers ER 750 mg 2-01 ity of 24 hr 00:00: [place] tablet Medical Branch ramipriL 10 2020-0 Yes Univer s mg capsule 2- ity of 00:00: [place] [facility] fenofibrate 1-0 Yes Univer s 145 mg 2- ity of tablet 00:00: [place] [facility] metformin 1-0 Yes Univers ER 750 mg 2- ity of 24 hr 00:00: [place] tablet Medical Branch ramipriL 10 2020-0 Yes Univer s mg capsule 2- ity of 00:00: [place] [facility] fenofibrate 1-0 Yes Univer s 145 mg 2- ity of tablet 00:00: [place] [facility] metformin 2021-0 Yes Univers ER 750 mg 2-01 ity of 24 hr 00:00: [place] tablet Medical Branch ramipriL 10 1-0 Yes Univer s mg capsule 2- ity of 00:00: [place] [facility] fenofibrate 2021-0 Yes Univer s 145 mg 2- ity of tablet 00:00: [place] [facility] metformin 2021-0 Yes Univers ER 750 mg 2-01 ity of 24 hr 00:00: [place] tablet Medical Branch ramipriL 10 1-0 Yes Univer s mg capsule 2-01 ity of 00:00: [place] [facility] fenofibrate 2021-0 Yes Univer s 145 mg 2-01 ity of tablet 00:00: [place] [facility] metformin 2021-0 Yes Univers ER 750 mg 2-01 ity of 24 hr 00:00: [place] tablet Medical Branch ramipriL 10 1-0 Yes Univer s mg capsule 2-01 ity of 00:00: [place] [facility] fenofibrate 2021-0 Yes Univer s 145 mg 2-01 ity of tablet 00:00: [place] 00 Medical Branch metformin 2021-0 Yes Univers ER 750 mg 2-01 ity of 24 hr 00:00: [place] tablet 00 Medical Branch ramipriL 10 1-0 Yes Univer s mg capsule 2-01 ity of 00:00: Medical Branch fenofibrate 2021-0 Yes Univer s 145 mg 2-01 ity of tablet 00:00: [place] [facility] metformin 2021-0 Yes Univers ER 750 mg 2-01 ity of 24 hr 00:00: [place] tablet 00 Medical Branch ramipriL 10 1-0 Yes Univer s mg capsule 2- ity of 00:00: [place] [facility] fenofibrate 2021-0 Yes Univer s 145 mg 2-01 ity of tablet 00:00: [place] [facility] metformin 1-0 Yes Univers ER 750 mg 2- ity of 24 hr 00:00: [place] tablet Medical Branch ramipriL 10 1-0 Yes Univer s mg capsule 2- ity of 00:00: [place] [facility] fenofibrate 1-0 Yes Univer s 145 mg 2- ity of tablet 00:00: [place] [facility] metformin 2021-0 Yes Univers ER 750 mg 2-01 ity of 24 hr 00:00: [place] tablet Medical Branch ramipriL 10 1-0 Yes Univer s mg capsule 2- ity of 00:00: [place] [facility] fenofibrate 2021-0 Yes Univer s 145 mg 2-01 ity of tablet 00:00: [place] [facility] metformin 2021-0 Yes Univers ER 750 mg 2-01 ity of 24 hr 00:00: [place] tablet Medical Branch ramipriL 10 1-0 Yes Univer s mg capsule 2-01 ity of 00:00: [place] [facility] fenofibrate 2021-0 Yes Univer s 145 mg 2-01 ity of tablet 00:00: [place] [facility] metformin 2021-0 Yes Univers ER 750 mg 2-01 ity of 24 hr 00:00: [place] tablet Medical Branch ramipriL 10 1-0 Yes Univer s mg capsule 2-01 ity of 00:00: [place] [facility] fenofibrate 2021-0 Yes Univer s 145 mg 2-01 ity of tablet 00:00: [place] [facility] metformin 2021-0 Yes Univers ER 750 mg 2-01 ity of 24 hr 00:00: [place] tablet Medical Branch ramipriL 10 2020-0 Yes Univer s mg capsule 2-01 ity of 00:00: Medical Branch fenofibrate 2021-0 Yes Univer s 145 mg 2-01 ity of tablet 00:00: [place] [facility] metformin 2021-0 Yes Univers ER 750 mg 2-01 ity of 24 hr 00:00: [place] tablet Medical Branch ramipriL 10 2020-0 Yes Univer s mg capsule 2-01 ity of 00:00: [place] [facility] fenofibrate 1-0 Yes Univer s 145 mg 2-01 ity of tablet 00:00: [place] [facility] metformin 1-0 Yes Univers ER 750 mg 2- ity of 24 hr 00:00: [place] tablet Medical Branch ramipriL 10 2020-0 Yes Univer s mg capsule 2- ity of 00:00: [place] [facility] fenofibrate 1-0 Yes Univer s 145 mg 2-01 ity of tablet 00:00: [place] [facility] metformin 1-0 Yes Univers ER 750 mg 2-01 ity of 24 hr 00:00: [place] tablet Medical Branch ramipriL 10 2020-0 Yes Univer s mg capsule 2-01 ity of 00:00: [place] [facility] fenofibrate 1-0 Yes Univer s 145 mg 2-01 ity of tablet 00:00: [place] [facility] metformin 2021-0 Yes Univers ER 750 mg 2-01 ity of 24 hr 00:00: [place] tablet Medical Branch ramipriL 10 1-0 Yes Univer s mg capsule 2-01 ity of 00:00: [place] [facility] fenofibrate 2021-0 Yes Univer s 145 mg 2-01 ity of tablet 00:00: [place] [facility] metformin 2021-0 Yes Univers ER 750 mg 2-01 ity of 24 hr 00:00: [place] tablet Medical Branch ramipriL 10 2020-0 Yes Univer s mg capsule 2-01 ity of 00:00: [place] [facility] fenofibrate 2021-0 Yes Univer s 145 mg 2-01 ity of tablet 00:00: [place] [facility] metformin 2020-0 Yes Univers ER 750 mg 2-01 ity of 24 hr 00:00: [place] tablet Medical Branch ramipriL 10 2020-0 Yes Univer s mg capsule 2- ity of 00:00: [place] [facility] fenofibrate 2020-0 Yes Univer s 145 mg 2- ity of tablet 00:00: [place] [facility] metformin 2020-0 Yes Univers ER 750 mg 2- ity of 24 hr 00:00: [place] tablet Medical Branch ramipriL 10 2020-0 Yes Univer s mg capsule 2- ity of 00:00: [facility] fenofibrate 2020-0 Yes Univer s 145 mg 2- ity of tablet 00:00: [facility] metformin 2020-0 Yes Univers ER 750 mg 2- ity of 24 hr 00:00: [facility] ramipriL 10 2020-0 Yes Univer s mg capsule 2- ity of 00:00: [place] [facility] metoprolol 2020-0 Yes Julio (LOPRESSOR) 1-27 College 50 MG 00:00: of tablet 00 Medicin e metoprolol 0 Yes Univers tartrate 50 1-27 ity of mg tablet 00:00: [place] [facility] metoprolol 2020-0 Yes Univers tartrate 50 1-27 ity of mg tablet 00:00: [facility] metoprolol 2020-0 Yes Univers tartrate 50 1-27 ity of mg tablet 00:00: [facility] metoprolol 2020-0 Yes Univers tartrate 50 1-27 ity of mg tablet 00:00: [place] [facility] metoprolol 2020-0 Yes Univers tartrate 50 1-27 ity of mg tablet 00:00: [place] [facility] metoprolol 2020-0 Yes Univers tartrate 50 1-27 ity of mg tablet 00:00: [place] [facility] metoprolol 2020-0 Yes Univers tartrate 50 1-27 ity of mg tablet 00:00: [place] [facility] metoprolol 2020-0 Yes Univers tartrate 50 1-27 ity of mg tablet 00:00: [place] [facility] metoprolol 2020-0 Yes Univers tartrate 50 1-27 ity of mg tablet 00:00: [place] [address] [facility] metoprolol 0 Yes Univers tartrate 50 1-27 ity of mg tablet 00:00: [place] [facility] metoprolol 2020-0 Yes Univers tartrate 50 1-27 ity of mg tablet 00:00: [place] [facility] metoprolol 2020-0 Yes Univers tartrate 50 1-27 ity of mg tablet 00:00: [place] [facility] metoprolol 2020-0 Yes Univers tartrate 50 1-27 ity of mg tablet 00:00: [place] [facility] metoprolol 2020-0 Yes Univers tartrate 50 1-27 ity of mg tablet 00:00: [place] [facility] metoprolol 0 Yes Univers tartrate 50 1-27 ity of mg tablet 00:00: [facility] metoprolol 0 Yes Univers tartrate 50 1-27 ity of mg tablet 00:00: [facility] metoprolol 2020-0 Yes Univers tartrate 50 1-27 ity of mg tablet 00:00: [facility] metoprolol 0 Yes Univers tartrate 50 1-27 ity of mg tablet 00:00: [facility] metoprolol 0 Yes Univers tartrate 50 1-27 ity of mg tablet 00:00: [place] [facility] metoprolol 2020-0 Yes Univers tartrate 50 1-27 ity of mg tablet 00:00: [facility] metoprolol 0 Yes Univers tartrate 50 1-27 ity of mg tablet 00:00: [facility] metoprolol 0 1- No Univer s tartrate 50 1-27 06-18 ity of mg tablet 00:00: 00:00 [place] 00 :00 [facility] metoprolol 0 1- No Univer s tartrate 50 1-27 06-18 ity of mg tablet 00:00: 00:00 [place] 00 :00 [facility] Vital Signs Vital Name Observation Time Observation Value Comments Source Systolic blood 2021-05-04 12:05:00 131 mm[Hg] Univer sity of pressure [facility] Diastolic blood 2021-05-04 12:05:00 88 mm[Hg] Unive rsity of pressure [facility] Heart rate 2021-05-04 12:05:00 69 /min [facility] Body temperature 2021-05-04 12:05:00 36.56 Analia Univ ersity of [facility] Respiratory rate 2021-05-04 12:05:00 16 /min Univ ersity [facility] Oxygen saturation in 2021-05-04 12:05:00 99 /min University of Arterial blood by [place] [facility] P[facility] oximetry Branch Body weight 2021-05-04 10:00:00 108.5 kg [facility] BMI 2021-05-04 10:00:00 33.38 kg/m2 [facility] Body height 2021-05-04 01:00:00 180.3 cm [facility] Systolic blood 2021-05-01 19:26:00 232 mm[Hg] Univer sity of pressure [facility] Diastolic blood 2021-05-01 19:26:00 114 mm[Hg] Unive rsity of pressure [facility] Heart rate 2021-05-01 19:26:00 90 /min [facility] Body temperature 2021-05-01 19:26:00 35.78 Analia Univ [facility] Respiratory rate 2021-05-01 19:26:00 19 /min Univ ers[facility] Body height 2021-05-01 19:26:00 180.3 cm [facility] Body weight 2021-05-01 19:26:00 110.179 kg [facility] BMI 2021-05-01 19:26:00 33.88 kg/m2 [facility] Oxygen saturation in 2021-05-01 19:26:00 98 /min University of Arterial blood by [facility] frances Pulse oximetry Branch Systolic blood 2021-04-10 18:33:00 212 mm[Hg] Univer sity of pressure [facility] Diastolic blood 2021-04-10 18:33:00 125 mm[Hg] Unive rsity of pressure [facility] Heart rate 2021-04-10 18:33:00 64 /min [facility]i [facility] Respiratory rate 2021-04-10 18:33:00 16 /min Univ ersity of [facility] Oxygen saturation in 2021-04-10 18:33:00 97 /min University of Arterial blood by [facility] Pulse oximetry Branch Systolic blood 2021-03-12 18:54:00 183 mm[Hg] Univer sity of pressure [facility] Diastolic blood 2021-03-12 18:54:00 81 mm[Hg] Unive rsity of pressure [facility] Heart rate 2021-03-12 18:54:00 66 /min Universi ty of [facility] Body height 2021-03-12 18:48:00 185.4 cm Universi ty of [facility] Body weight 2021-03-12 18:48:00 117.028 kg [facility] BMI 2021-03-12 18:48:00 34.04 kg/m2 Universi ty of [facility] Systolic blood 2021-02-27 19:36:00 144 mm[Hg] Univer sity of pressure [facility] Diastolic blood 2021-02-27 19:36:00 90 mm[Hg] Unive rsity of pressure [facility] Heart rate 2021-02-27 19:36:00 66 /min Universi ty of [place] [facility] Body height 2021-02-27 19:36:00 185.4 cm Universi ty of [place] [facility] Body weight 2021-02-27 19:36:00 113.399 kg [facility] BMI 2021-02-27 19:36:00 32.98 kg/m2 Universi ty of [facility] Branch Systolic blood 2021-02-05 18:28:00 196 mm[Hg] [facility] pressure Medicine Diastolic blood 2021-02-05 18:28:00 96 mm[Hg] [facility] of pressure Medicine Heart rate 2021-02-05 18:28:00 66 /min [facility] of Medicine Body height 2021-02-05 18:28:00 180.3 [facility] Body weight 2021-02-05 18:28:00 122.471 kg [facility] BMI 2021-02-05 18:28:00 37.66 kg/m2 [facility] Procedures Procedure Date / Time Performing Clinician Source Performed AUTHORIZATION FOR RELEASE 2021-05-24 05:01:00 Doctor Unassigned, [facility] [place] [facility] SCANNED LAB RESULTS 2021-05-10 05:01:00 [facility] MR BRAIN W WO CONTRAST 2021-05-09 16:39:21 [facility]da[facility]ovi [facility] NM BONE WHOLE BODY 2021-05-07 19:40:22 [facility] NM BONE WHOLE BODY 2021-05-07 19:40:22 [facility] TRANSTHORACIC ECHO (TTE) 2021-05-04 15:18:16 Austin Romero [facility] COMPLETE W/ CONTRAST [facility] CBC WITH DIFF 2021-05-04 11:09:00 Austin Romero [facility] MAGNESIUM 2021-05-04 11:07:00 Austin Romero [facility] BASIC METABOLIC PANEL 2021-05-04 11:07:00 Austin Romero [facility] (NA, K, CL, CO2, GLUCOSE, Medica l Branch BUN, CREATININE, CA) TROPONIN I 2021-05-04 00:34:00 Austin Romero [facility] LIPID PANEL ([id number])(TOTAL 2021-05-04 00:34:00 Austin Romero [facility] CHOLESTEROL, [facility] TRIGLYCERIDES, HDL) CT CHEST PULMONARY 2021-05-03 17:25:18 Demarco Herrera [facility] ANGIOGRAM Medical Branch XR CHEST 1 VW 2021-05-03 16:18:35 Javier Demarco [facility] COVID-19 (ID NOW RAPID 2021-05-03 16:18:00 Demarco Herrera [facility] TESTING) Medical Branch LAB ONLY COVID 2021-05-03 16:18:00 Javier Demarco [facility] INTERPRETATION [facility] TROPONIN I 2021-05-03 16:03:00 Javier Demarco [facility] HEPATIC FUNCTION PANEL 2021-05-03 16:03:00 Demarco Herrera [facility] ([id number]) (ALB,T.PRO,BILI Medical Branch T,BU/BC,ALT,AST,ALK PHOS) BASIC METABOLIC PANEL 2021-05-03 16:03:00 Demarco Herrera [facility] (NA, K, CL, CO2, GLUCOSE, Medica l Branch BUN, CREATININE, CA) LIPID PANEL (00705)(TOTAL 2021-05-03 16:03:00 Ramu Taylor [facility] CHOLESTEROL, [facility] TRIGLYCERIDES, HDL) CBC WITH DIFF 2021-05-03 16:03:00 Demarco Herrera [facility] GLYCOSYLATED HEMOGLOBIN 2021-05-03 16:03:00 Ramu Taylor [facility] (A1C) [facility] PROTHROMBIN TIME / INR 2021-05-03 16:03:00 Javier Demarco [facility] ACTIVATED PARTIAL 2021-05-03 16:03:00 Demarco Herrera [facility] THRMPLAS TATUM [facility] N-TERMINAL PRO-BNP 2021-05-03 16:03:00 Demarco Herrera [facility] HB ECG ROUTINE & RHYTHM 2021-05-03 15:58:19 Demarco Herrera [facility] STRIP [facility] CONSENT/REFUSAL FOR 2021-05-03 15:44:24 Doctor Krystian, [facility] DIAGNOSIS AND TREATMENT [place] [facility] COVID-19 (ID NOW RAPID 2021-04-30 19:17:00 Maddy Gentile [facility] TESTING) [facility] IR BIOPSY MUSCLE 2021-04-10 19:39:16 Aimee gallagher [facility] PERCUTANEOUS WITH Chloe Bari [facility] ULTRASOUND CYTO ORGAN ASPIRATION-FNA 2021-04-10 19:23:00 Jesus Lind [facility] CT ABDOMEN PELVIS W 2021-03-15 18:08:35 Corey Meade [facility] CONTRAST [facility] CT THORAX W CONTRAST 2021-03-15 18:05:16 Corey Meade [facility] NOTICE OF PRIVACY 2021-03-15 17:17:11 Doctor Krystian, [facility] PRACTICES [place] [facility] CONSENT/REFUSAL FOR 2021-03-15 17:16:56 Doctor Krystian, [facility] DIAGNOSIS AND TREATMENT [place] [facility] ASSIGNMENT OF BENEFITS 2021-03-15 17:16:23 Doctor Unassigned, [facility] [place] [facility] EXTERNAL PROVIDER RECORDS 2021-03-08 05:01:00 Doctor Unassigned, [facility] [place] [facility] Plan of Care Planned Activity Planned Date Details Comments Source Future Scheduled ORT - XR HIP LEFT 2V Ordered: [employer] [facility] (CHARGE ONLY) [code = 02/05/2021 of Med icine 20034] Future Scheduled ORT - XR PELVIS AP Ordered: [employer] [facility] (CHARGE ONLY) [code = 02/05/2021 of Med icine 82527] Future Scheduled Screening for malignant [facility] Test neoplasm of colon of Medicin e (procedure) [code = 401783423] Future Scheduled TETANUS SHOT (ADULT) [employer] [facility] [employer] [facility] [code = TETANUS SHOT of Medi cine (ADULT)] Future Scheduled COVID-19 Vaccine (1) [employer] [facility] [employer] [facility] [code = COVID-19 Vaccine of Medicine (1)] Future Scheduled BMI FOLLOW UP PLAN [code Julio [employer] Test = BMI FOLLOW UP PLAN] of Med icine Future Scheduled Hepatitis C screening [facility] [employer] Test (procedure) [code = of Medic ine 988733724] Future Scheduled Human immunodeficiency [employer] [facility] virus screening of Medicine (procedure) [code = 092690622] Future Scheduled ZOSTER VACCINE (1 of 2) [facility] Test [code = ZOSTER VACCINE of [...] Type Clinicians Facility Department ID 2021-09-17 Emergency [facility] [id number] [facility] 2021-04-05 Outpatient LAO, [facility] [id number] [place] 15:40:59 [facility] 2021-03-02 Outpatient SYSTEM, YANDEL HUMPHRIES [id number] 14:18:22 PROVIDER Domingo rowell 2022-01-25 2022-01-25 Laboratory Only, Adc Test [facility] 1.2.840. [id number] Univers 13:00:00 13:15:00 Only Dmitri Serrato [id number] [facility] [id number] [place] [facility] [id number] [address] 2022-01-25 2022-01-25 Outpatient R [facility] [id number] Univers 13:00:00 13:00:00 [id number] [facility] 2022-01-25 2022-01-25 Outpatient R AMA [facility] [id number] Univers 13:00:00 13:00:00 DMITRI [facility] 2022-01-23 2022-01-23 Outpatient AMIRA [facility] [id number] [place] 00:00:00 00:00:00 JOANN 281 Method i 2022-01-21 2022-01-21 Outpatient KRISTIN [facility] [id number] [place] 00:00:00 00:00:00 ANDRE 963 Method i 2022-01-21 2022-01-21 Outpatient KRISTIN [facility] [id number] [place] 00:00:00 00:00:00 ANDRE 941 Method i 2021-12-31 2021-12-31 Outpatient FOSTER, [facility] [id number] [place] 00:00:00 00:00:00 ANDRE 139 Method i 2021-12-31 2021-12-31 Outpatient [facility] [id number] [place] 00:00:00 00:00:00 573 Method i 2021-12-31 2021-12-31 Outpatient [facility] [id number] [place] 00:00:00 00:00:00 535 Method i 2021-12-31 2021-12-31 Outpatient [facility] [id number] [place] 00:00:00 00:00:00 544 Method i 2021-08-28 2021-08-28 Outpatient Balaji PERDUE [facility] [id number] Univers 10:30:00 10:30:00 SYLVIA [id number] cece o leelee [facility] 2021-08-23 2021-08-23 Outpatient R MARCO [facility] [id number] Univers 08:00:00 08:00:00 GUILHERME [id number] ity [facility] 2021-06-22 2021-06-22 Outpatient R DESHAUNNADIASorin [facility] [id number] Univers 14:00:00 14:00:00 EDOUARD MEADE [id number] i ty of [facility] 2021-06-22 2021-06-22 Outpatient R DESHAUNNADIASorin [facility] [id number] Univers 14:00:00 14:00:00 EDOUARD MEADE i ty [facility] 2021-05-24 2021-05-24 Orders Doctor JUN 1Danis2.840.114 [id number] Univers 00:00:00 00:00:00 Only Unassigned, TALHA [id number] ity of [place] [facility] 4.2.7.2.686 Jese as [id number] [address] 2021-05-22 2021-05-22 Outpatient R [facility] [id number] Univers 13:00:00 13:00:00 [id number] ity [facility] 2021-05-22 2021-05-22 [facility] [id number] Univers 13:00:00 13:00:00 MADDY [facility] 2021-05-22 2021-05-22 Outpatient R BRIDGETT [facility] [id number] Univers 11:00:00 11:00:00 JOVANNI [facility] 2021-05-22 2021-05-22 Outpatient R BRIDGETT [facility] [id number] Univers 10:00:00 10:00:00 JOVANNI [facility] 2021-05-22 2021-05-22 [facility] [id number] Univers 10:00:00 10:00:00 JOVANNI [facility] 2021-05-10 2021-05-10 Orders Doctor JUN Jaquez.2.840.114 [id number] Univers 00:00:00 00:00:00 Only Unassigned, TALHA [id number] ity of [place] [facility] 4.2.7.2.686 Jese as [id number] [address] 2021-05-09 2021-05-09 [facility] 1.2.840.114 [id number] Univers 10:25:57 23:59:00 Encounter Maddy Jarod Ma [id number] ity of [place] 4.2.7.2.686 [facility] [id number] [facility] 804 Branch 2021-05-09 2021-05-09 [facility] [id number] Univers 11:00:00 11:00:00 MADDY [id number] ity [facility] 2021-05-09 2021-05-09 [facility] [id number] Univers 00:00:00 00:00:00 MADDY ity [facility] 2021-05-07 2021-05-07 [facility] 1.2.840.114 [id number] Univers 10:45:56 23:59:00 Encounter Maddy Ma [id number] ity of [place] 4.2.7.[address] [place] [address] [id number] [facility] 2021-05-07 2021-05-07 [facility] 1.2.840.114 [id number] Univers 10:15:00 10:44:00 Encounter Maddy Ma [id number] ity of [place] 4.2.7.2.686 [facility] [id number] [facility] 805 Branch 2021-05-07 2021-05-07 [facility] [id number] Univers 10:15:00 10:15:00 MADDY ity [facility] 2021-05-07 2021-05-07 Transition Linh Maciassorin 1.2.840.114 [id number] Univers 00:00:00 00:00:00 of Warren Cruz 350.1.13.10 it y of [place] 4.2.7.2.686 [facility] [id number] [facility] 403 Branch 2021-05-03 2021-05-04 Emergency Demarco Herrera [facility] 1.2.840. 114 [id number] Univers 10:50:00 12:33:00 Austin Romero 350.1.13.10 ity of [place] 4.2.7.2.686 [facility] [id number] [facility] 080 Branch 2021-05-03 2021-05-03 Orders Doctor JUN 1.2.840.114 [id number] Univers 00:00:00 00:00:00 Only Unassigned, TALHA 350.1.13.10 ity of [place] [facility] 4.2.7.2.686 Jese as [phone] [facility] 009 Branch 2021-05-01 2021-05-01 Office Jovi Varghese 1.2.840. 114 [id number] Univers 13:32:13 14:32:13 Visit Maddy Gentile 350.1.13.10 ity of [facility] 4.2.7.2.686 Jese as [id number] [facility] 0[facility] 2021-05-01 2021-05-01 Outpatient R [facility] [id number] Univers 14:00:00 14:00:00 [id number] ity [facility] 2021-05-01 2021-05-01 Outpatient R SEFERINO [facility] [id number] Univers 14:00:00 14:00:00 [facility] 2021-04-30 2021-04-30 Laboratory Only, Adc Test [facility] 1.2.840. 114 [id number] Univers 13:59:04 14:14:04 Only Maddy Gentile 350.1.13.10 ity of [place] 4.2.7.2.686 [facility] [id number] [facility] 353 Branch 2021-04-30 2021-04-30 Outpatient R [facility] [id number] Univers 14:00:00 14:00:00 ity [facility] 2021-04-30 2021-04-30 Outpatient R [facility] [id number] Univers 11:00:00 11:00:00 [id number] ity [facility] 2021-04-25 2021-04-25 Radhames Moura [facility] 1.2.937.368 [id number] Univers 00:00:00 00:00:00 Management Roshan Robertson [facility] 350.1.13.10 ity of Cancer 4.2.7.2.686 [facility] Center - [phone] Med ical [facility] 188 Branch 2021-04-23 2021-04-23 Telephone NARESH Ramírez 1.2.840.114 [id number] Univers 00:00:00 00:00:00 Matthew HEALTH 350.1.13.10 i ty of [facility] 4.2.7.2.686 [facility] [id number] [facility] 188 Branch 2021-04-10 2021-04-10 [facility] 1.2.840.114 [id number] Univers 13:07:15 23:59:00 Encounter Matthew [facility] 350.1.13.[address] [facility] 4.2.7.2.686 [facility] AT [id number] Il aurelianojen TATIANNACarol 803 [facility] 2021-04-10 2021-04-10 Outpatient Balaji RAMÍREZ [facility] [id number] Univers 14:00:00 14:00:00 MATTHEW [id number] [facility] 2021-04-10 2021-04-10 Outpatient Balaji RAMÍREZ [facility] [id number] Univers 00:00:00 00:00:00 MATTHEW [facility] 2021-04-05 2021-04-05 Telephone [facility] 1.2.306.919 [id number] Univers 00:00:00 00:00:00 Guilherme BARRONPEC 350.1.13.10 ity of [place] 4.2.7.2.686 [facility] [id number] [facility] AND PIA 085 Branch [facility] 2021-04-04 2021-04-04 Outpatient Balaji RAMÍREZ [facility] [id number] Univers 16:15:00 16:15:00 MATTHEW [id number] [facility] 2021-04-04 2021-04-04 Outpatient Balaji RAMÍREZ [facility] [id number] Univers 16:15:00 16:15:00 MATTHEW itcarol [facility] 2021-04-02 2021-04-02 Telephone [facility] 1.2.862.305 [id number] Univers 00:00:00 00:00:00 Matthew [place] 350.1.13.10 i ty of [place] [id number] [address] 2021-04-02 2021-04-02 [facility] 1.2.770.290 [id number] Univers 00:00:00 00:00:00 Matthew [place] 350.1.13.10 i ty of [place].2.[place] [id number] [address] 2021-03-29 2021-03-29 [facility] 1.2.840.114 [id number] Univers 12:31:22 23:59:00 Encounter Matthew SPECIALTY 350.1.13.10 ity of [place]2.7.2.[place] AT [phone] [place] aureliano[address] 2021-03-29 2021-03-29 [facility] [id number] Univers 14:30:00 14:30:00 MATTHEW [id number] [facility] 2021-03-29 2021-03-29 [facility] 1.2.840.114 [id number] Univers 12:30:43 12:30:43 Encounter Matthew SPECIALTY 350.1.13.10 ity of [place]2.7.2.[place] [id number] [address] 2021-03-29 2021-03-29 [facility] 1.2.840.114 [id number] Univers 12:28:47 12:29:00 Encounter Matthew SPECIALTY 350.1.13.10 ity of [place].2.[place] [id number] [place] dic[address] 2021-03-29 2021-03-29 [facility] [id number] Univers 00:00:00 00:00:00 MATTHEW ity [facility] 2021-03-21 2021-03-21 Outpatient RHYS [facility] [id number] Univers 15:15:00 15:15:00 MATTHEW [id number] ity [facility] 2021-03-15 2021-03-15 [facility] 1.2.840.114 [id number] Univers 12:29:31 23:59:00 Encounter Matthew [place] 350.1.13.10 ity [facility] 4.2.7.2.686 [facility] [id number] [address] 2021-03-15 2021-03-15 [facility] [id number] Univers 15:30:00 15:30:00 MATTHEW [id number] ity [facility] 2021-03-15 2021-03-15 [facility] 1.2.840.114 [id number] Univers 12:20:40 12:28:00 Encounter Matthew [place] 350.1.13.10 ity [facility] 4.2.7.2.686 [facility] [id number] [address] 2021-03-15 2021-03-15 Outpatient Balaji [facility] [id number] Univers 00:00:00 00:00:00 MATTHEW [facility] 2021-03-12 2021-03-12 Office [facility] [id number] [id number] Univers 13:46:55 14:01:55 Visit [facility] 350.1.13.10 it of Surgical 4.2.7.2.686 [facility] [id number] Il dical es 198 [facility] 2021-03-12 2021-03-12 Outpatient Balaji RAMÍREZ [facility] [id number] Univers 08:30:00 08:30:00 MATTHEW [id number] ity [facility] 2021-03-12 2021-03-12 [facility] [id number] Univers 08:30:00 08:30:00 [facility] 2021-03-08 2021-03-08 Orders Doctor JUN 1.2.840.114 [id number] Univers 00:00:00 00:00:00 Only Unassigned, TALHA 350.1.13.10 ity of [place] [facility] 4.2.7.2.686 Jese as [id number] [facility] 009 Branch 2021-03-01 2021-03-01 Outpatient R ANTONETTE, [facility] [id number] Univers 13:00:00 13:00:00 OTIS [id number] [facility] 2021-02-27 2021-02-27 Outpatient R MARIN [facility] [id number] Univers 15:00:00 15:00:00 CONRADO [facility] 2021-02-27 2021-02-27 Office Marin [facility] 1.2.840.114 [id number] Univers 14:27:47 14:42:47 Visit Conrado [facility] 350.1.13.10 it y of Surgical 4.2.7.2.686 Jese as Specialti [id number] Il dical es 198 [facility] 2021-02-05 2021-02-05 Office XANDER Honeycutt 1.2.840.114 [id number] [facility] 12:35:44 14:38:10 Visit Ramos AMBULATOR 350.1.13.21 College Y 0.2.7.2.686 of [id number] [facility] 600 e Results Test Description Test Test Results Result Source Time Comments Comments MR BRAIN W WO 2021-04 No acute intracranial [facility] CONTRAST -23 findings or evidence of o f [place] 16:58:3 metastasis. A small Medic al 0 [...] degradation is seen on the current exam. [facility], Radiant Results Inft User - 05/09/2021 11:59 [...] with theabove report. LAB ONLY COVID 2021-04 [facility] INTERPRETATION -18 InterpretationInterpretatio [facility] 15:18:4 n/Recommendations: Medica l 4 Molecular NAAT [...] COVID-19 testing the patient has had at [facility], including molecular NAAT testing (more commonly known as PCR testing and Rapid ID Now testing) and antibody testing. It does not take into account any testing that a patient has had outside of the [facility] medical record. [facility] LABORATORY SERVICESCOVID IdhnbxqJOIF-YwU-4 Rapid ID NOW (no units) ? ? Date ? Value ? 05/03/2021 ? Not Detected ? ? ? 04/30/2021 ? Not Detected ? [facility] LABORATORY SERVICES CBC WITH DIFF 2021-05-04 12:44:08 [...] 34.9 g/dL 31.2-35.0 RDW-SD (test code = 05928-1) 41.5 fL 38.5-51.6 RDW-CV (test code = 788-0) 12.6 % 12.1-15.4 PLT (test code = 777-3) See_Comment [Au tomated message] The system which ge nerated this result transmit bernard reference range: 150 - 32 8 10*3/?L. The reference range was not used to interpret th is result as normal/abnormal . MPV (test code = 96270-7) 9.2 fL 9.8-13.0 L NRBC/100 WBC (test code = See_Comment [ Automated message] The 9451647612) system which ge nerated this result transmit bernard reference range: 0.0 - 10 .0 /100 WBCs. The reference r silva was not used to interpr et this result as normal/abnor mal. NRBC x10^3 (test code = <0.01 See_Comment [Au tomated message] The 4101445810) system which ge nerated this result transmit bernard reference range: 10*3/?L. The reference range was not u sed to interpret this result as normal/abnormal . GRAN MAT (NEUT) % (test code 42.5 % = 770-8) IMM GRAN % (test code = 0.00 % 2242141835) LYMPH % (test code = 736-9) 35.4 % MONO % (test code = 5905-5) 18.0 % EOS % (test code = 713-8) 3.3 % BASO % (test code = 706-2) 0.8 % GRAN MAT x10^3(ANC) (test 1.56 10*3/uL 1.99-6.95 L code = 2988018603) IMM GRAN x10^3 (test code = <0.03 0.00-0.06 4140138222) LYMPH x10^3 (test code = 1.30 10*3/uL 1.09-3.23 731-0) MONO x10^3 (test code = 0.66 10*3/uL 0.36-1.02 742-7) EOS x10^3 (test code = 0.12 10*3/uL 0.06-0.53 711-2) BASO x10^3 (test code = 0.03 10*3/uL 0.01-0.09 704-7) Lab Interpretation (test Abnormal code = 53880-4) [facility]20[facility] 12:04:44 Test Item Value Reference Range Interpretation Comments MAGNESIUM (test code = 5821832505) 1.5 mg/dL 1.7-2.4 L Lab Interpretation (test code = Abnormal 99057-5) [facility] (NA, K, CL, CO2, GLUCOSE, BUN, CREATININE, CA)2021-05-04 12:04:29 Test Item Value Reference Range Interpretation Comments NA (test code = 137 mmol/L 135-145 1626567786) K (test code = 3.8 mmol/L 3.5-5.0 0894176285) CL (test code = 105 mmol/L 98-108 0633509603) CO2 TOTAL (test code = 27 mmol/L 23-31 6772931282) AGAP (test code = 2-16 9201628044) BUN (test code = 13 mg/dL 7-23 8492264925) GLUCOSE (test code = 101 mg/dL 70-110 2388821708) CREATININE (test code = 0.67 mg/dL 0.60-1.25 9350607011) CALCIUM (test code = 10.7 mg/dL 8.6-10.6 H 0750411291) eGFR (test code = mL/min/1.73m2 6992175002) VICENTE (test code = VICENTE) Association of [...] tests). Lab Interpretation Abnormal (test code = 96162-4) [facility] CampusYENIPRISMA [facility]ITALZAHRA [id number] 01:31:30 Test Item Value Reference Range Interpretation Comments TROPONIN I (test 0.009 ng/mL See_Comment [Automated code = 7609251071) message] The system which generated this result [...] ? Lab Interpretation Normal (test code = 13536-3) [facility] CampusLIPID PANEL (29693)(TOTAL CHOLESTEROL, TRIGLYCERIDES, HDL)2021-05-04 01:19:31 Test Item Value Reference Range Interpretation Comments CHOL (test code = 147 mg/dL 120-200 8292827049) HDL (test code = 37 mg/dL >40 L 1883343326) HDLC RATIO (test code = See_Comment [Au tomated message] 8621002520) The system [employer] generated this result transmit bernard reference range : <=5.0. The refe rence range was not u sed to interpret th is result as normal/abnormal . TRIG (test code = 140 mg/dL 30-170 0092956560) LDL CHOL (test code = 82 mg/dL See_Comment [Auto mated message] 33938-8) The system [employer] generated this result transmit bernard reference range : <=160. The refe rence range was not u sed to interpret th is result as normal/abnormal . VLDL (test code = 28 mg/dL 5-60 2535414107) Lab Interpretation (test Abnormal code = 42021-2) [facility] CampusGLYCOSYLATED HEMOGLOBIN (A1C)2021-05-03 23:30:45 Test Item Value Reference Range Interpretation Comments HGB A1C (test code = 4.9 % 4.0-5.7 4548-4) VICENTE (test code = VICENTE) Reference RangesNormal: <5.7%Prediabetes: 5.7 - 6.4%Diabetes: > 6.5% Lab Interpretation (test Normal code = 97588-0) [facility] CampusLIPID PANEL (78576)(TOTAL CHOLESTEROL, TRIGLYCERIDES, HDL)2021-05-03 23:08:32 Test Item Value Reference Range Interpretation Comments CHOL (test code = 174 mg/dL 120-200 0667429916) HDL (test code = 42 mg/dL >40 7566537290) HDLC RATIO (test code = See_Comment [Au tomated message] 6581906309) The system [employer] generated this result transmit bernard reference range : <=5.0. The refe rence range was not u sed to interpret th is result as normal/abnormal . TRIG (test code = 154 mg/dL 30-170 4782133555) LDL CHOL (test code = 101 mg/dL See_Comment [Auto mated message] 69408-1) The system [employer] generated this result transmit bernard reference range : <=160. The refe rence range was not u sed to interpret th is result as normal/abnormal . VLDL (test code = 31 mg/dL 5-60 1758932109) Lab Interpretation (test Normal code = 14622-3) [facility]COVID[facility] (ID NOW RAPID TESTING)2021-05-03 17:45:21 Test Item Value Reference Range Interpretation Comments SARS-CoV-2 Rapid ID NOW Not Detected Not Detected (test code = 41488-7) VICENTE (test code = VICENTE) ID NOW COVID-19 Assay is an isothermal nucleic acid amplification test intended for the qualitative detection of nucleic acid from SARS-CoV-2 viral RNA in nasopharyngeal (RN CVOR) specimens. It is used under Emergency Use [...] indicated. Lab Interpretation Normal (test code = 96780-4) [facility] CampusCT CHEST PULMONARY [id number] 17:36:29HISTORY: Rule out out P.E. TECHNIQUE: Contrast-enhanced [...] including calcification noted inleft main coronary artery. [facility], Radiant Results Inft User - 05/03/2021 12:37 [...] atherosclerosis including calcification noted inleft main coronary artery.[facility] CampusTroponin I 2021-05-03 16:38:15 Test Item Value Reference Range Interpretation Comments TROPONIN I (test 0.012 ng/mL See_Comment [Automated code = 3694649726) message] The system which generated this result [...] ? Lab Interpretation Normal (test code = 98569-3) [facility] CampusN-TERMINAL [id number] 16:34:52 Test Item Value Reference Range Interpretation Comments NT-proBNP (test code 226 pg/mL See_Comment H [Autom ated = 4668019012) message] The system which generated this result transmitted reference range : <=125. The reference range was not used to interpret this result as normal/abnormal . VICENTE (test code = VICENTE) Biotin has been reported to cause a negative bias, interpret results relative to patient's use of biotin. Lab Interpretation Abnormal (test code = 13748-4) [facility] Met[facility] Panel (NA, K, CL, CO2, GLUCOSE, BUN, CREATININE, CA)2021-05-03 16:28:54 Test Item Value Reference Range Interpretation Comments NA (test code = 137 mmol/L 135-145 9202793294) K (test code = 3.7 mmol/L 3.5-5.0 7738605550) CL (test code = 104 mmol/L 98-108 5085269519) CO2 TOTAL (test code = 23 mmol/L 23-31 6661079797) AGAP (test code = 2-16 3062924697) BUN (test code = 13 mg/dL 7-23 5241295901) GLUCOSE (test code = 123 mg/dL 70-110 H 4118701226) CREATININE (test code = 0.82 mg/dL 0.60-1.25 6317367234) CALCIUM (test code = 12.0 mg/dL 8.6-10.6 H 0324756087) eGFR (test code = mL/min/1.73m2 2108193416) VICENTE (test code = VICENTE) Association of [...] tests). Lab Interpretation Abnormal (test code = 28141-4) [facility] CampusHepatic Function Panel (ALB, T.PRO, BILI T, BU/BC, ALT, AST, ALK PHOS)2021-05-03 16:28:14 Test Item Value Reference Range Interpretation Comments TOTAL BILI (test code = 9676555609) 1.2 mg/dL 0.1-1.1 H BILI UNCON (test code = 9867102057) 1.0 mg/dL 0.1-1.1 BILI CONJ (test code = 4732426954) 0.0 mg/dL 0.0-0.3 T PROTEIN (test code = 0092658342) 8.2 g/dL 6.3-8.2 ALBUMIN (test code = 2343773272) 4.6 g/dL 3.5-5.0 ALK PHOS (test code = 9072938258) 93 U/L 34-122 ALTv (test code = 1742-6) 41 U/L 5-50 AST(SGOT) (test code = 1666471068) 44 U/L 13-40 H Lab Interpretation (test code = Abnormal 67862-9) [facility] CampusaPTT2021-06-17 16:27:33 Test Item Value Reference Range Interpretation Comments APTT Patient (test See_Comment [Automat ed code = 3173-2) message] The system which generated this result transmitted reference range : 23 - 38 Seconds . The reference range was not used to interpr et this result as normal/abnormal . VICENTE (test code = VICENTE) The [facility] patient population mean normal value for aPTT is 30 seconds. Lab Interpretation Normal (test code = 52380-2) [facility] CampusProthrombin Time (PT) / [id number] 16:25:10 Test Item Value Reference Range Interpretation [...] tions. Lab Interpretation (test Normal code = 66152-0) [facility] 1 [id number] 16:19:49HISTORY: Chest pain. TECHNIQUE: Portable AP erect [...] humerus.CONCLUSIONS: No signs of acute cardiopulmonary disease. [facility] with Tjcxtkvziasn1898-08-24 16:11:47 Test Item Value Reference Range Interpretation Comments WBC (test code = See_Comment [Automated 1090-2) message] The sy stem which generated this result transmitted reference range : 4.20 - 10.70 10*3/?L. The reference range was not used to interpret this result as normal/abnormal . RBC (test code = See_Comment [Automated 479-8) message] The sy stem which generated this [...] RDW-SD (test code = 40.7 fL 38.5-51.6 05521-8) RDW-CV (test code = 12.3 % 12.1-15.4 788-0) PLT (test code = See_Comment [Automated 777-3) message] The sy stem which generated this result transmitted reference range : 150 - 328 10*3/ ?L. The reference r silva was not used to interpret this result as normal/abnormal . MPV (test code = 9.1 fL 9.8-13.0 L 93037-4) NRBC/100 WBC (test See_Comment [Automat ed code = 1771549933) message] The system which generated this result transmitted reference range : 0.0 - 10.0 /100 WBCs. The refer ence range was not u sed to interpret th is result as normal/abnormal . NRBC x10^3 (test code <0.01 See_Comment [Auto mated = 0999534160) message] The s ystem which generated this result transmitted reference range : 10*3/?L. The reference range was not used to interpret this result as normal/abnormal . GRAN MAT (NEUT) % 61.5 % (test code = 770-8) IMM GRAN % (test code 0.20 % = 9517711254) LYMPH % (test code = 18.0 % 736-9) MONO % (test code = 18.0 % 5905-5) EOS % (test code = 1.7 % 713-8) BASO % (test code = 0.6 % 706-2) GRAN MAT x10^3(ANC) 2.96 10*3/uL 1.99-6.95 (test code = 5465206298) IMM GRAN x10^3 (test <0.03 0.00-0.06 code = 4452688711) LYMPH x10^3 (test code 0.87 10*3/uL 1.09-3.23 L = 731-0) MONO x10^3 (test code 0.87 10*3/uL 0.36-1.02 = 742-7) EOS x10^3 (test code = 0.08 10*3/uL 0.06-0.53 711-2) BASO x10^3 (test code 0.03 10*3/uL 0.01-0.09 = 704-7) Lab Interpretation Abnormal (test code = 83093-0) [facility] CampusCOVID-19 (ID NOW RAPID TESTING)2021-04-30 19:37:46 Test Item Value Reference Range Interpretation Comments SARS-CoV-2 Rapid ID NOW Not Detected Not Detected (test code = 37354-6) VICENTE (test code = VICENTE) ID NOW COVID-19 Assay is an isothermal nucleic acid amplification test intended for the qualitative detection of nucleic acid from SARS-CoV-2 viral RNA in nasopharyngeal (RN CVOR) specimens. It is used under Emergency Use [...] indicated. Lab Interpretation Normal (test code = 39481-0) [facility] CampusCYTO ORGAN [id number]-[id number] 15:11:44 Test Item Value Reference Range Interpretation Comments Case Report (test FNA Cytology ? code = 5749047597) ?Case: [id number] ?Authorizing Provider: ?Jesus Lind MD ? ? Collected: ? 04/10/2021 1423 ?Ordering Location: ? ? [facility] ? ?Received: ?04/10/2021 1445 ? [facility] ? [facility] ?Specimen: ? ?SOFT TISSUE, OTHER, FOREARM, RIGHT; ULTRASOUND (US) IMAGE-GUIDED FINE NEEDLE ? ASPIRATION ? Final Diagnosis (test a7lvsCWkETJaw7fwGBMynWXa code = 1575037124) ZzEwMzNcZnRuYmpcdWMxIHtc cnRmMVxlcGljOTQwMlxhbnNp MHPqsUFiJ3XosjdtIEwhLR1k ZJ0itVihqCOacZTgAATsZpTa e9let344bVUnp4hcVECRoyhv aTm7yVeiV45dw3D7GgdoH20e sYBtLQO8XEQxSZLemMCgXUWs GEO7NEMqkBIkQ7zlVHRyPR7j gaglAQkmLNqyLDZzvUH1XNZp dKLpX1MdGMKuINvlSHTjskd3 XqTgOh3kuUNzbTyoAUzyHOBs XHBsYWluXGJcZnMyMCBBLiAg K93JUXCEIKJTIWSlYZ3ZQVEQ VCFBZ0PDYOCCFXUOI9fFCjYE FGEHXGFVGG6EXOpPFjmxNM8M D6CtQ8NNEMGMRSLYWiDcIvHD YSeROKDNEOdIXLNHD54iGK4N IENPUkUgQklPUFNZXHBhciAg VQRdNK1aB7LPTR7JIZEhE6LC XIPXJNRLOE9LEAKbSE7AFTUX JHAWLIVxWKwZKGGiP65JTMLU QLizNUBuan60DCT0IfIvr0X1 SUXeUmHqIWEpDT2riWecJAEo BV5eOKNiV7bdjC7wlea9LrMa JZTcCrY6EWWienM1Mvm1LDTh XFlwp6ezl5TdX2JeiQOcwNp9 o8wmRDOyAfQ0rYTrWHoqT2hx tkDvjNMaBQCgKJd8nVyiPeGx DYTjt1nogzWlUmUdERNoKJBt FNOkwUkgbrh4zX16CORarG7k lITePXdxefEkMpN5NQntWKMg YfS5FRVubJJmAGXdA4vnEXSd QKqtGVRoDFjnfHUoDXF0kNxe z2J8jBKmrAWxkHesLeTxKdBd LUMYk7JsRTn3ySfeL2RhPALq WdO7cDWmVNNzJGjaARBrSORd czV3bU74DIdgtuR6cKYbp7Xp h47iw293sD8azCIoXUA6MCSt QRJeqJMbIRCxIHJ3MLOcuRHv C8cxHQVoIC6qwquzLSggEOwd ZPHcpJD6JFIccXTeD4JnDZDl BYgcXPKgowt2YuWbYc8diUFq jJlfAJazo2fyt6vphWHgKnk4 JWZrTnVuThegBQnmp0Pne6tr PPJxfv7sYKA0zPRwaByhf8J5 bGUxXGRudGJsbnNiZGJcZmV0 SLkwXH8kxl51TVKzTVU7cc2x vUWpzPxdtbWqfGJcYJfrZ5Fu KUHle047KIBnB7MrFNPxe8Z1 icXzEaScGJFjmKP9jeR1IFKv BQi5uEPegjL1epHcsCIoH0sz nX4nCKXaAN6tiwbkz8tdTFis ICzgFNCtrYK8uzS2PJCebFJz T1FgmL0kDLVfSTpfUYEtpyv6 BkVzRc8vsRFrqObcMTzoVjlb YWdlXHBnbmNvbnRccGduZGVj XHBsYWluXHBsYWluXGYwXGZz VgHgzDpcgUpesZ7aWfBiLkXo NHppXE7zTMBnW5rnvHCyANGx LFPoX1leNwZgdF6wsIniDEhe ZjJcZnMyMFxwYXIgSSBoYXZl ULHqqoBluhVnlSntvvG2jAW6 UGIyGHwhGBXtAFEbjFZjao0b xBsqPEFiDG6kUERgttPzOKax zGcqEIckMOQ6PLYmpWJoxQRk bWFkZSBieSByZXNpZGVudHMs VDZsnWply4Tzl8XqbTX8fW3f r6orr9XyYAZnvVP8WG72mkR1 xN5sYZNgOJ1xZGUdUL9urEPc zXClQINzd46mrXaigxRwVDCg cnQuXHBsYWluXGYyXGZzMjhc bGFuZzEwMzNcaGljaFxmMlxk AjTfBOUtQEiyK5icZsIrImIp LOvdMYU2qI== Final Diagnosis w5wheIJzFLPncHN4MMQmXTJt Comment (test code = u0rul1QdzVFckILtOEhapECj 2546653315) fgQqtx73pDD7cI84HX5vQQQx AhI6NMHigaJ7Fuh7KENkDDLa lMOsK806i8zbh3lxfkDeoKS2 qNeoAXMphlooZsE5RIxcLOQr ohadPEb1RKiiSVXymKH4BFTy oFMmI4DyQOApVM2uniq2TZE1 KVpqYGTnVtA3GWQitZXzINNb sFppHYjge035LCT3RxJrODTf odUza1zyQfQcn0vruIv4LIve bGFpblxmczIwIFRoZSBzbWVh ppKmq9hvmnWmTOjjV91fqeQb H2BxcYCizE3yeJbdGWZnH7hk kt40tgUun8OcPZC4qjQxutLq ryDerv8zwCWkQOQNtRZfzGKf jPslAP31CUNdcWokZMPrpv0g i8kkPCLcESAfQUAcdE4hlJEb X8JvtYZtHTAfOODvrT02XXZt pSIae5QfJYKvCpZkcfRtbRaq xRijwdvde4f5sQNgnUGzyBpk c55jl8CzPHVosex0JPAle96q v3t5nFJue50rRXIxpL3orXvy CrLyoiLieAKzLSc5fLDdOQTl bmxhcmdlZCwgaHlwZXJjaHJv bTP1gZKfqbRrjUSeXtZGlWDj O8QvzACyzN3appSuzpOyN11u LRHwpR3ab3nqx2sln7YmmLVl lOxeQS46VOAgoUhtBTiaVUIi EDO3fiH6zBZrXMKry71gfEM0 YIDmfnHncq7psOWfHGQhcogf YLKjr3xaXFDwxGYecURkNKpb CTVpyDrma6hwOiXrbG37mx4e fTGxarRqg9KiFJDvPNObh7Qv PIStr25lFushW6qjTOZul3b7 zSF3nCXsIp6bvN48nH8bZZSu o6XyiGT9EAGdmklpSAGcYPWK NZVbJtH8IENsw9s2fSNgCLTp vuTmIF3dfQFjUoDMn7NprBy6 WU2aNXQnradmOHUnFN0mO1he NzogTmVnYXRpdmUuIFxwYXIg ICAtIENLIDIwOiBOZWdhdGl2 OL7zIARlkdZwFG2dTFPPDAH5 YA0mS5X1gXUvMtPiqQLeHLZo aiGIgMSjACBcZCL4wDGnFKA3 oFJhgcYolWtzDUDdg5XiTONk SVwlj8Bjsh3leKTgIYTxrmtc wtSuPeDeu9NzzJu3RCCpumLk zcByKMLwgiWqX66xoZIhhDGu l9ExBQRhaTxjSiRhhL6vrP4a zEVaIQSkmzSIrXEiwF1oxZhr zO7reXUlsISdsvHshQ6agQ9n dGrcrS0dkENodDWjuJMvlq9u mQdfCTghOZIzagGll9IstcJo c5x5hOReLZNkq6QieLgpZYFl tBVbl5EwBAHppTqqL9CiR4bj g79jNjDMqHofzCOlaGIjslIl abEobH2xp3ngX4EoZADbfbJo aHM1rJ8fWPtoBVX4C3zix2Dp MKO4ljIwVJLdri2cpjOvmQdy UBAwjLQzc4Roy8QjB9ayJfQj cGFyXHBhclxmMCBUaGlzIGNh l5IcfIWlMTPjFR8kpwP1bQZ2 HZDiPtorJLPeLuF6S8qucEvv i4bwOSBpboT7lkNrn2o9oJK3 iBJzXSwvD94ir6fwTYWertws lXR5JibhoL30pOYvIWKyga8= Clinical Information Right forearm mass, (test code = involving distal radius 6940915402) Gross Description z7dcdVUdAJAqqDRYFUDbXqfv (test code = iiWhSDEuoTKrQ6SsofsjAAix 0267824536) BR6cVR5kuEajbAOolDFyBB6N XGRlZmYxXHBhcGVydzEyMjQw UDNlnDMubXK4TQBiZA1whicx UDyjIHqzLXRczaF4EQHjoBCv F9OhRITwVV3jxkhhNXD4SYxu pQ4tquROMumdGz6utGDlaKmb ZjFcZmNoYXJzZXQwXGZuaWwg TWCrHEs8iR5PEkzyFMM2LPAU CledPGFvSL5Sb8utKHUliQLb JKM0HUijpKVhQPYsQAQbPOr0 TFAjRXacfGArHP6umSpmMnqx zCedg1XouUHqJGoiLYQaMPJc IDnfBWHmZH2XWcMhGGw8TsJ9 KmLpQXo6KDn4NN9MDqYcVSQp SUR2ILG7DrIbPSu4GEmfCD0O ZHVgGrE0VKv2GdJnKIN6UVKk NEo2KNXqKLpaFHMrqNCuBOqy RiPdFTVqSFtayCUtAW3faAjv bGFpblxmczIwXHBhciANClxw bGFpblxlcGljTmVzdERvYzEg DQpcbHRycGFyXGxpbjBccmlu MCANClxsdHJjaFxmczIwIEEx YaBvY80ZQYWLBWLBCWDtII3G JMXWPLDJS7HIAJVKXTPSS6y3 LODTTAOSA15AYtAsZLQVOWAO TUFHRSBHVUlERUQgRklORSBO RUVETEUgQVNQSVJBVElPTlxw YXIgDQpSZWNlaXZlZCBmcmVz hSJkpwTpOvSeY3IablNmRlPp PL9hgOqim6YxOE0zxTMknAAq HW3reEStnwXoHUD4SQIqfJbj KTYjj37bPTNjtxOtRZfkLSHt k7FlVNDyGKlcAHVgJGjTlhCr YXJlZCAyIHNsaWRlcyAoMSBS r30tyi09x8d3APW3IWuqMPLm k01eFVHusskyUZ2lOMAtOMOa ZS5zW01dFN60KYH5KNjrORFd u46mOMBagmokNJLohyTHCvnl WTFbAVwOSq2vGZQWSqYsRTpF E2KSPSIJOXyEAlmhLj1OPLTJ TVCIERtHMqHYIKTCQRKVGO3S GUrMTpjtIF8ZU2OqX8XVDFFS DcOYG5IENPOLL1EULWeiMUOo FCjlDYV1QSykzJjrFRMzSWhz MY53JGXzx0qpkWDeTjPkCXDf M47fNLTkvQ2mj7ylixKpNH7k aX0eRIkcMNpttrw2jGZfum8m UMUpQWZ2poCrElpeJ13qtVvn X6UyVDxiYWBvqm8mjLmlOD3v IDUvMjUvMjAyMSAxNDMwIGhv wHKlGrOjW4Fpq1MrBUKuR4Sr oFFmr38lsFQdGx1bfUDtAYU1 NGwgB0wxytosOY6jqE1aqq7g cKGuSK4EUIGdwMMaMSTcZeXg bGlkZXMgKDIgSCZFIGFuZCA0 HXnziOLby7D0DKqdMUBzMSGE IDcsIENLIDIwLCBUVEYtMSwg tQFeMOjfiIYsMK1YJCJvadOU GsZqQmPuZ32KRYMHHKLCTTZr PC8TFMCPAKHTA7MKMBKLYGUE R9s9XBFFAVPNX15TSiOzBRDK ZTZSILZOFQFQNVeZPXY0RXAR UkUgQklPUFNZXHBhciANCjIg VLllD7O0G9AwHyIgQ00svaFf NBM3zPz7APPxZAWuEGQoh4Ys RNHtx3ZxzPBnNKSvxkueszpr dV7wiVZgJ9OeYNHsb17nRE1a IHRvIDAuNiBjbSBwbGFjZWQg qK6nZh8zjPEakO5bz95sDW4j OR4cWSPlNJH6JpDrnY48bcHa OLCVcq5ruwEdOAEtyfnzvYum coHjDRDfn8EbNDQdRyoaQwYi aHDacRWDl9kyr9PzRjpwNDPa DQpQcmVwYXJlZCAyIHNsaWRl cyAoMiBIJkUpXHBhciANClxw DPTcJXwGJD2oUCJLVaYoNTkK V8IRTBFSZTmXDpuvHs9GKHFI EAHFSKlPNrZSBFOUPJKHJF4O RQtFPueqAD2HZ7DvE0UQKTGN IEZJTkUgTkVFRExFIEFTUElS VDGEP673JRVAQVikBrfDH9ey uGJhKS3TVmFpNUqzJHQjluEk LGChNFnlQH70TVDnGXRhJKRc odEnr3YaFBzrctUmwgN5TxX0 JcLyToSqLEEqLRNkq7Hwdoje JG5gPXGhZKHtjA8wTAwwaB0c CSbtuDy9ZZWyGOq9XAqwRI4b LWC5Ur0gpQCzQQYoj1ExS9Yj sUZghZ2lf0asTHDzEEoIckSn YXJlZCAyIHNsaWRlcyAoMiBI JkUpXHBhciANClxwYXIgDQpU u7DscNN9DQSqBKSluSMke9vr SCVbKMyysJOiSZ5ZX3xfTROl OEOgWDZcy3pnSJZ8oA3lXAA1 YmVzIHdlcmUgbGFiZWxlZCBv rsBsuXWwx3z2aSDeOSUqOU83 PG8roHSaPF0pUBNclWO2ITDc NOLgaEmjeGRniSblbiBizZ9y EEWeQSD9GJLuzsFzvQXjF9Z4 lO3eBT5uBRVmxIuqtmEgcVLd bnRpdHkuIFxmczIyICANClxw bGFpblxlcGljTmVzdERvYzBc yWfpsK54GTBdrMJeXJY3FO8e XHXynkfbKZQqYUCtCQQ2GHdb pR89cXQpEVRyUVPrqPDojE8T CCEwSXY5VEdtqH26yJPhXN7B NHSrCTK0OIXgnUWtNCS7JB8o fQ0KfQ== Cytology Rapid y9lynSPnQQGxtVCTHBApLlov Assessment (test code mqNbEEPqkXVpS2PzmdeqZLsa = [id number]) TC4fWO5qcSkhnMIseQWnKB2W XGRlZmYxXHBhcGVydzEyMjQw THLrvHJimQX0YCVaUH5rzzvq JMzxTTrqHRUjgpE9MPJxlAEd C6BhUHTaGE6uzngsLYZ1CQji xP7ymzTHJqweIc8hqNQayIbh ZjFcZmNoYXJzZXQwXGZuaWwg VEIzVVv0mC0BPkdhBLS3FKBF GibvZNOoHE8Ow6wnQREyrHGe IQT1NMfiaZMtHUFyUPFcXAb7 BBZvNCkxrEBxTW8ebSxkJtzn jHmex0RhiSXsWPhoGJFsIRHe YNypAIIrPZ8PYpIkORj2VjC3 LsLeHRj6WBw7ZA3DFxJiBNLh NCF3ENW4KbQcFZt7PQbuHB6E CIFjJtY8PZA7QYZzNCH8YNWv SQp0KLQkXTmjOGVsoUOuVMss GhAsXKHwRQvluWMeDC3glNus bGFpblxmczIwXHBhciANClxw bGFpblxlcGljTmVzdERvYzEg DQpcbHRycGFyXGxpbjBccmlu MCANClxsdHJjaFxmczIwIEEx UtRlQ32QFZOOJYEJFSAnCX4X GYQIXQUMD0ETJDDOMOZGU1a6 LFYEYERZE33ELmDvYPXBNELI TUFHRSBHVUlERUQgRklORSBO RUVETEUgQVNQSVJBVElPTlxw AOQpEEyNUYCgORVmxs6zpHRt XZN2IGz0KWGxs12amWIsOs1b lZLeYVQ6QRTgTO8kk2oresoy dQCcJL4YBKQmyLUszYpzqkHS uYdmq3BnXBPjOCMstLIarzOd SXFjTHe3IOORn8HglSn4YCQa f9RhpRQpkUnjWV45NNSthAxd FvHzkRKgEW0BSZGqPAdpfMgq FWF2MAZofAkjPUQ4RNf2HVHe m527VGBsXFJeqN7gcHCosdPr xjIbGDOtaRgizbRpebEqR94i wCIdwEQdcXWlhrKsWg19EOcE ClxwbGFpblxlcGljTmVzdERv QvPxuWuspX54NICkuTYfJXE7 UV5nYVTbfsejRESyQRKcHWS7 GLaxxE55cAVpHXJrWKFrpHAx cM9RFDLgGNQ5QSpizW00vUWo CW5SOLRkSXR3TJSdoXMaDWG4 TO0lmX4EgT== Embedded Images (test code = [id number]) [facility] WITH ULTRASOUND 2021-04-11 15:25:59Ultrasound [...] and draped in the usual sterile fashion. [place] protocol timeoutwas performed verifying correct patient, correct [...] the attending radiologist, I was present in [facility] during the entire procedure.PROCEDURE: After witnessed signed informed consent, the patient's rightforearm was placed on the table in pronated position and dorsal forearmprepped and draped in theusual sterile fashion. [place] protocol timeoutwas performed verifying correct patient, correct [...] right forearmmass, fine-needle aspirate and cores were obtained.[facility] CT ABDOMEN PELVIS W [id number] 18:35:31CT Abdomen and Pelvis with intravenous contrast. [...] of the left kidney. No hydronephrosis. Vessels: Gyho-mh-cfgylbvj atherosclerosis in the aorta and iliac arteries.Patent [...] of the left kidney. No hydronephrosis. Vessels: Ciav-ty-ilyljrky atherosclerosis in the aorta and iliac arteries.Patent [...] 3 mm nonobstructing stone in the left kidney.[facility] TH[facility]AX W CONTRAST 2021-03-15 18:26:49HISTORY: Evaluate for [...] in the vicinity.5. Triple vessel coronary atherosclerosis. [facility], Radiant Results Inft User - 03/15/2021 1:27 [...] aneurysm in the vicinity.5. Triple vessel coronary atherosclerosis.[facility]"
[2022-04-12] MEDS ORDERED: DIAZEPAM 10 MG/2 ML INJ SYRINGE ONE (11:45)
[2022-04-12] MEDS ORDERED: dexAMETHasone 10 MG/ML VIAL ONE (11:45)
[2022-04-12] MEDS ORDERED: KETOROLAC 30 MG/ML INJ ONE (11:45)
--- NOTE | 2022-04-12 11:53 | EDPHYS ---
Physician Documentation [facility] Name: Andrés Medellin Age: 61 yrs Sex: Male : 1960 Arrival Date: 04/12/2022 Time: 10:28 Bed 20 Private MD: J Carlos Gant ED Physician Alex Crabtree HPI: 04/12 11:50 This 61 yrs old Male presents to ER via Ambulatory with complaints of Back Pain. jmm 11:50 The patient presents with pain that is chronic. The symptoms are located in the low jmm back. Onset: The symptoms/episode began/occurred gradually. The pain radiates to the left leg. Associated signs and symptoms: Pertinent negatives: abdominal pain, chest pain, constipation, dysuria, fever, headache, hematuria, incontinence, nausea, numbness, tingling, urinary retention, vomiting, weakness. Modifying factors: The patient symptoms are alleviated by nothing, the patient symptoms are aggravated by any movement. The patient has experienced similar episodes in the past, chronically. Historical: - Allergies: 12:29 No Known Allergies; ap3 - PMHx: 12:29 Hypertension; Lung Cancer; ap3 - Immunization history:: Adult Immunizations unknown. - Social history:: Smoking status: unknown. ROS: 11:50 Constitutional: Negative for fever, chills, and weight loss, Cardiovascular: Negative jmm for chest pain, palpitations, and edema, Respiratory: Negative for shortness of breath, cough, wheezing, and pleuritic chest pain. 11:50 Back: Positive for pain with movement. 11:50 All other systems are negative. Exam: 11:50 Constitutional: This is a well developed, well nourished patient who is awake, alert, jmm and in no acute distress. Head/Face: atraumatic. Eyes: EOMI, no conjunctival erythema appreciated ENT: Moist Mucus Membranes Neck: Trachea midline, Supple Chest/axilla: Normal chest wall appearance and motion. Cardiovascular: Regular rate and rhythm. No edema appreciated Respiratory: Normal respirations, no respiratory distress appreciated Abdomen/GI: Non distended, soft 11:50 Back: pain, that is moderate, of the left low back and right low back. 11:50 Musculoskeletal/extremity: ROM: intact in all extremities. 11:50 Skin: Appearance: Color: normal in color. 11:50 Neuro: Orientation: is normal, Mentation: is normal, Memory: is normal. 11:50 Neuro: extensor hallucis longus intact bilaterally. 11:50 Psych: Behavior/mood is pleasant, cooperative. Vital Signs: 11:38 BP 176 / 96; Pulse 74; Resp 18; Temp 97.7; Pulse Ox 100% on R/A; Weight 90.72 kg (R); mb7 Height 5 ft. 11 in. (180.34 cm) (R); 11:38 Body Mass Index 27.89 (90.72 kg, 180.34 cm) [facility] MDM: 10:41 Patient medically screened. [facility] 11:50 Data reviewed: vital signs, nurses notes. Counseling: I had a detailed discussion with cinthya the patient and/or guardian regarding: the historical points, exam findings, and any diagnostic results supporting the discharge/admit diagnosis, the need for outpatient follow up, to return to the emergency department if symptoms worsen or persist or if there are any questions or concerns that arise at home. 04/12 10:41 Order name: Saline Lock; Complete Time: 11:38 [facility] Administered Medications: 11:47 Drug: Valium (diazepam) 5 mg Route: IVP; Site: left antecubital; ap3 12:10 Follow up: Response: No adverse reaction ap3 11:47 Drug: Decadron - Dexamethasone 10 mg Route: IVP; Site: left antecubital; ap3 12:10 Follow up: Response: No adverse reaction ap3 11:48 Drug: Ketorolac 30 mg Route: IVP; Site: left antecubital; ap3 12:10 Follow up: Response: No adverse reaction ap3 12:20 Drug: morphine 4 mg Route: IVP; Infused Over: 4 mins; Site: left antecubital; ap3 12:28 Follow up: Response: No adverse reaction ap3 Disposition: 18:19 Co-signature as Attending Physician, Alex Crabtree MD. rn Disposition Summary: 04/12/22 11:51 Discharge Ordered Location: Home marv Condition: Stable marv Diagnosis - Sciatica cinthya Followup: cinthya - With: Private Physician - When: 2 - 3 days - Reason: Recheck today's complaints, Continuance of care, Re-evaluation by your physician Discharge Instructions: - Discharge Summary Sheet cinthya - Sciatica marv Forms: - Medication Reconciliation Form [facility] - Thank You Letter jmm - Antibiotic Education cinthya - Prescription Opioid Use [facility] Prescriptions: - Zanaflex 4 mg Oral Tablet - take 1 tablet by ORAL route every 8 hours As needed; 20 tablet; Refills: 0, jmm Product Selection Permitted Signatures: Emmanuel Hightower PA PA jmm Nieto, Roman, MD MD rn Rhonda Shanks RN RN ap3
--- NOTE | 2022-04-12 11:53 | ER ---
Nurse's Notes [facility] Name: Andrés Medellin Age: 61 yrs Sex: Male : 1960 Arrival Date: 04/12/2022 Time: 10:28 Bed 20 Private MD: J Carlos Gant Diagnosis: Sciatica Presentation: 04/12 10:45 Chief complaint: Patient states: was seen here for backpain yesterday, needs more pain iw medicine. Coronavirus screen: At this time, the client does not indicate any symptoms associated with coronavirus-19. Ebola Screen: Patient negative for fever greater than or equal to 101.5 degrees Fahrenheit, and additional compatible Ebola Virus Disease symptoms Patient denies exposure to infectious person. Patient denies travel to an Ebola-affected area in the 21 days before illness onset. No symptoms or risks identified at this time. Initial Sepsis Screen: Does the patient meet any 2 criteria? No. Patient's initial sepsis screen is negative. Does the patient have a suspected source of infection? No. Patient's initial sepsis screen is negative. Risk Assessment: Do you want to hurt yourself or someone else? Patient reports no desire to harm self or others. Onset of symptoms was April 12, 2022. 10:45 Method Of Arrival: Ambulatory iw 10:45 Acuity: INGRIS 4 iw Historical: - Allergies: 12:29 No Known Allergies; ap3 - PMHx: 12:29 Hypertension; Lung Cancer; ap3 - Immunization history:: Adult Immunizations unknown. - Social history:: Smoking status: unknown. Screenin:56 Abuse screen: Denies threats or abuse. Denies injuries from another. Nutritional iw screening: No deficits noted. Tuberculosis screening: No symptoms or risk factors identified. Fall Risk None identified. Assessment: 11:56 General: Appears in no apparent distress. comfortable, Behavior is calm, cooperative. iw Pain: Complains of pain in right low back and left low back. Neuro: Level of Consciousness is awake, alert, obeys commands. Vital Signs: 11:38 BP 176 / 96; Pulse 74; Resp 18; Temp 97.7; Pulse Ox 100% on R/A; Weight 90.72 kg (R); mb7 Height 5 ft. 11 in. (180.34 cm) (R); 11:38 Body Mass Index 27.89 (90.72 kg, 180.34 cm) mb7 ED Course: 10:28 Patient arrived in ED. am2 10:28 J Carlos Gant is Private Physician. am2 10:35 [facility] jmm 10:35 Alex Crabtree MD is Attending Physician. [facility] 10:45 Vernell Garcia, RN is Primary Nurse. iw 10:46 Triage completed. iw 11:38 Inserted saline lock: 20 gauge in left antecubital area, using aseptic technique. mb7 11:39 Patient has correct armband on for positive identification. Bed in low position. Call mb7 light in reach. Side rails up X 1. Door closed. Noise minimized. Warm blanket given. Pillow given. 12:28 No provider procedures requiring assistance completed. IV discontinued, intact, ap3 bleeding controlled, No redness/swelling at site. Pressure dressing applied. 12:29 Arm band placed on right wrist. ap3 Administered Medications: 11:47 Drug: Valium (diazepam) 5 mg Route: IVP; Site: left antecubital; ap3 12:10 Follow up: Response: No adverse reaction ap3 11:47 Drug: Decadron - Dexamethasone 10 mg Route: IVP; Site: left antecubital; ap3 12:10 Follow up: Response: No adverse reaction ap3 11:48 Drug: Ketorolac 30 mg Route: IVP; Site: left antecubital; ap3 12:10 Follow up: Response: No adverse reaction ap3 12:20 Drug: morphine 4 mg Route: IVP; Infused Over: 4 mins; Site: left antecubital; ap3 12:28 Follow up: Response: No adverse reaction ap3 Medication: 12:29 VIS not applicable for this client. ap3 Outcome: 11:51 Discharge ordered by . m 12:29 Discharged to home ambulatory, with family. ap3 12:29 Condition: good 12:29 Discharge instructions given to patient, Instructed on discharge instructions, follow up and referral plans. medication usage, Demonstrated understanding of instructions, follow-up care, medications, Prescriptions given X 1. 12:43 Patient left the ED. iw Signatures: Emmanuel Hightower PA PA Vernell Beckford, RN RN iw Rhonda Ojeda am2 Prokisch, Rhonda, RN RN ap3 Breneman, Sarah mb7
[2022-04-12] MEDS ORDERED: MORPHINE 4 MG/ML SYR ONE (12:30)
[2022-04-12 13:03] VITALS: BP 176/96; TEMP 97.7; O2SAT 100
== END 2022-04-12 12:43 | disposition home or self-care (01) ==
LOC: ER 10:27
DX: M54.30 Sciatica, unspecified side (principal); I10 Essential (primary) hypertension; Z85.118 Personal history of other malignant neoplasm of bronchus and lung
CPT/HCPCS: 96375; 96374; 99283; J3360; J1100